=== PATIENT | male | born 1935 | race Caucasian/White ===

== ENCOUNTER 2017-02-25 21:55 | Inpatient (IN) | payer OTHER ==
[2017-02-25 21:55] VITALS: BMI 22.3
[2017-02-25] MEDS ORDERED: cefTRIAXone IV 1 gm in Dextros 1 GM in Dextrose 5% In Water 50 ML IVPB STA (22:16)
--- NOTE | 2017-02-25 22:31 | C.PDOC ---
History Of Present Illness 81 y/o male presents to ED status post prostate biopsy performed today by Dr. Jha. Patient notes that he felt well afterward around noon today. He states that he started the antibiotic course prescribed by urologist yesterday. Patient reports he developed chills and slight cough starting this evening, describing that he generally did not feel well. Denies nausea, vomiting, hematuria, or other associated symptoms. Time Seen by Provider: 02/25/17 22:04 Chief Complaint (Nursing): Shortness Of Breath History Per: Patient History/Exam Limitations: no limitations Onset/Duration Of Symptoms: Hrs Current Symptoms Are (Timing): Still Present Associated Symptoms: Chills. denies: Fever Recent travel outside of the [place]: No Past Medical History Reviewed: Historical Data, Nursing Documentation, Vital Signs Vital Signs: Last Vital Signs Temp 100.0 F H 02/25/17 23:28 Pulse 86 02/25/17 23:28 Resp 20 02/25/17 23:28 BP 141/66 02/25/17 23:28 Pulse Ox 99 02/25/17 23:28 - Medical History PMH: Benign Prostatic Hyperplasia, CAD, Diabetes (Blood sugar 119), Diverticulitis, HTN, Hypercholesterolemia, Kidney Stones, Chronic Kidney Disease , TIA Surgical History: Cholecystectomy, Coronary Stent (2007) Other Surgeries: CABG - [facility] Procedures CORONAR ARTERIOGR-2 CATH (05/06/14) ESOPHAGOGASTRODUODENOSCOPY [EGD] W/CLOSED BIOPSY (05/06/14) IRRIGATION OF EAR (02/13/14) LEFT HEART CARDIAC CATH (05/06/14) LT HEART ANGIOCARDIOGRAM (05/06/14) Family History: States: Unknown Family Hx - Social History Hx Tobacco Use: No Hx Alcohol Use: No Hx Substance Use: No Review Of Systems Constitutional: Positive for: Chills, Malaise. Negative for: Fever Cardiovascular: Negative for: Chest Pain Respiratory: Negative for: Cough, Shortness of Breath Gastrointestinal: Negative for: Nausea, Vomiting, Abdominal Pain Physical Exam - Physical Exam Appears: Non-toxic, No Acute Distress Skin: Normal Color, Warm, Dry Head: Atraumatic, Normacephalic Chest: Symmetrical Cardiovascular: Rhythm Regular Respiratory: Normal Breath Sounds, No Rales, No Rhonchi, No Wheezing Gastrointestinal/Abdominal: Soft, No Tenderness, No Guarding, No Rebound Back: Normal Inspection Extremity: Normal ROM Neurological/Psych: Oriented x3, Normal Speech, Normal Cognition ED Course And Treatment - Laboratory Results Result Diagrams: 02/25/17 22:44 02/25/17 22:44 ECG: Interpreted By Me ECG Rhythm: Sinus Rhythm, R BBB Rate From EC O2 Sat by Pulse Oximetry: 91 - Radiology CXR: Interpreted by Me CXR Interpretation: Yes: Other (s/p surg, chronic changes both bases) Progress Note: EKG, CxR, bloodwork, UA, and cultures ordered. Treated with rocephin IV. Medical Decision Making Medical Decision Making: Pt remained stable in the ED Cultures sent, rocephin ordered Labs bili 2.5 but 2y/o was 1.5, LFT ok,, and not GB tenderness Lactate not elevated CXR with chronic changes doubt pnx Case discussed with dr Jha, pt was given rocephin and gentamycin at the procedure and dc with cipro Plan admit PCP and continue rocephim Dr Gonzales, [facility] dr Sandra Hong is covering him Case discussed and pt admitted. Disposition - Disposition Disposition: HOSPITALIZED Disposition Time: 00:01 Condition: FAIR - Clinical Impression Clinical Impression: Fever, H/O prostate biopsy - Scribe Statement The provider has reviewed the documentation as recorded by the Odell Mike Provider Scribe Attestation: All medical record entries made by the Scribe were at my direction and personally dictated by me. I have reviewed the chart and agree that the record accurately reflects my personal performance of the history, physical exam, medical decision making, and the department course for this patient. I have also personally directed, reviewed, and agree with the discharge instructions and disposition. Decision To Admit - Pt Status Changed To: Hospital Disposition Of: Inpatient - Admit Certification Admit to Inpatient:: After my assessment, the patient will require hospitalization for at least two midnights. This is because of the severity of symptoms shown, intensity of services needed, and/or the medical risk in this patient being treated as an outpatient. - InPatient: Physician Admission Certification: I certify that this patient requires 2 or more midnights of care for the following reason:: see note - . Bed Request Type: Regular Admitting Physician: Jayeshkuma S Hong Patient Diagnosis: Fever, H/O prostate biopsy
[2017-02-25 22:46] LABS: BASO % 0.2 % (0.0-2.0); EOS % 0.4 % (0.0-4.0); HEMATOCRIT 40.7 % (35.0-51.0); LYMPH # 0.6 K/uL (1.0-4.3); LYMPH % 4.7 % (20.0-40.0); MEAN CELL VOLUME 95.6 fL (80.0-94.0); MEAN CORPUSCULAR HEMOGLOBIN 32.1 pg (27.0-31.0); MEAN CORPUSCULAR HGB CONC 33.5 g/dL (33.0-37.0); MONO # 0.8 K/uL (0.0-0.8); PLATELET COUNT 194 K/uL (130-400); RED CELL DISTRIBUTION WIDTH 14.2 % (11.5-14.5)
[2017-02-25 22:50] LABS: WHITE BLOOD COUNT 11.9 K/uL (4.8-10.8)
[2017-02-25 22:54] LABS: CHLORIDE 103 mmol/L (98-107)
[2017-02-25 22:55] LABS: POTASSIUM 3.9 mmol/L (3.6-5.2); SODIUM 137 mmol/L (132-148)
[2017-02-25 22:57] LABS: ALB/GLOB RATIO 1.4 (1.0-2.1); AST/SGOT 29 U/L (17-59); BILIRUBIN,TOTAL 2.2 mg/dL (0.2-1.3); BLOOD UREA NITROGEN 12 mg/dL (9-20); CARBON DIOXIDE 22 mmol/L (22-30); GFR AFRICAN-AMERICAN > 60; TOTAL PROTEIN 6.7 g/dL (6.3-8.3)
[2017-02-25 22:58] LABS: ALKALINE PHOSPHATASE 67 U/L (38-126); ALT/SGPT 24 U/L (21-72); CALCIUM 8.5 mg/dl (8.6-10.4); GLUCOSE,RANDOM 117 mg/dL (75-110)
[2017-02-25 23:06] LABS: NEUTROPHIL 85 % (50-75); TOTAL CELLS COUNTED 100
[2017-02-25 23:21] LABS: RBC URINE 90 /hpf (0-3); URINE BACTERIA OCC (<OCC); URINE BILIRUBIN NEGATIVE (NEGATIVE); URINE BLOOD 2+ (NEGATIVE); URINE COLOR Yellow (YELLOW); URINE GLUCOSE (UA) 1+ mg/dL (Normal); URINE KETONE NEGATIVE (NEGATIVE); URINE LEUKOCYTE ESTERASE NEG Leu/uL (Negative); URINE PROTEIN NEGATIVE (NEGATIVE); URINE UROBILINOGEN NORMAL mg/dL (0.2-1.0); WBC URINE 2 /hpf (0-5)
[2017-02-25 23:26] LABS: VENOUS BLOOD GAS BASE EXCESS -0.2 mmol/L (0.0-2.0); VENOUS BLOOD GAS PCO2 37 mmHg (40-60); VENOUS BLOOD PH 7.42 (7.32-7.43)
[2017-02-25] MEDS ORDERED: cefTRIAXone IV 1 gm in Dextros 50 ML IVPB ONE (23:34)
[2017-02-26] MEDS ORDERED: Moxifloxacin IV 400mg/250ml NS 250 ML IVPB SCH (00:15)
--- NOTE | 2017-02-26 08:36 | RAD ---
PROCEDURE: CHEST RADIOGRAPH, 1 VIEW HISTORY: Abdominal pain COMPARISON: 05/09/2014 FINDINGS: LUNGS: Moderate venous congestion. Patchy left basilar airspace opacity with associated small left pleural effusion. Right hilar prominence. Right midlung atelectasis. Upper lobe granulomatous changes. PLEURA: As above. CARDIOVASCULAR: Status post median sternotomy and CABG. OSSEOUS STRUCTURES: No significant abnormalities. VISUALIZED UPPER ABDOMEN: Normal. OTHER FINDINGS: None. IMPRESSION: Moderate venous congestion. Patchy left basilar airspace opacity with associated small left pleural effusion. Right hilar prominence. Right midlung atelectasis. Upper lobe granulomatous changes.
[2017-02-26] MEDS: (Novolog) Insulin Aspart, Recombinant 100 u/ml 10 ml vial SC SCH ×4 (09:33→21:18)
[2017-02-26] MEDS: Pantoprazole 40 mg EC Tab PO SCH (10:35)
[2017-02-26] MEDS: DUTASTERIDE 0.5 MG PO SCH (10:37)
--- NOTE | 2017-02-26 12:20 | CON ---
DATE: 02/26/2017 BRIEF HISTORY: The patient is an 81-year-old male from the [facility] with supposedly a diagnosis of prostate cancer diagnosed in the [facility] several years ago, but the patient was unable to bring any type of pathology reports from the [facility] to justify this diagnosis. The patient has been followed for several years and his PSA gradually started rising, and the patient had an eventual total PSA with 4Kscore which was 2.75 and 25% respectively, indicating a high risk for aggressive prostate cancer on a future prostate biopsy. A prostate MRI was done at [facility] on 01/10/2017 which showed a PIRADS 3 lesion in the peripheral zone measuring 1.6 x 0.9 cm in the left posterior lateral aspect of the upper mid gland. The patient eventually went for an MRI/US fusion guided TRUS PNBx with UroNav done at [facility] in [place] on 02/25/2017 with no adverse events during the procedure and a minimal amount of blood loss during the procedure. The patient went home and eventually spiked a temperature over 102 requiring him to come to [facility] Emergency Room for evaluation and treatment. The patient did receive IV Rocephin 1 gram and IV gentamicin 160 mg during the procedure. The patient was started back on IV Rocephin in the Emergency Room at [facility]. The patient is now being seen today and is currently feeling much better. He denies any dysuria, gross hematuria, renal colic, or abdominal pain this morning. His temperature this morning is 99.5. The patient was not on Plavix. The patient is ALLERGIC TO PLAVIX; that is his only allergy to medication. PHYSICAL EXAMINATION: GENERAL: The patient is a well-developed, well-nourished male. He is alert, oriented. HEENT: Grossly within normal limits. ABDOMEN: Soft, not distended or tender. No CVA tenderness. No suprapubic tenderness. VITAL SIGNS: Today, 02/26/2017, again shows a temperature of 99.5, pulse was 86 , blood pressure is 124/64, respirations are 20 and his O2 sat on room air is 95 %. LABORATORY EVALUATION: On 02/25/2017 showed a CBC with a WBC count of 11.9, hemoglobin of 13.6, hematocrit of 40.7 and a platelet count of 194,000. His chem profile shows a sodium of 137, potassium 3.9, chloride 103, CO2 22, BUN and creatinine of 12 and 0.9 respectively, with a GFR greater than 60. Random glucose was 117. Calcium was 8.5. Total bilirubin 2.2, AST was 29, ALT was 24. Urinalysis shows the color was yellow, clarity was clear, pH was 7.0, specific gravity 1.012; protein negative, glucose 1+, ketones negative, blood 2+ ; nitrite and bilirubin both negative, urobilinogen normal, leukocyte esterase negative, 2 WBCs, 90 RBCs and occasional bacteria per high-power field. DIAGNOSTIC IMPRESSION: Transient septicemia, status post MRI/US transrectal ultrasonography with prostate needle biopsy done on 02/25/2017 at [facility] in [place]. No definite urosepsis at this time according to his urinalysis. We will check the urine cultures and blood cultures. PLAN: Continue the patient on IV antibiotics and eventually discharge back home on oral antibiotics, which can include either Cipro or Ceftin 500 mg b.i.d. for at least 10 days. The patient will be seen in office followup in 2 weeks to discuss the results of the pathology. Efra Jha MD cc: [id number] TT: 02/26/2017 12:19:51 Confirmation # [id number] Dictation # [id number] [email or web address]
--- NOTE | 2017-02-26 18:30 | CP.PCM.CON ---
History of Present Illness - History of Present Illness History of Present Illness: 81 y/o male presents to ED status post prostate biopsy performed today by Dr. Jha. Patient notes that he felt well afterward around noon today. He states that he started the antibiotic course prescribed by urologist yesterday. Patient reports he developed chills and slight cough starting this evening, describing that he generally did not feel well. Denies nausea, vomiting, hematuria, or other associated symptoms. - Medical History PMH: Benign Prostatic Hyperplasia, CAD, Diabetes (Blood sugar 119), Diverticulitis, HTN, Hypercholesterolemia, Kidney Stones, Chronic Kidney Disease , TIA Surgical History: Cholecystectomy, Coronary Stent (2007) Other Surgeries: CABG Past Patient History - Past Medical History & Family History Past Medical History?: Yes - Past Social History Smoking Status: Never Smoked - CARDIAC Hx Cardiac Disorders: Yes Hx Hypercholesterolemia: Yes Hx Hypertension: Yes - PULMONARY Hx Respiratory Disorders: Yes Hx Respiratory Tract Infection: Yes () - NEUROLOGICAL Hx Neurological Disorder: Yes Hx Transient Ischemic Attacks (TIA): Yes - HEENT Hx HEENT Problems: Yes Other/Comment: impacted cerumen, otalgia - RENAL Hx Chronic Kidney Disease: Yes Hx Dialysis: No Hx Kidney Stones: Yes Hx Neurogenic Bladder: No Hx Pyelonephritis: No Hx Renal (Kidney) Cancer: No Hx Renal Failure: No - ENDOCRINE/METABOLIC Hx Endocrine Disorders: No - HEMATOLOGICAL/ONCOLOGICAL Hx Blood Disorders: No - INTEGUMENTARY Hx Dermatological Problems: No - MUSCULOSKELETAL/RHEUMATOLOGICAL Hx Falls: No - GASTROINTESTINAL Hx Gastrointestinal Disorders: Yes Hx Diverticulitis: Yes - GENITOURINARY/GYNECOLOGICAL Hx Genitourinary Disorders: Yes Hx Prostate Problems: Yes - PSYCHIATRIC Hx Substance Use: No - SURGICAL HISTORY Hx Surgeries: Yes Hx Cholecystectomy: Yes Hx Coronary Stent: Yes (2007) - ANESTHESIA Hx Anesthesia: Yes Hx Anesthesia Reactions: No Hx Malignant Hyperthermia: No Has any member of the family had a problem w/ anesthesia?: No Meds Allergies/Adverse Reactions: Allergies Allergy/AdvReac Type Severity Reaction Status Date / Time clopidogrel bisulfate Allergy Mild ITCHING Verified 02/26/17 07:54 [From Plavix] moxifloxacin HCl Allergy Mild ITCHING Verified 02/26/17 07:54 [From Avelox] - Medications Medications: Current Medications Acetaminophen (Tylenol 325mg Tab) 650 mg PO Q6 PRN PRN Reason: Pain, moderate (4-7) Aspirin (Ecotrin) 81 mg PO DAILY COUNT INCLUDES [facility] Last Admin: 02/26/17 10:35 Dose: 81 mg Heparin Sodium (Porcine) (Heparin) 5,000 units SC Q12 COUNT INCLUDES THE [facility] Home Med (Patient's Own Medication) 1 tab PO DAILY COUNT INCLUDES THE [facility] Last Admin: 02/26/17 10:37 Dose: 1 tab Ceftriaxone Sodium 1 gm/ (Sodium Chloride) 100 mls @ 100 mls/hr IVPB DAILY@ 1330 COUNT INCLUDES THE [facility] Last Admin: 02/26/17 14:01 Dose: 100 mls/hr Insulin Aspart (Novolog) 0 unit SC QID COUNT INCLUDES THE [facility] PRN Reason: Protocol Last Admin: 02/26/17 17:20 Dose: Not Given Metoprolol Tartrate (Lopressor) 50 mg PO DAILY COUNT INCLUDES THE [facility] Last Admin: 02/26/17 10:35 Dose: 50 mg Pantoprazole Sodium (Protonix Ec Tab) 40 mg PO DAILY COUNT INCLUDES THE [facility] Last Admin: 02/26/17 10:35 Dose: 40 mg Rosuvastatin Calcium (Crestor) 10 mg PO [facility] Results - Vital Signs Recent Vital Signs: Last Vital Signs Temp 98.4 F 02/26/17 16:00 Pulse 63 02/26/17 16:47 Resp 20 02/26/17 16:00 BP 120/64 02/26/17 16:00 Pulse Ox 98 02/26/17 16:00 - Labs Result Diagrams: 02/25/17 22:44 02/25/17 22:44 Labs: Laboratory Results - last 24 hr 02/26/17 02/26/17 02/26/17 08:46 12:10 16:09 POC Glucose (mg/dL) 120 H 97 137 H
--- NOTE | 2017-02-26 18:50 | CP.PCM.HP ---
History of Present Illness - History of Present Illness History of Present Illness: 81-year-old male presented to ED S/P prostate biopsy performed today by Dr. Jha. Patient notes that he felt well afterward around noon today. He states that he started the antibiotic course prescribed by it urologist yesterday. Patient reports he developed chills and a slight cough starting this evening, describing that he generally did not feel well. Denies nausea, vomiting, hematuria or any other associated symptoms. Present on Admission - Present on Admission Any Indicators Present on Admission: No Past Patient History - Past Medical History & Family History Past Medical History?: Yes - Past Social History Smoking Status: Never Smoked - CARDIAC Hx Cardiac Disorders: Yes Hx Hypercholesterolemia: Yes Hx Hypertension: Yes - PULMONARY Hx Respiratory Disorders: Yes Hx Respiratory Tract Infection: Yes (UPPER) - NEUROLOGICAL Hx Neurological Disorder: Yes Hx Transient Ischemic Attacks (TIA): Yes - HEENT Hx HEENT Problems: Yes Other/Comment: impacted cerumen, otalgia - RENAL Hx Chronic Kidney Disease: Yes Hx Dialysis: No Hx Kidney Stones: Yes Hx Neurogenic Bladder: No Hx Pyelonephritis: No Hx Renal (Kidney) Cancer: No Hx Renal Failure: No - ENDOCRINE/METABOLIC Hx Endocrine Disorders: No - HEMATOLOGICAL/ONCOLOGICAL Hx Blood Disorders: No - INTEGUMENTARY Hx Dermatological Problems: No - MUSCULOSKELETAL/RHEUMATOLOGICAL Hx Falls: No - GASTROINTESTINAL Hx Gastrointestinal Disorders: Yes Hx Diverticulitis: Yes - GENITOURINARY/GYNECOLOGICAL Hx Genitourinary Disorders: Yes Hx Prostate Problems: Yes - PSYCHIATRIC Hx Substance Use: No - SURGICAL HISTORY Hx Surgeries: Yes Hx Cholecystectomy: Yes Hx Coronary Stent: Yes (2007) - ANESTHESIA Hx Anesthesia: Yes Hx Anesthesia Reactions: No Hx Malignant Hyperthermia: No Has any member of the family had a problem w/ anesthesia?: No Meds Allergies/Adverse Reactions: Allergies Allergy/AdvReac Type Severity Reaction Status Date / Time clopidogrel bisulfate Allergy Mild ITCHING Verified 06/12/17 10:06 [From Plavix] moxifloxacin HCl Allergy Mild ITCHING Verified 06/12/17 10:06 [From Avelox] Physical Exam - Constitutional Appears: Well - Head Exam Head Exam: ATRAUMATIC, NORMAL INSPECTION, NORMOCEPHALIC - Eye Exam Eye Exam: EOMI, Normal appearance, PERRL Pupil Exam: NORMAL ACCOMODATION, PERRL - ENT Exam ENT Exam: Mucous Membranes Dry - Neck Exam Neck exam: Positive for: Normal Inspection - Respiratory Exam Respiratory Exam: Decreased Breath Sounds - Cardiovascular Exam Cardiovascular Exam: REGULAR RHYTHM, +S1, +S2 - GI/Abdominal Exam GI & Abdominal Exam: Diminished Bowel Sounds, Soft - Rectal Exam Rectal Exam: Deferred Results - Vital Signs Recent Vital Signs: Last Vital Signs Temp 98.4 F 02/26/17 16:00 Pulse 63 02/26/17 16:47 Resp 20 02/26/17 16:00 BP 120/64 02/26/17 16:00 Pulse Ox 98 02/26/17 16:00 - Labs Result Diagrams: 02/28/17 16:56 02/28/17 16:56 Labs: Laboratory Results - last 24 hr 02/26/17 02/26/17 02/26/17 08:46 12:10 16:09 POC Glucose (mg/dL) 120 H 97 137 H Assessment & Plan (1) Abdominal pain, acute, left lower quadrant Status: Acute (2) Acute upper respiratory infection Status: Acute (3) Bronchitis Status: Acute (4) COPD exacerbation Status: Acute (5) Drainage of external ear Status: Acute (6) Dysphagia Status: Acute (7) Dyspnea Status: Acute (8) Fever Status: Acute (9) H/O prostate biopsy Status: Acute (10) Headache Status: Acute (11) Impacted cerumen Status: Acute (12) Otalgia Status: Acute (13) Pneumonia Status: Acute - Assessment and Plan (Free Text) Plan: Consult ID Consult nephrology Aspirin Porcine Ceftriaxone NovoLog Lopressor Protonix Crestor
--- NOTE | 2017-02-27 01:32 | CON ---
DATE: 02/26/2017 SUMMARY: This is an 81-year-old male, patient of Dr. Austin Hong, referred for infectious dise ase evaluation with urosepsis. The patient was in his usual state of health until the day of admissi on when he started spiking fevers after having a prostate biopsy for BPH. The patient developed chil ls, fatigue, slight cough and generalized malaise. He contacted his urologist, who advised Emergency Room evaluation. ER evaluation consisted of septic workup, which revealed likely urosepsis and the patient was started on IV antibiotic therapy and infectious disease consultation was requested. It s hould be noted the patient has multiple comorbidities. PAST MEDICAL HISTORY: Coronary artery disease status post CABG, diabetes, diverticulitis, hypertensi on, hyperlipidemia, chronic kidney disease, nephrolithiasis. PAST SURGICAL HISTORY: Positive for cholecystectomy, positive for coronary stent 2007. Also positiv e for CABG. MEDICATIONS: Rocephin 1 gram IV daily, Crestor 10 mg p.o. daily, aspirin 81 mg p.o. daily, heparin 5 000 subQ b.i.d., metoprolol 50 mg p.o. b.i.d., insulin according to sliding scale, pantoprazole, and Tylenol. ALLERGIES: INCLUDE PLAVIX AND AVELOX. FAMILY HISTORY: Positive for hypertension. SOCIAL HISTORY: Does not drink, smoke, or use intravenous drugs. REVIEW OF SYSTEMS: Positive for fever, chills. Denies chest pain, no headache, no neck stiffness, n o photophobia, no loss of consciousness, no seizures. No abdominal pain, nausea, vomiting, diarrhea. No change in bowel habits. No frequency or urgency of urination. No loss of consciousness. No re cent travel. No pets. No exposure to toxins or chemicals. LABORATORY DATA: Reveal a white count of 11,000, left shift, hemoglobin 12, platelet count 267,000. BUN and creatinine levels noted. Urinalysis showed white blood cells, red blood cells. Blood cultu res done are pending. Urine culture is pending. IMPRESSION: Possible urosepsis, status post prostate biopsy, rule out bacteremia. No gross evidence of pneumonia. Chest x-ray to be reviewed. Agree with current IV antibiotic therapy. Will follow w ith you and add further recommendations. Thank you very much for allowing me to participate in the care of this patient. Antonio Huddleston MD cc: [id number] TT: 02/27/2017 01:32:19 Confirmation # [id number] Dictation # [id number] mn
[2017-02-27 06:55] LABS: CHLORIDE 103 mmol/L (98-107); POTASSIUM 3.6 mmol/L (3.6-5.2); SODIUM 136 mmol/L (132-148)
[2017-02-27 06:57] LABS: GFR AFRICAN-AMERICAN > 60
[2017-02-27 06:58] LABS: BLOOD UREA NITROGEN 14 mg/dL (9-20); CARBON DIOXIDE 23 mmol/L (22-30); GLUCOSE,RANDOM 118 mg/dL (75-110)
[2017-02-27 07:15] LABS: BASO % 0.1 % (0.0-2.0); EOS % 0.1 % (0.0-4.0); HEMATOCRIT 40.7 % (35.0-51.0); LYMPH % 5.9 % (20.0-40.0); MEAN CELL VOLUME 95.6 fL (80.0-94.0); MEAN CORPUSCULAR HEMOGLOBIN 32.1 pg (27.0-31.0); MEAN CORPUSCULAR HGB CONC 33.5 g/dL (33.0-37.0); MEAN PLATELET VOLUME 8.4 fL (7.2-11.7); MONO # 1.8 K/uL (0.0-0.8); PLATELET COUNT 171 K/uL (130-400); RED CELL DISTRIBUTION WIDTH 14.2 % (11.5-14.5)
[2017-02-27 09:11] LABS: NEUTROPHIL 82 % (50-75); TOTAL CELLS COUNTED 100
[2017-02-27] MEDS: DUTASTERIDE 0.5 MG PO SCH (09:20)
[2017-02-27] MEDS: Pantoprazole 40 mg EC Tab PO SCH (09:20)
[2017-02-27] MEDS: (Novolog) Insulin Aspart, Recombinant 100 u/ml 10 ml vial SC SCH ×4 (09:23→21:20)
--- NOTE | 2017-02-27 17:07 | CP.PCM.PN ---
Subjective - Date & Time of Evaluation Date of Evaluation: 02/27/17 Time of Evaluation: 11:00 - Subjective Subjective: clinically same Objective - Vital Signs/Intake and Output Vital Signs (last 24 hours): Temp Pulse Resp BP Pulse Ox 98.2 F 74 20 111/51 L 97 02/27/17 16:31 02/27/17 16:46 02/27/17 16:31 02/27/17 16:31 02/27/17 16:31 Intake and Output: 02/27/17 02/27/17 06:59 18:59 Intake Total 500 Output Total 300 Balance -300 500 - Medications Medications: Current Medications Acetaminophen (Tylenol 325mg Tab) 650 mg PO Q6 PRN PRN Reason: Pain, moderate (4-7) Aspirin (Ecotrin) 81 mg PO DAILY [facility] Last Admin: 02/27/17 09:19 Dose: 81 mg Heparin Sodium (Porcine) (Heparin) 5,000 units SC Q12 [facility] Last Admin: 02/27/17 09:20 Dose: 5,000 units Home Med (Patient's Own Medication) 1 tab PO DAILY [facility] Last Admin: 02/27/17 09:20 Dose: 1 tab Ceftriaxone Sodium 1 gm/ (Sodium Chloride) 100 mls @ 100 mls/hr IVPB DAILY@ 1330 [facility] Last Admin: 02/27/17 13:27 Dose: 100 mls/hr Insulin Aspart (Novolog) 0 unit SC QID [facility] PRN Reason: Protocol Last Admin: 02/27/17 13:00 Dose: Not Given Metoprolol Tartrate (Lopressor) 50 mg PO DAILY [facility] Last Admin: 02/27/17 09:20 Dose: 50 mg Pantoprazole Sodium (Protonix Ec Tab) 40 mg PO DAILY [facility] Last Admin: 02/27/17 09:20 Dose: 40 mg Rosuvastatin Calcium (Crestor) 10 mg PO HS [facility] Last Admin: 02/26/17 21:16 Dose: 10 mg - Labs Labs: 02/27/17 06:32 02/27/17 06:32 - Constitutional Appears: Well - Head Exam Head Exam: ATRAUMATIC, NORMAL INSPECTION, NORMOCEPHALIC - Eye Exam Eye Exam: EOMI, Normal appearance, PERRL Pupil Exam: NORMAL ACCOMODATION, PERRL - ENT Exam ENT Exam: Mucous Membranes Moist, Normal Exam - Neck Exam Neck Exam: Full ROM, Normal Inspection. absent: Lymphadenopathy - Respiratory Exam Respiratory Exam: Decreased Breath Sounds - Cardiovascular Exam Cardiovascular Exam: REGULAR RHYTHM, +S1, +S2 - GI/Abdominal Exam GI & Abdominal Exam: Soft, Diminished Bowel Sounds - Rectal Exam Rectal Exam: Deferred Assessment and Plan (1) Abdominal pain, acute, left lower quadrant Status: Acute (2) Acute upper respiratory infection Status: Acute (3) Bronchitis Status: Acute (4) COPD exacerbation Status: Acute (5) Drainage of external ear Status: Acute (6) Dysphagia Status: Acute (7) Dyspnea Status: Acute (8) Fever Status: Acute (9) H/O prostate biopsy Status: Acute (10) Headache Status: Acute (11) Impacted cerumen Status: Acute (12) Otalgia Status: Acute (13) Pneumonia Status: Acute - Assessment and Plan (Free Text) Plan: Dr. sanches Continue aspirin Ceftriaxone Accu-Chek Insulin aspart Lopressor
--- NOTE | 2017-02-27 19:12 | CP.PCM.PN ---
Subjective - Date & Time of Evaluation Date of Evaluation: 02/27/17 Time of Evaluation: 08:00 - Subjective Subjective: fever s/p prostate bx would get eval cont iv rx Objective - Vital Signs/Intake and Output Vital Signs (last 24 hours): Temp Pulse Resp BP Pulse Ox 98.2 F 74 20 111/51 L 97 02/27/17 16:31 02/27/17 16:46 02/27/17 16:31 02/27/17 16:31 02/27/17 16:31 Intake and Output: 02/27/17 02/28/17 18:59 06:59 Intake Total 500 Balance 500 - Medications Medications: Current Medications Acetaminophen (Tylenol 325mg Tab) 650 mg PO Q6 PRN PRN Reason: Pain, moderate (4-7) Aspirin (Ecotrin) 81 mg PO DAILY [facility] Last Admin: 02/27/17 09:19 Dose: 81 mg Heparin Sodium (Porcine) (Heparin) 5,000 units SC Q12 [facility] Last Admin: 02/27/17 09:20 Dose: 5,000 units Home Med (Patient's Own Medication) 1 tab PO DAILY [facility] Last Admin: 02/27/17 09:20 Dose: 1 tab Ceftriaxone Sodium 1 gm/ (Sodium Chloride) 100 mls @ 100 mls/hr IVPB DAILY@ 1330 [facility] Last Admin: 02/27/17 13:27 Dose: 100 mls/hr Insulin Aspart (Novolog) 0 unit SC QID [facility] PRN Reason: Protocol Last Admin: 02/27/17 13:00 Dose: Not Given Metoprolol Tartrate (Lopressor) 50 mg PO DAILY [facility] Last Admin: 02/27/17 09:20 Dose: 50 mg Pantoprazole Sodium (Protonix Ec Tab) 40 mg PO DAILY [facility] Last Admin: 02/27/17 09:20 Dose: 40 mg Rosuvastatin Calcium (Crestor) 10 mg PO HS [facility] Last Admin: 02/26/17 21:16 Dose: 10 mg - Labs Labs: 02/27/17 06:32 02/27/17 06:32 - Constitutional Appears: Non-toxic, Cachectic, Chronically Ill - Head Exam Head Exam: NORMOCEPHALIC - Eye Exam Eye Exam: PERRL. absent: Scleral icterus - ENT Exam ENT Exam: Mucous Membranes Dry - Neck Exam Neck Exam: absent: Lymphadenopathy - Respiratory Exam Respiratory Exam: Decreased Breath Sounds, Rhonchi - Cardiovascular Exam Cardiovascular Exam: REGULAR RHYTHM, +S1, +S2 - GI/Abdominal Exam GI & Abdominal Exam: Distended, Soft. absent: Tenderness - Rectal Exam Rectal Exam: Deferred - Exam Exam: NORMAL INSPECTION Assessment and Plan - Assessment and Plan (Free Text) Plan: uti/ r/o sepsis s/p biopsy consider eval monitor urine output may need imaging of kidney
--- NOTE | 2017-02-27 19:54 | PN ---
DATE: 02/27/2017 TIME OF FOLLOWUP: 7:20 p.m. The patient's pathology report is back from his MRI/TRUS PNBx which came back positive for [place] 6 (3+3) prostate cancer which was also associated with high-grade PIN and atypical cells, indicating a [id number] risk disease. The patient currently is feeling relatively comfortable. His white count, however, has increased to 16,000. The patient is currently being followed by Dr. Tara love, infectious disease. His platelet count is 171,000. His chem profile shows a sodium of 136, po tassium 3.6, chloride 103, CO2 of 23, BUN and creatinine of 14 and 1.0 respectively, with a GFR of gr eater than 60. His random glucose was 118, and his calcium was 8.0. His blood cultures are no growt h after 24 hours, and his urine culture is also no growth. His chest x-ray done on 02/25/2017 showed patchy left basilar airspace opacity with associated small left pleural effusion, and a right mid-lung atelectasis, and upper lobe granulomatous changes. Plan for this patient and treatment of his septicemia is to continue IV antibiotics as per Dr. Huddleston . Efra Jha MD cc: [id number] TT: 02/27/2017 19:53:32 Confirmation # [id number] Dictation # [id number] andrea
--- NOTE | 2017-02-28 08:09 | US ---
Abdominal ultrasound History: Abdominal pain. Comparison: None available. Technique: Real-time sonography was performed through the abdomen. Findings: Liver: 13.2 centimeters in length. Increased echogenicity suggestive for fatty infiltration. Prior cholecystectomy. Common bile duct measures 6.4 millimeters, within normal limits. Visualized portions of the pancreas are preserved. Pancreatic tail not well visualized. Spleen measures 8.1 centimeters in length, within normal limits. Visualized portions of the aorta and IVC are preserved. Right kidney: 11.3 x 5.9 x 4.8 centimeters. No calculi or hydronephrosis. Hypoechoic cysts measuring 3.3 x 3.7 x 3.7 centimeters and 1.1 x 1.2 x 1.1 centimeters. Left Kidney: 10.2 x 5.7 x 4.9 centimeters. No calculi or hydronephrosis. Hypoechoic prominent cyst measuring 8.6 x 9.1 x 8.6 centimeters. In addition, there is a suggestion of a heterogeneous echogenic solid mass measuring 3.6 x 2.8 x 3.2 centimeters. Impression: Suggestion of a 3.6 centimeter heterogeneous echogenic mass in the left kidney. Further evaluation with contrast-enhanced multiphasic CT or MR is recommended to better evaluate this lesion and exclude possible neoplasm. Fatty infiltration of the liver. Prior cholecystectomy. Pancreas not well visualized. Bilateral renal cysts. These findings were preliminarily reported at 8:46 p.m. on 02/27/[address] Miles Sutton from [facility].
[2017-02-28] MEDS: (Novolog) Insulin Aspart, Recombinant 100 u/ml 10 ml vial SC SCH ×4 (10:10→21:28)
[2017-02-28] MEDS: Pantoprazole 40 mg EC Tab PO SCH (10:14)
[2017-02-28] MEDS: DUTASTERIDE 0.5 MG PO SCH (10:14)
--- NOTE | 2017-02-28 14:25 | CP.PCM.PN ---
Subjective - Date & Time of Evaluation Date of Evaluation: 02/28/17 Time of Evaluation: 11:00 - Subjective Subjective: clinically same Objective - Vital Signs/Intake and Output Vital Signs (last 24 hours): Temp Pulse Resp BP Pulse Ox 98 F 73 20 135/60 96 02/28/17 08:55 02/28/17 08:55 02/28/17 08:55 02/28/17 08:55 02/28/17 08:55 Intake and Output: 02/28/17 02/28/17 06:59 18:59 Intake Total 350 Output Total 600 Balance -250 - Medications Medications: Current Medications Acetaminophen (Tylenol 325mg Tab) 650 mg PO Q6 PRN PRN Reason: Pain, moderate (4-7) Aspirin (Ecotrin) 81 mg PO DAILY [facility] 234 BEDS AT THE [facility] Last Admin: 02/28/17 10:14 Dose: 81 mg Heparin Sodium (Porcine) (Heparin) 5,000 units SC Q12 COUNTS INCLUDE 234 BEDS AT THE [facility] Last Admin: 02/28/17 10:14 Dose: 5,000 units Home Med (Patient's Own Medication) 1 tab PO DAILY [facility]S INCLUDE 234 BEDS AT THE [facility] Last Admin: 02/28/17 10:14 Dose: 1 tab Ceftriaxone Sodium 1 gm/ (Sodium Chloride) 100 mls @ 100 mls/hr IVPB DAILY@ 1330 [facility]S [facility]CLUDE 234 BEDS AT THE [facility] Last Admin: 02/28/17 13:00 Dose: 100 mls/hr Insulin Aspart (Novolog) 0 unit SC QID COUNTS INCLUDE 234 BEDS AT THE [facility] PRN Reason: Protocol Last Admin: 02/28/17 12:59 Dose: Not Given Metoprolol Tartrate (Lopressor) 50 mg PO DAILY COUNTS INCLUDE 234 BEDS AT THE [facility] Last Admin: 02/28/17 10:15 Dose: 50 mg Pantoprazole Sodium (Protonix Ec Tab) 40 mg PO DAILY [facility]S INCLUDE 234 BEDS AT THE [facility] Last Admin: 02/28/17 10:14 Dose: 40 mg Rosuvastatin Calcium (Crestor) 10 mg PO HS COUNTS INCLUDE 234 BEDS AT THE [facility] Last Admin: 02/27/17 21:19 Dose: 10 mg - Labs Labs: 02/27/17 06:32 02/27/17 06:32 - Constitutional Appears: Well - Head Exam Head Exam: ATRAUMATIC, NORMAL INSPECTION, NORMOCEPHALIC - Eye Exam Eye Exam: EOMI, Normal appearance, PERRL Pupil Exam: NORMAL ACCOMODATION, PERRL - ENT Exam ENT Exam: Mucous Membranes Moist, Normal Exam - Neck Exam Neck Exam: Full ROM, Normal Inspection. absent: Lymphadenopathy - Respiratory Exam Respiratory Exam: Decreased Breath Sounds - Cardiovascular Exam Cardiovascular Exam: REGULAR RHYTHM, +S1, +S2 - GI/Abdominal Exam GI & Abdominal Exam: Soft, Diminished Bowel Sounds - Rectal Exam Rectal Exam: Deferred Assessment and Plan (1) Abdominal pain, acute, left lower quadrant Status: Acute (2) Acute upper respiratory infection Status: Acute (3) Bronchitis Status: Acute (4) COPD exacerbation Status: Acute (5) Drainage of external ear Status: Acute (6) Dysphagia Status: Acute (7) Dyspnea Status: Acute (8) Fever Status: Acute (9) H/O prostate biopsy Status: Acute (10) Headache Status: Acute (11) Impacted cerumen Status: Acute (12) Otalgia Status: Acute (13) Pneumonia Status: Acute - Assessment and Plan (Free Text) Plan: Awaiting culture results Continue same Blood sugar monitoring Statin Aspirin DVT prophylaxis Consults on board
[2017-02-28 17:03] LABS: BASO % 0.2 % (0.0-2.0); EOS % 0.1 % (0.0-4.0); HEMATOCRIT 41.9 % (35.0-51.0); LYMPH # 0.7 K/uL (1.0-4.3); LYMPH % 4.5 % (20.0-40.0); MEAN CELL VOLUME 96.1 fL (80.0-94.0); MEAN CORPUSCULAR HEMOGLOBIN 31.9 pg (27.0-31.0); MEAN CORPUSCULAR HGB CONC 33.2 g/dL (33.0-37.0); MEAN PLATELET VOLUME 8.5 fL (7.2-11.7); MONO # 1.8 K/uL (0.0-0.8); MONO % 11.8 % (0.0-10.0); PLATELET COUNT 182 K/uL (130-400); RED CELL DISTRIBUTION WIDTH 14.3 % (11.5-14.5)
[2017-02-28 17:10] LABS: CHLORIDE 100 mmol/L (98-107); POTASSIUM 3.6 mmol/L (3.6-5.2); SODIUM 138 mmol/L (132-148)
[2017-02-28 17:12] LABS: ALB/GLOB RATIO 1.2 (1.0-2.1); ALKALINE PHOSPHATASE 78 U/L (38-126); AST/SGOT 37 U/L (17-59); BILIRUBIN,TOTAL 1.5 mg/dL (0.2-1.3); CARBON DIOXIDE 23 mmol/L (22-30); GFR AFRICAN-AMERICAN > 60; TOTAL PROTEIN 7.2 g/dL (6.3-8.3)
[2017-02-28 17:13] LABS: ALT/SGPT 33 U/L (21-72); BLOOD UREA NITROGEN 15 mg/dL (9-20); GLUCOSE,RANDOM 126 mg/dL (75-110)
[2017-02-28 17:27] LABS: NEUTROPHIL 86 % (50-75); TOTAL CELLS COUNTED 100
--- NOTE | 2017-02-28 18:42 | CP.PCM.PN ---
Subjective - Date & Time of Evaluation Date of Evaluation: 02/28/17 Time of Evaluation: 08:00 - Subjective Subjective: CULTURES NEG THUS FAR WBC COMING DOEN CONT RX Objective - Vital Signs/Intake and Output Vital Signs (last 24 hours): Temp Pulse Resp BP Pulse Ox 100.6 F H 71 20 103/55 L 97 02/28/17 16:13 02/28/17 16:13 02/28/17 16:13 02/28/17 16:13 02/28/17 16:13 Intake and Output: 02/28/17 02/28/17 06:59 18:59 Intake Total 350 530 Output Total 600 Balance -250 530 - Medications Medications: Current Medications Acetaminophen (Tylenol 325mg Tab) 650 mg PO Q6 PRN PRN Reason: Pain, moderate (4-7) Aspirin (Ecotrin) 81 mg PO DAILY [facility] Last Admin: 02/28/17 10:14 Dose: 81 mg Heparin Sodium (Porcine) (Heparin) 5,000 units SC Q12 [facility] Last Admin: 02/28/17 10:14 Dose: 5,000 units Home Med (Patient's Own Medication) 1 tab PO DAILY [facility] Last Admin: 02/28/17 10:14 Dose: 1 tab Ceftriaxone Sodium 1 gm/ (Sodium Chloride) 100 mls @ 100 mls/hr IVPB DAILY@ 1330 [facility] Last Admin: 02/28/17 13:00 Dose: 100 mls/hr Insulin Aspart (Novolog) 0 unit SC QID [facility] PRN Reason: Protocol Last Admin: 02/28/17 12:59 Dose: Not Given Metoprolol Tartrate (Lopressor) 50 mg PO DAILY [facility] Last Admin: 02/28/17 10:15 Dose: 50 mg Pantoprazole Sodium (Protonix Ec Tab) 40 mg PO DAILY [facility] Last Admin: 02/28/17 10:14 Dose: 40 mg Rosuvastatin Calcium (Crestor) 10 mg PO HS [facility] Last Admin: 02/27/17 21:19 Dose: 10 mg - Labs Labs: 02/28/17 16:56 02/28/17 16:56
[2017-03-01] MEDS: (Novolog) Insulin Aspart, Recombinant 100 u/ml 10 ml vial SC SCH ×4 (09:36→21:51)
[2017-03-01] MEDS: DUTASTERIDE 0.5 MG PO SCH (10:36)
[2017-03-01] MEDS: Pantoprazole 40 mg EC Tab PO SCH (10:36)
--- NOTE | 2017-03-01 13:39 | CP.PCM.PN ---
Subjective - Date & Time of Evaluation Date of Evaluation: 03/01/17 Time of Evaluation: 11:00 - Subjective Subjective: clinically same Objective - Vital Signs/Intake and Output Vital Signs (last 24 hours): Temp Pulse Resp BP Pulse Ox 97.6 F 68 19 112/61 96 03/01/17 08:00 03/01/17 08:00 03/01/17 08:00 03/01/17 08:00 03/01/17 08:00 Intake and Output: 03/01/17 03/01/17 06:59 18:59 Intake Total 240 450 Balance 240 450 - Medications Medications: Current Medications Acetaminophen (Tylenol 325mg Tab) 650 mg PO Q6 PRN PRN Reason: Pain, moderate (4-7) Aspirin (Ecotrin) 81 mg PO DAILY [facility] Last Admin: 02/28/17 10:14 Dose: 81 mg Heparin Sodium (Porcine) (Heparin) 5,000 units SC Q12 [facility] Last Admin: 03/01/17 10:36 Dose: 5,000 units Home Med (Patient's Own Medication) 1 tab PO DAILY [facility] Last Admin: 03/01/17 10:36 Dose: 1 tab Ceftriaxone Sodium 1 gm/ (Sodium Chloride) 100 mls @ 100 mls/hr IVPB DAILY@ 1330 [facility] Last Admin: 02/28/17 13:00 Dose: 100 mls/hr Insulin Aspart (Novolog) 0 unit SC QID [facility] PRN Reason: Protocol Last Admin: 03/01/17 09:36 Dose: Not Given Metoprolol Tartrate (Lopressor) 50 mg PO DAILY [facility] Last Admin: 03/01/17 10:31 Dose: Not Given Pantoprazole Sodium (Protonix Ec Tab) 40 mg PO DAILY [facility] Last Admin: 03/01/17 10:36 Dose: 40 mg Rosuvastatin Calcium (Crestor) 10 mg PO HS [facility] Last Admin: 02/28/17 21:24 Dose: 10 mg - Labs Labs: 02/28/17 16:56 02/28/17 16:56 - Constitutional Appears: Well - Head Exam Head Exam: ATRAUMATIC, NORMAL INSPECTION, NORMOCEPHALIC - Eye Exam Eye Exam: EOMI, Normal appearance, PERRL Pupil Exam: NORMAL ACCOMODATION, PERRL - ENT Exam ENT Exam: Mucous Membranes Moist, Normal Exam - Neck Exam Neck Exam: Full ROM, Normal Inspection. absent: Lymphadenopathy - Respiratory Exam Respiratory Exam: Decreased Breath Sounds - Cardiovascular Exam Cardiovascular Exam: REGULAR RHYTHM, +S1, +S2 - GI/Abdominal Exam GI & Abdominal Exam: Soft, Diminished Bowel Sounds - Rectal Exam Rectal Exam: Deferred Assessment and Plan (1) Abdominal pain, acute, left lower quadrant Status: Acute (2) Acute upper respiratory infection Status: Acute (3) Bronchitis Status: Acute (4) COPD exacerbation Status: Acute (5) Drainage of external ear Status: Acute (6) Dysphagia Status: Acute (7) Dyspnea Status: Acute (8) Fever Status: Acute (9) H/O prostate biopsy Status: Acute (10) Headache Status: Acute (11) Impacted cerumen Status: Acute (12) Otalgia Status: Acute (13) Pneumonia Status: Acute - Assessment and Plan (Free Text) Plan: Dr. sanches Continue antibiotics Accu-Chek Lopressor Labs next a.m.
[2017-03-01] MEDS ORDERED: Benzocaine/Menthol (Cepacol) Lozenge MT PRN (20:35)
[2017-03-02] MEDS: (Novolog) Insulin Aspart, Recombinant 100 u/ml 10 ml vial SC SCH ×4 (10:00→21:28)
[2017-03-02] MEDS: DUTASTERIDE 0.5 MG PO SCH ×2 (10:00→12:53)
[2017-03-02] MEDS: Pantoprazole 40 mg EC Tab PO SCH ×2 (10:00→12:56)
--- NOTE | 2017-03-02 11:36 | CP.PCM.PN ---
Subjective - Date & Time of Evaluation Date of Evaluation: 03/02/17 Time of Evaluation: 11:00 - Subjective Subjective: clinically same Objective - Vital Signs/Intake and Output Vital Signs (last 24 hours): Temp Pulse Resp BP Pulse Ox 97.5 F L 76 20 132/65 96 03/02/17 07:59 03/02/17 07:59 03/02/17 07:59 03/02/17 07:59 03/02/17 07:59 Intake and Output: 03/02/17 03/02/17 06:59 18:59 Intake Total 240 Balance 240 - Medications Medications: Current Medications Acetaminophen (Tylenol 325mg Tab) 650 mg PO Q6 PRN PRN Reason: Pain, moderate (4-7) Aspirin (Ecotrin) 81 mg PO DAILY [facility] Last Admin: 03/02/17 10:00 Dose: Not Given Benzocaine/Menthol (Cepacol Sore Throat) 1 olesya MT Q6 PRN PRN Reason: Sore Throat Last Admin: 03/01/17 20:53 Dose: 1 olesya Home Med (Patient's Own Medication) 1 tab PO DAILY [facility] Last Admin: 03/02/17 10:00 Dose: Not Given Ceftriaxone Sodium 1 gm/ (Sodium Chloride) 100 mls @ 100 mls/hr IVPB DAILY@ 1330 [facility] Last Admin: 03/01/17 13:52 Dose: 100 mls/hr Insulin Aspart (Novolog) 0 unit SC QID [facility] PRN Reason: Protocol Last Admin: 03/02/17 10:00 Dose: Not Given Metoprolol Tartrate (Lopressor) 50 mg PO DAILY [facility] Last Admin: 03/02/17 10:00 Dose: Not Given Pantoprazole Sodium (Protonix Ec Tab) 40 mg PO DAILY [facility] Last Admin: 03/02/17 10:00 Dose: Not Given Rosuvastatin Calcium (Crestor) 10 mg PO HS [facility] Last Admin: 03/01/17 21:47 Dose: 10 mg - Labs Labs: 02/28/17 16:56 02/28/17 16:56 - Constitutional Appears: Well - Head Exam Head Exam: ATRAUMATIC, NORMAL INSPECTION, NORMOCEPHALIC - Eye Exam Eye Exam: EOMI, Normal appearance, PERRL Pupil Exam: NORMAL ACCOMODATION, PERRL - ENT Exam ENT Exam: Mucous Membranes Moist, Normal Exam - Neck Exam Neck Exam: Full ROM, Normal Inspection. absent: Lymphadenopathy - Respiratory Exam Respiratory Exam: Decreased Breath Sounds - Cardiovascular Exam Cardiovascular Exam: REGULAR RHYTHM, +S1, +S2 - GI/Abdominal Exam GI & Abdominal Exam: Soft, Diminished Bowel Sounds - Rectal Exam Rectal Exam: Deferred Assessment and Plan (1) Abdominal pain, acute, left lower quadrant Status: Acute (2) Acute upper respiratory infection Status: Acute (3) Bronchitis Status: Acute (4) COPD exacerbation Status: Acute (5) Drainage of external ear Status: Acute (6) Dysphagia Status: Acute (7) Dyspnea Status: Acute (8) Fever Status: Acute (9) H/O prostate biopsy Status: Acute (10) Headache Status: Acute (11) Impacted cerumen Status: Acute (12) Otalgia Status: Acute (13) Pneumonia Status: Acute - Assessment and Plan (Free Text) Plan: Continue same Continue antibiotics Physical therapy Consults on board Labs noted
--- NOTE | 2017-03-02 15:16 | CP.PCM.PN ---
Subjective - Date & Time of Evaluation Date of Evaluation: 03/02/17 Time of Evaluation: 09:00 - Subjective Subjective: afeb on iv antibiotics left kidney mass noted for possible bx Objective - Vital Signs/Intake and Output Vital Signs (last 24 hours): Temp Pulse Resp BP Pulse Ox 97.5 F L 76 20 132/65 96 03/02/17 07:59 03/02/17 07:59 03/02/17 07:59 03/02/17 07:59 03/02/17 07:59 Intake and Output: 03/02/17 03/02/17 06:59 18:59 Intake Total 240 Balance 240 - Medications Medications: Current Medications Acetaminophen (Tylenol 325mg Tab) 650 mg PO Q6 PRN PRN Reason: Pain, moderate (4-7) Aspirin (Ecotrin) 81 mg PO DAILY [facility] Last Admin: 03/02/17 12:54 Dose: 81 mg Benzocaine/Menthol (Cepacol Sore Throat) 1 olesya MT Q6 PRN PRN Reason: Sore Throat Last Admin: 03/01/17 20:53 Dose: 1 olesya Home Med (Patient's Own Medication) 1 tab PO DAILY [facility] Last Admin: 03/02/17 12:53 Dose: 1 tab Ceftriaxone Sodium 1 gm/ (Sodium Chloride) 100 mls @ 100 mls/hr IVPB DAILY@ 1330 [facility] Last Admin: 03/02/17 13:04 Dose: 100 mls/hr Insulin Aspart (Novolog) 0 unit SC QID [facility] PRN Reason: Protocol Last Admin: 03/02/17 14:00 Dose: Not Given Metoprolol Tartrate (Lopressor) 50 mg PO DAILY [facility] Last Admin: 03/02/17 12:54 Dose: 50 mg Pantoprazole Sodium (Protonix Ec Tab) 40 mg PO DAILY [facility] Last Admin: 03/02/17 12:56 Dose: 40 mg Rosuvastatin Calcium (Crestor) 10 mg PO HS [facility] Last Admin: 03/01/17 21:47 Dose: 10 mg - Labs Labs: 02/28/17 16:56 02/28/17 16:56 - Constitutional Appears: Non-toxic, Cachectic, Chronically Ill - Head Exam Head Exam: NORMOCEPHALIC - Eye Exam Eye Exam: PERRL. absent: Scleral icterus - ENT Exam ENT Exam: Mucous Membranes Dry, Normal External Ear Exam - Neck Exam Neck Exam: absent: Lymphadenopathy - Respiratory Exam Respiratory Exam: Decreased Breath Sounds, Rhonchi - Cardiovascular Exam Cardiovascular Exam: REGULAR RHYTHM, +S1, +S2 - GI/Abdominal Exam GI & Abdominal Exam: Distended, Soft. absent: Tenderness - Rectal Exam Rectal Exam: Deferred - Exam Exam: NORMAL INSPECTION - Extremities Exam Extremities Exam: absent: Calf Tenderness, Pedal Edema - Back Exam Back Exam: absent: CVA tenderness (L), CVA tenderness (R) - Neurological Exam Neurological Exam: Alert, Awake, Oriented x3 - Psychiatric Exam Psychiatric exam: Normal Mood - Skin Skin Exam: Dry, Intact Assessment and Plan (1) Fever Status: Acute (2) H/O prostate biopsy Status: Acute (3) Abdominal pain, acute, left lower quadrant Status: Acute - Assessment and Plan (Free Text) Assessment: left kidney mass uti await cultures for biopsy
--- NOTE | 2017-03-02 23:33 | CARD ---
APPROVED REPORT EKG Measurement Heart [id number] <Conclusion> Normal sinus rhythm Right bundle branch block Abnormal ECG
[2017-03-03] MEDS: (Novolog) Insulin Aspart, Recombinant 100 u/ml 10 ml vial SC SCH ×3 (11:49→17:44)
[2017-03-03] MEDS: Pantoprazole 40 mg EC Tab PO SCH (12:04)
[2017-03-03] MEDS: DUTASTERIDE 0.5 MG PO SCH (12:22)
--- NOTE | 2017-03-03 12:29 | PN ---
DATE: 03/03/2017 FOLLOWUP NOTE DIAGNOSIS: Transient septicemia, status post MRI/ultrasound, TRUS PNBx done at the [facility] the day prior to admission. The patient is currently completely asymptomatic today, and he is afebrile, and they plan to discharg e the patient after being seen by ID - Dr. Huddleston. VITAL SIGNS: His temperature today is 97.6. His pulse rate is 69. His blood pressure is 116/58, an d his respirations are 18, and his O2 sat on room air is 95%. His urine and blood cultures showed no growth during the entire hospitalization, and his CBC was back down towards the normal range of around 12,000. His glucose today is 78. PHYSICAL EXAMINATION: On the patient today his abdomen is soft, not distended, no CVA tenderness. N o suprapubic tenderness. He is currently voiding mustapha urine well without any complaints. He has no dysuria, gross hematuria, renal colic, or abdominal pain. His biopsy again was positive for a [place] 6 (3+3) prostate cancer - somewhere between low risk and medium risk disease. The patient will be seen in office followup in 1 week to discuss further treatm ents. This case was completely discussed with Dr. Hong, and it is believed that this was just an episode o f transient septicemia post-TRUS PNBx. Efra Jha MD cc: [id number] TT: 03/03/2017 12:28:50 Confirmation # [id number] Dictation # [id number] andrea
--- NOTE | 2017-03-03 13:45 | CP.PCM.PN ---
Subjective - Date & Time of Evaluation Date of Evaluation: 03/03/17 Time of Evaluation: 09:45 - Subjective Subjective: PGY2 Medicine Note - Dr. Paulina Hong's service: Patient seen and examined at bedside this AM. Patient fully dressed and wanting to go home. Patient says he still sees some blood in his urine but that it is much improved from admission. Patient has no other complaints. Objective - Vital Signs/Intake and Output Vital Signs (last 24 hours): Temp Pulse Resp BP Pulse Ox 97.6 F 69 18 116/58 L 95 03/03/17 08:47 03/03/17 08:47 03/03/17 08:47 03/03/17 08:47 03/03/17 08:47 - Medications Medications: Current Medications Acetaminophen (Tylenol 325mg Tab) 650 mg PO Q6 PRN PRN Reason: Pain, moderate (4-7) Aspirin (Ecotrin) 81 mg PO DAILY [facility] Last Admin: 03/03/17 12:04 Dose: 81 mg Benzocaine/Menthol (Cepacol Sore Throat) 1 olesya MT Q6 PRN PRN Reason: Sore Throat Last Admin: 03/01/17 20:53 Dose: 1 olesya Home Med (Patient's Own Medication) 1 tab PO DAILY [facility] Last Admin: 03/03/17 12:22 Dose: 1 tab Insulin Aspart (Novolog) 0 unit SC QID [facility] PRN Reason: Protocol Last Admin: 03/03/17 11:49 Dose: Not Given Metoprolol Tartrate (Lopressor) 50 mg PO DAILY [facility] Last Admin: 03/03/17 12:04 Dose: 50 mg Pantoprazole Sodium (Protonix Ec Tab) 40 mg PO DAILY [facility] Last Admin: 03/03/17 12:04 Dose: 40 mg Rosuvastatin Calcium (Crestor) 10 mg PO HS [facility] Last Admin: 03/02/17 21:31 Dose: 10 mg - Labs Labs: 02/28/17 16:56 02/28/17 16:56 - Constitutional Appears: Non-toxic, No Acute Distress - Head Exam Head Exam: NORMAL INSPECTION - Eye Exam Eye Exam: EOMI - ENT Exam ENT Exam: Mucous Membranes Moist - Respiratory Exam Respiratory Exam: Clear to Ausculation Bilateral, NORMAL BREATHING PATTERN. absent: Rales, Rhonchi, Wheezes - Cardiovascular Exam Cardiovascular Exam: REGULAR RHYTHM, +S1, +S2. absent: Gallop, Rubs, Murmur - GI/Abdominal Exam GI & Abdominal Exam: Soft, Normal Bowel Sounds. absent: Tenderness - Extremities Exam Extremities Exam: absent: Pedal Edema - Neurological Exam Neurological Exam: Alert, Oriented x3 - Psychiatric Exam Psychiatric exam: Normal Affect, Normal Mood - Skin Skin Exam: Normal Color, Warm Assessment and Plan - Assessment and Plan (Free Text) Assessment: Prostate Cancer Urology consult - Dr. Jha- gena appreciated Patient diagnosed in the [facility] but did not have any records. Prostate biopsy recently came back positive for cancer per Dr. Jha Patient will need to make an appointment with Dr. Jha in one week Fever s/p prostate biopsy Unclear etiology ID consult - Dr. Huddletson - gena appreciated Afebrile since 02/28/17 Renal Mass Found on ultrasound For Abdominal CT with and without contrast today F/U Abdominal CT results outpatient with Dr. Jha H/O HTN Continue home meds: Lopressor 50mg PO BID H/O hyperlipidemia Crestor 10mg PO HS ASA 81mg PO daily Prophylaxis Protonix 40mg PO daily [facility]
[2017-03-03] MEDS ORDERED: Iodixanol 320 MG/ML 100 ML BOTTLE IV ONE (15:13)
[2017-03-03 16:52] VITALS: BP 123/63; PULSE 65; RESP 20; TEMP 97.5; O2SAT 98
--- NOTE | 2017-03-03 17:11 | CT ---
PROCEDURE: CT Abdomen with and without intravenous contrast HISTORY: evaluate L renal mass seen on ultrasound COMPARISON: Comparison is made to the previous study dated 06/25/2016 TECHNIQUE: Axial images of the abdomen from lung bases to iliac crest with and without intravenous contrast enhancement. Coronal and sagittal reformats generated. Oral contrast also administered. Intravenous contrast Dose: 100 mL Visipaque Radiation dose: Total exam DLP = 1182.59 mGy-cm. This CT exam was performed using one or more of the following dose reduction techniques: Automated exposure control, adjustment of the mA and/or kV according to patient size, and/or use of iterative reconstruction technique. FINDINGS: LOWER THORAX: Reticular opacities at the lung bases likely atelectasis. No evidence of pleural effusion. LIVER: No evidence of acute pathology or suspicious mass in the liver. The portal vein is patent. GALLBLADDER AND BILE DUCTS: Status post cholecystectomy. PANCREAS: Unremarkable. No gross lesion or ductal dilatation. SPLEEN: Unremarkable. ADRENALS: Unremarkable. No mass. KIDNEYS AND URETERS: Again seen is large cystic mass lesion at the mid to upper left kidney. No evidence of enhancing soft tissue mass in the left kidney. Also again seen is cystic lesion at the lower pole of the right kidney measures 4 centimeter. Mild bilateral perinephric stranding seen. VASCULATURE: Unremarkable. No aortic aneurysm. BOWEL: Unremarkable. No obstruction. No gross mural thickening. Colonic diverticulosis are seen without evidence of diverticulitis. APPENDIX: The appendix is grossly unremarkable. The appendix is not visualized PERITONEUM: Unremarkable. No free fluid. No free air. LYMPH NODES: Unremarkable. No enlarged lymph nodes. BLADDER: The bladder is not included in this study. REPRODUCTIVE: The pelvis is not included in this study. BONES: No acute fracture. OTHER FINDINGS: None. IMPRESSION: No evidence of solid enhancing mass lesion in the left kidney. Re- demonstration of bilateral renal cyst larger on the left. Colonic diverticulosis without evidence of diverticulitis. No evidence of acute pathology in the abdomen.
--- NOTE | 2017-03-03 17:29 | CP.PCM.PN ---
Subjective - Date & Time of Evaluation Date of Evaluation: 03/03/17 Time of Evaluation: 11:20 - Subjective Subjective: clinically same Objective - Vital Signs/Intake and Output Vital Signs (last 24 hours): Temp Pulse Resp BP Pulse Ox 97.5 F L 65 20 123/63 98 03/03/17 16:00 03/03/17 16:00 03/03/17 16:00 03/03/17 16:00 03/03/17 16:00 - Medications Medications: Current Medications Acetaminophen (Tylenol 325mg Tab) 650 mg PO Q6 PRN PRN Reason: Pain, moderate (4-7) Aspirin (Ecotrin) 81 mg PO DAILY [facility] Last Admin: 03/03/17 12:04 Dose: 81 mg Benzocaine/Menthol (Cepacol Sore Throat) 1 o[place]ya MT Q6 PRN PRN Reason: Sore Throat Last Admin: 03/01/17 20:53 Dose: 1 olesya Home Med (Patient's Own Medication) 1 tab PO DAILY [facility] Last Admin: 03/03/17 12:22 Dose: 1 tab Insulin Aspart (Novolog) 0 unit SC QID [facility] PRN Reason: Protocol Last Admin: 03/03/17 14:45 Dose: Not Given Metoprolol Tartrate (Lopressor) 50 mg PO BID [facility] Pantoprazole Sodium (Protonix Ec Tab) 40 mg PO DAILY [facility] Last Admin: 03/03/17 12:04 Dose: 40 mg Rosuvastatin Calcium (Crestor) 10 mg PO HS [facility] Last Admin: 03/02/17 21:31 Dose: 10 mg - Labs Labs: 02/28/17 16:56 02/28/17 16:56 - Constitutional Appears: Well - Head Exam Head Exam: ATRAUMATIC, NORMAL INSPECTION, NORMOCEPHALIC - Eye Exam Eye Exam: EOMI, Normal appearance, PERRL Pupil Exam: NORMAL ACCOMODATION, PERRL - ENT Exam ENT Exam: Mucous Membranes Moist, Normal Exam - Neck Exam Neck Exam: Full ROM, Normal Inspection. absent: Lymphadenopathy - Respiratory Exam Respiratory Exam: Decreased Breath Sounds - Cardiovascular Exam Cardiovascular Exam: REGULAR RHYTHM, +S1, +S2 - GI/Abdominal Exam GI & Abdominal Exam: Soft, Diminished Bowel Sounds - Rectal Exam Rectal Exam: Deferred Assessment and Plan (1) Abdominal pain, acute, left lower quadrant Status: Acute (2) Acute upper respiratory infection Status: Acute (3) Bronchitis Status: Acute (4) COPD exacerbation Status: Acute (5) Drainage of external ear Status: Acute (6) Dysphagia Status: Acute (7) Dyspnea Status: Acute (8) Fever Status: Acute (9) H/O prostate biopsy Status: Acute (10) Headache Status: Acute (11) Impacted cerumen Status: Acute (12) Otalgia Status: Acute (13) Pneumonia Status: Acute - Assessment and Plan (Free Text) Plan: Patient stable Continue aspirin Accu-Chek Discharge home Follow-up at office on Friday Follow-up with Dr. Jha with CT scan of abdomen result Return to emergency room if symptom recurs
--- NOTE | 2017-03-10 12:30 | PQF UROSEP ---
This form is a permanent part of the medical record Clarification of your documentation is requested to better reflect the severity of illness and intensity of treatment of your patient. PLEASE, CLARIFY IS SEPSIS WAS RULED IN OR RULED OUT PLEASE, CLARIFY POST OP FEVER Indicators present [X] Documentation of UROSEPSIS [X] Fever or hypothermia [] WBC count > 12,000/mm3 or <4000/mm3 or 10% immature neutrophils [] Hypotension [] Tachycardia [] Altered mental status/confusion [] + Urine/Blood Cultures [X] Other: [ S/P PROSTATE BX ON 02/25/17 [facility] CAME TO ED WITH FEVER 101 R/O UROSEPSIS , POST OP FEVER] Location in the medical record that reflects the above clinical findings: [] Treatment Provided: [ANTIBIOTICS] PHYSICIAN'S RESPONSE Based on your medical judgment of the clinical indicators outlined above, are you treating this patient for a known or suspected: [] Sepsis from a Urinary Source [] Localized Urinary Tract Infection - pyuria or bacteria in the urine [] Other, please indicate [] [] If unable to determine, please check the box, sign and date. Present On Admission (POA) Indicator: [] Present at the time of admission [] Not present at the time of admission [] Clinically Undetermined In responding to this query, please exercise your independent professional judgment. The fact that a question is asked does not imply that any particular answer is desired or expected. Thank you for your clarification on this documentation. If you have any questions please call:[[phone] ] * Thank you, [ Soco Morejon, CCS, [employer]] ski patroller DEANN
== END 2017-03-03 19:05 | disposition home or self-care (01) | DRG 864 ==
LOC: C.ER 21:55 → C.5T 23:53
PROVIDERS: ADMIT Internal Medicine Nephrology; ATTEND Internal Medicine Nephrology
DX: R50.82 Postprocedural fever (principal); E11.22 Type 2 diabetes mellitus with diabetic chronic kidney disease; N39.0 Urinary tract infection, site not specified; I12.9 Hypertensive chronic kidney disease with stage 1 through stage 4 chronic kidney disease, or unspecified chronic kidney disease; N40.0 Benign prostatic hyperplasia without lower urinary tract symptoms; R06.02 Shortness of breath; N18.9 Chronic kidney disease, unspecified; I25.10 Atherosclerotic heart disease of native coronary artery without angina pectoris; Z95.1 Presence of aortocoronary bypass graft; Z87.442 Personal history of urinary calculi; Z95.5 Presence of coronary angioplasty implant and graft; Z86.73 Personal history of transient ischemic attack (TIA), and cerebral infarction without residual deficits; Z90.49 Acquired absence of other specified parts of digestive tract

== ENCOUNTER 2017-03-09 03:07 | Inpatient (IN) | payer OTHER ==
--- NOTE | 2017-03-09 03:10 | C.PDOC ---
History Of Present Illness Patient presents to the ER with a complaint of SOB and a non productive cough that has worsened over the last few days. Denies chest pain, nausea, fever, or chills. Time Seen by Provider: 03/09/17 03:10 History Per: Patient History/Exam Limitations: no limitations Onset/Duration Of Symptoms: Days Current Symptoms Are (Timing): Still Present Severity: Moderate Pain Scale Rating Of: 4 Reports Recently: Seen In ED, Treated By A Physician, Hospitalized Recent travel outside of the [place]: No Additional History Per: Patient Past Medical History Reviewed: Historical Data, Nursing Documentation, Vital Signs Vital Signs: Last Vital Signs Temp 97.7 F 03/09/17 03:18 Pulse 65 03/09/17 03:55 Resp 18 03/09/17 03:55 BP 155/80 H 03/09/17 03:18 Pulse Ox 100 03/09/17 03:55 - Medical History PMH: Benign Prostatic Hyperplasia, CAD, Diabetes (Blood sugar 119), Diverticulitis, HTN, Hypercholesterolemia, Kidney Stones, Chronic Kidney Disease , TIA Surgical History: Cholecystectomy, Coronary Stent (2007) - [facility] Procedures CORONAR ARTERIOGR-2 CATH (05/06/14) ESOPHAGOGASTRODUODENOSCOPY [EGD] W/CLOSED BIOPSY (05/06/14) IRRIGATION OF EAR (02/13/14) LEFT HEART CARDIAC CATH (05/06/14) LT HEART ANGIOCARDIOGRAM (05/06/14) Family History: States: Unknown Family Hx - Social History Hx Tobacco Use: No Hx Alcohol Use: No Hx Substance Use: No - Immunization History Hx Tetanus Toxoid Vaccination: No Hx Influenza Vaccination: No Hx Pneumococcal Vaccination: No Review Of Systems Constitutional: Negative for: Fever, Chills Cardiovascular: Negative for: Chest Pain Respiratory: Positive for: Cough (Non productive), Shortness of Breath Gastrointestinal: Negative for: Nausea Physical Exam - Physical Exam Appears: Non-toxic Skin: Warm, Dry, Pale Head: Atraumatic Oral Mucosa: Moist Throat: No Erythema Neck: Supple Chest: Symmetrical, No Tenderness, Other (CABG scar) Cardiovascular: Rhythm Regular, No Murmur Respiratory: No Rales, Rhonchi (Bilateral at bases), No Wheezing Gastrointestinal/Abdominal: Soft, No Tenderness Back: Normal Inspection Extremity: Normal ROM Extremity: Bilateral: Atraumatic, Normal Color And Temperature, Normal ROM Neurological/Psych: Oriented x3, Normal Speech, Normal Cranial Nerves Gait: Steady ED Course And Treatment - Laboratory Results Result Diagrams: 03/09/17 03:34 03/09/17 03:34 ECG: Interpreted By Me, Viewed By Me ECG Rhythm: Sinus Rhythm (65), R BBB O2 Sat by Pulse Oximetry: 98 Pulse Ox Interpretation: Normal - Radiology CXR: Interpreted by Me, Viewed By Me CXR Interpretation: Yes: Other (mild vasc congestion, cabg, improved from ). No: Infiltrates, Fracture, Pnemothorax Progress Note: EKG, blood work, urinalysis, and CXR ordered. Nebulizer treatment administered. Disposition Discussed With Dr.: Juan Luis Hong Comment: accepted the pt on his service and took over the care at 5 AM Doctor Will See Patient In The: Hospital Counseled Patient/Family Regarding: Studies Performed, Diagnosis - Disposition Disposition: HOSPITALIZED Disposition Time: 03:10 Condition: FAIR - POA Present On Arrival: None - Clinical Impression Clinical Impression: Pneumonia, Dyspnea - Scribe Statement The provider has reviewed the documentation as recorded by the Scribchuck Jasso All medical record entries made by the Scribe were at my direction and personally dictated by me. I have reviewed the chart and agree that the record accurately reflects my personal performance of the history, physical exam, medical decision making, and the department course for this patient. I have also personally directed, reviewed, and agree with the discharge instructions and disposition. Decision To Admit - Pt Status Changed To: Hospital Disposition Of: Inpatient - Admit Certification Admit to Inpatient:: After my assessment, the patient will require hospitalization for at least two midnights. This is because of the severity of symptoms shown, intensity of services needed, and/or the medical risk in this patient being treated as an outpatient. - InPatient: Physician Admission Certification: I certify that this patient requires 2 or more midnights of care for the following reason:: After my assessment, the patient will require hospitalization for at least two midnights. This is because of the severity of symptoms shown, intensity of services needed, and/or the medical risk in this patient being treated as an outpatient. - . Bed Request Type: Regular Admitting Physician: Juan Luis Hong Patient Diagnosis: Pneumonia, Dyspnea
[2017-03-09 03:11] VITALS: BMI 37.8
[2017-03-09] MEDS: Albuterol-Ipratrop 3 mg / 0.5 (3 ml) UD IH SCH ×3 (03:30→04:17)
[2017-03-09 03:37] LABS: BASO # 0.1 K/uL (0.0-0.2); BASO % 0.9 % (0.0-2.0); EOS # 0.1 K/uL (0.0-0.7); EOS % 2.1 % (0.0-4.0); LYMPH # 1.7 K/uL (1.0-4.3); LYMPH % 31.3 % (20.0-40.0); MEAN CELL VOLUME 95.7 fL (80.0-94.0); MEAN CORPUSCULAR HEMOGLOBIN 31.8 pg (27.0-31.0); MEAN CORPUSCULAR HGB CONC 33.3 g/dL (33.0-37.0); MEAN PLATELET VOLUME 7.8 fL (7.2-11.7); MONO # 0.6 K/uL (0.0-0.8); MONO % 11.8 % (0.0-10.0); NRBC % 0.1 % (0.0-2.0); RED CELL DISTRIBUTION WIDTH 14.7 % (11.5-14.5); WHITE BLOOD COUNT 5.5 K/uL (4.8-10.8)
[2017-03-09] MEDS ORDERED: Albuterol-Ipratrop 3 mg / 0.5 (3 ml) UD ONE (03:42)
[2017-03-09 03:45] LABS: INR 0.9
[2017-03-09 03:46] LABS: CHLORIDE 105 mmol/L (98-107)
[2017-03-09 03:47] LABS: POTASSIUM 4.4 mmol/L (3.6-5.2); SODIUM 143 mmol/L (132-148)
[2017-03-09 03:49] LABS: ALB/GLOB RATIO 1.2 (1.0-2.1); ALKALINE PHOSPHATASE 129 U/L (38-126); ALT/SGPT 65 U/L (21-72); AST/SGOT 57 U/L (17-59); BLOOD UREA NITROGEN 17 mg/dL (9-20); CARBON DIOXIDE 24 mmol/L (22-30); GFR AFRICAN-AMERICAN > 60; TOTAL PROTEIN 7.1 g/dL (6.3-8.3)
[2017-03-09 03:50] LABS: CALCIUM 8.5 mg/dl (8.6-10.4); GLUCOSE,RANDOM 101 mg/dL (75-110)
[2017-03-09 04:08] LABS: VENOUS BLOOD GAS BASE EXCESS 0.5 mmol/L (0.0-2.0); VENOUS BLOOD GAS PCO2 50 mmHg (40-60); VENOUS BLOOD PH 7.34 (7.32-7.43)
[2017-03-09 04:51] LABS: RBC URINE 7 /hpf (0-3); URINE BILIRUBIN NEGATIVE (NEGATIVE); URINE COLOR Yellow (YELLOW); URINE GLUCOSE (UA) NORMAL (Normal); URINE KETONE NEGATIVE (NEGATIVE); URINE LEUKOCYTE ESTERASE NEG Leu/uL (Negative); URINE PROTEIN 2+ mg/dL (NEGATIVE); URINE UROBILINOGEN NORMAL mg/dL (0.2-1.0); WBC URINE 1 /hpf (0-5)
[2017-03-09] MEDS ORDERED: Piperacillin/Tazobact 3.375 gm 100 ML IVPB STA (04:56)
[2017-03-09] MEDS ORDERED: Piperacillin/Tazobact 3.375 gm 100 ML IVPB ONE (05:03)
[2017-03-09 05:06] LABS: URINE BLOOD 1+ (NEGATIVE)
--- NOTE | 2017-03-09 09:15 | RAD ---
HISTORY: SOB COMPARISON: Chest x-ray performed 02/25/17 TECHNIQUE: Chest, one view. FINDINGS: LUNGS: Mild bibasilar atelectasis. Right hilar prominence. Please note that chest x-ray has limited sensitivity for the detection of pulmonary masses. PLEURA: No significant pleural effusion identified. No definite pneumothorax . CARDIOVASCULAR: Median sternotomy wires with evidence of CABG. Borderline cardiomegaly. Atherosclerotic calcifications of the aorta. OSSEOUS STRUCTURES: No acute osseous abnormality identified. VISUALIZED UPPER ABDOMEN: Unremarkable. OTHER FINDINGS: None. IMPRESSION: Mild bibasilar atelectasis. Right hilar prominence.
[2017-03-09] MEDS ORDERED: Azithromycin 500mg/250ML NS 500 MG/250 ML BAG IVPB SCH (10:00)
[2017-03-09] MEDS ORDERED: Pantoprazole 40 mg EC Tab PO ONE (10:19)
[2017-03-09] MEDS ORDERED: Azithromycin 500mg/250ML NS 500 MG/250 ML BAG IVPB ONE (11:01)
[2017-03-09] MEDS: Piperacillin/Tazobact 3.375 GM in Sodium Chloride 100 ML IVPB SCH ×2 (14:40→17:17)
[2017-03-09] MEDS: Albuterol-Ipratrop 3 mg / 0.5 (3 ml) UD INH SCH (14:58)
--- NOTE | 2017-03-09 16:52 | CP.PCM.CON ---
History of Present Illness - History of Present Illness History of Present Illness: Patient presents to the ER with a complaint of SOB and a non productive cough that has worsened over the last few days. Denies chest pain, nausea, fever, or chills. - Medical History PMH: Benign Prostatic Hyperplasia, CAD, Diabetes (Blood sugar 119), Diverticulitis, HTN, Hypercholesterolemia, Kidney Stones, Chronic Kidney Disease , TIA Surgical History: Cholecystectomy, Coronary Stent (2007) Review of Systems - Constitutional Constitutional: As Per HPI - EENT Eyes: absent: As Per HPI, Blind Spots, Blurred Vision, Change in Vision, Decreased Night Vision, Diplopia, Discharge, Dry Eye, Exophthalmos, Floaters, Irritation, Itchy Eyes, Loss of Peripheral Vision, Pain, Photophobia, Requires Corrective Lenses, Sees Flashes, Spots in Vision, Tunnel Vision, Other Visual Disturbances, Loss of Vision, Other Ears: absent: As Per HPI, Decreased Hearing, Ear Discharge, Ear Pain, Tinnitus, Abnormal Hearing, Disequilibrium, Dizziness, Other Nose/Mouth/Throat: absent: As Per HPI, Epistaxis, Nasal Congestion, Nasal Discharge, Nasal Obstruction, Nasal Trauma, Nose Pain, Post Nasal Drip, Sinus Pain, Sinus Pressure, Bleeding Gums, Change in Voice, Dental Pain, Dry Mouth, Dysphagia, Halitosis, Hoarsness, Lip Swelling, Mouth Lesions, Mouth Pain, Odynophagia, Sore Throat, Throat Swelling, Tongue Swelling, Facial Pain, Neck Pain, Neck Mass, Other - Cardiovascular Cardiovascular: absent: As Per HPI, Acrocyanosis, Chest Pain, Chest Pain at Rest , Chest Pain with Activity, Claudication, Diaphoresis, Dyspnea, Dyspnea on Exertion, Edema, Irregular Heart Rhythm, Pain Radiating to Arm/Neck/Jaw, Leg Edema, Leg Ulcers, Lightheadedness, Orthopnea, Palpitations, Paroxysmal Nocturnal Dyspnea, Pedal Edema, Radiating Pain, Rapid Heart Rate, Slow Heart Rate, Syncope, Other - Respiratory Respiratory: As Per HPI - Gastrointestinal Gastrointestinal: absent: As Per HPI, Abdominal Pain, Belching, Bloating, Change in Bowel Habits, Change in Stool Character, Coffee Ground Emesis, Constipation, Cramping, Diarrhea, Dyspepsia, Dysphagia, Early Satiety, Excessive Flatus, Fecal Incontinence, Heartburn, Hematemesis, Hematochezia, Loose Stools, Melena, Nausea, Odynophagia, Temesmus, Vomiting, Other - Genitourinary Genitourinary: absent: As Per HPI, Change in Urinary Stream, Difficulty Urinating, Dysuria, Flank Pain, Hematuria, Pyuria, Nocturia, Urinary Incontinence, Urinary Frequency, Urinary Hesitance, Urinary Urgency, Voiding Freq/Small Amts, Freq UTI, Hx Renal/Bladder Calculi, Hx /Renal Surgery, Bladder Distension, Other - Musculoskeletal Musculoskeletal: absent: As Per HPI, Abnormal Gait, Arthralgias, Atrophy, Back Pain, Deformity, Joint Swelling, Limited Range of Motion, Loss of Height, Muscle Cramps, Muscle Weakness, Myalgias, Neck Pain, Numbness, Radiating Pain into Limb, Stiffness, Tingling, Other - Integumentary Integumentary: absent: As Per HPI, Acne, Alopecia, Bleeding Lesions, Change in Hair, Change in Nails, Change in Pigmentation, Changing Lesions, Dry Skin, Erythema, Furuncle, Hirsutism, Lesions, New Lesions, Non-Healing Lesions, Photosensitivity, Pruritus, Rash, Skin Pain, Skin Ulcer, Sores, Striae, Swelling , Unusual Bruising, Wounds, Jaundice, Other - Neurological Neurological: absent: As Per HPI, Abnormal Gait, Abnormal Hearing, Abnormal Movements, Abnormal Speech, Behavioral Changes, Burning Sensations, Confusion, Convulsions, Disequilibrium, Dizziness, Numbness, Focal Weakness, Frequent Falls , Headaches, Lack of Coordination, Loss of Vision, Memory Loss, Paresthesias, Radicular Pain, Restless Legs, Sensory Deficit, Syncope, Tingling, Tremor, Vertigo, Weakness, Other Visual Disturbances, Other - Psychiatric Psychiatric: absent: As Per HPI, Abnormal Sleep Pattern, Anhedonia, Anxiety, Auditory Hallucinations, Behavioral Changes, Change in Appetite, Change in Libido, Confusion, Depression, Difficulty Concentrating, Hallucinations, Homicidal Ideation, Hopelessness, Irritability, Memory Loss, Mood Swings, Panic Attacks, Paranoia, Suicidal Ideation, Visual Hallucinations, Tactile Hallucinations, Other - Endocrine Endocrine: absent: As Per HPI, Change in Body Appearance, Change in Libido, Cold Intolorance, Deepening of Voice, Excessive Sweating, Fatigue, Flushing, Heat Intolorance, Increase in Ring/Shoe/Hat Size, Palpitations, Polydipsia, Polyphagia, Polyuria, Other - Hematologic/Lymphatic Hematologic: absent: As Per HPI, Easy Bleeding, Easy Bruising, Lymphadenopathy, Other Past Patient History - Past Medical History & Family History Past Medical History?: Yes - Past Social History Smoking Status: Never Smoked - CARDIAC Hx Cardiac Disorders: Yes Hx Hypercholesterolemia: Yes Hx Hypertension: Yes - PULMONARY Hx Respiratory Disorders: Yes Hx Respiratory Tract Infection: Yes (UPPER) - NEUROLOGICAL Hx Neurological Disorder: Yes Hx Transient Ischemic Attacks (TIA): Yes - HEENT Hx HEENT Problems: Yes Other/Comment: impacted cerumen, otalgia - RENAL Hx Chronic Kidney Disease: Yes Hx Kidney Stones: Yes - ENDOCRINE/METABOLIC Hx Endocrine Disorders: Yes Hx Diabetes Mellitus Type 2: Yes - HEMATOLOGICAL/ONCOLOGICAL Hx Blood Disorders: No - INTEGUMENTARY Hx Dermatological Problems: No - MUSCULOSKELETAL/RHEUMATOLOGICAL Hx Musculoskeletal Disorders: No Hx Falls: No - GASTROINTESTINAL Hx Diverticulitis: Yes - GENITOURINARY/GYNECOLOGICAL Hx Genitourinary Disorders: Yes Hx Prostate Problems: Yes - PSYCHIATRIC Hx Psychophysiologic Disorder: No Hx Substance Use: No - SURGICAL HISTORY Hx Surgeries: Yes Hx Cholecystectomy: Yes Hx Coronary Stent: Yes (2007) - ANESTHESIA Hx Anesthesia: Yes Hx Anesthesia Reactions: No Hx Malignant Hyperthermia: No Has any member of the family had a problem w/ anesthesia?: No Meds Allergies/Adverse Reactions: Allergies Allergy/AdvReac Type Severity Reaction Status Date / Time clopidogrel bisulfate Allergy Mild ITCHING Verified 02/26/17 07:54 [From Plavix] moxifloxacin HCl Allergy Mild ITCHING Verified 02/26/17 07:54 [From Avelox] - Medications Medications: Current Medications Acetaminophen (Tylenol 325mg Tab) 650 mg PO Q6 PRN PRN Reason: Pain, moderate (4-7) Albuterol/Ipratropium (Duoneb 3 Mg/0.5 Mg (3 Ml) Ud) 3 ml INH RQ6 [facility] Last Admin: 03/09/17 14:58 Dose: 3 ml Aspirin (Ecotrin) 81 mg PO DAILY [facility] Last Admin: 03/09/17 10:57 Dose: 81 mg Finasteride (Proscar) 5 mg PO DAILY [facility] Last Admin: 03/09/17 11:05 Dose: 5 mg Piperacillin Sod/Tazobactam (Sod 3.375 gm/ Sodium Chloride) 100 mls @ 200 mls/ hr IVPB Q8H [facility] Last Admin: 03/09/17 14:40 Dose: Not Given Azithromycin (Zithromax 500mg In Ns Addvantage) 500 mg in 250 mls @ 167 mls/hr IVPB Q24H [facility] Last Admin: 03/09/17 11:21 Dose: 167 mls/hr Metoprolol Tartrate (Lopressor) 50 mg PO DAILY [facility] Last Admin: 03/09/17 10:57 Dose: 50 mg Pantoprazole Sodium (Protonix Ec Tab) 40 mg PO DAILY [facility] Rosuvastatin Calcium (Crestor) 10 mg PO HS [facility] Physical Exam - Constitutional Appears: Non-toxic, Chronically Ill - Head Exam Head Exam: NORMOCEPHALIC - Eye Exam Eye Exam: PERRL. absent: Scleral icterus - ENT Exam ENT Exam: Mucous Membranes Dry, Normal External Ear Exam - Neck Exam Neck exam: Negative for: Lymphadenopathy - Respiratory Exam Respiratory Exam: Decreased Breath Sounds, Rhonchi - Cardiovascular Exam Cardiovascular Exam: REGULAR RHYTHM, +S1, +S2 - GI/Abdominal Exam GI & Abdominal Exam: Diminished Bowel Sounds, Soft. absent: Organomegaly, Pulsatile Mass, Rebound, Rigid, Tenderness - Rectal Exam Rectal Exam: Deferred - Exam Exam: NORMAL INSPECTION - Extremities Exam Extremities exam: Positive for: pedal pulses present. Negative for: calf tenderness, pedal edema, tenderness - Back Exam Back exam: absent: CVA tenderness (L), CVA tenderness (R), paraspinal tenderness - Neurological Exam Neurological exam: Alert, CN II-XII Intact, Oriented x3, Reflexes Normal - Psychiatric Exam Psychiatric exam: Normal Mood Results - Vital Signs Recent Vital Signs: Last Vital Signs Temp 97.9 F 03/09/17 14:50 Pulse 65 03/09/17 14:59 Resp 18 03/09/17 14:50 BP 130/57 L 03/09/17 14:50 Pulse Ox 100 03/09/17 14:50 - Labs Result Diagrams: 03/09/17 03:34 03/09/17 03:34 Labs: Laboratory Results - last 24 hr 03/09/17 05:06 Urine Color Yellow Urine Clarity Clear Urine pH 5.0 Ur Specific [place] 1.019 Urine Protein 2+ H Urine Glucose (UA) Normal Urine Ketones Negative Urine Blood 1+ H Urine Nitrate Negative Urine Bilirubin Negative Urine Urobilinogen Normal Ur Leukocyte Esterase Neg Urine WBC (Auto) 1 Urine RBC (Auto) 7 H Ur Squamous Epith Cells < 1 Assessment & Plan (1) Dyspnea Status: Acute (2) Pneumonia Status: Acute (3) Abdominal pain, acute, left lower quadrant Status: Acute (4) Acute upper respiratory infection Status: Acute (5) Fever Status: Acute (6) H/O prostate biopsy Status: Acute - Assessment and Plan (Free Text) Assessment: check cultures blood urine sputum IV antibiotics
--- NOTE | 2017-03-09 19:19 | CP.PCM.PN ---
Subjective - Date & Time of Evaluation Date of Evaluation: 03/09/17 Time of Evaluation: 10:20 - Subjective Subjective: 81 years old male patient with past medical history of coronary artery disease s /p coronary stenting in 2007, diabetes hypertension hyperlipidemia chronic kidney disease TIA surgical history of cholecystectomy, now patient presented with complaint of shortness of breath and nonproductive cough that increased since last few days. No any fever nausea vomiting diarrhea, no chest pain palpitation leg swelling. Objective - Vital Signs/Intake and Output Vital Signs (last 24 hours): Temp Pulse Resp BP Pulse Ox 97.7 F 74 20 147/74 97 03/09/17 16:00 03/09/17 16:00 03/09/17 16:00 03/09/17 16:00 03/09/17 16:00 Intake and Output: 03/09/17 03/10/17 18:59 06:59 Intake Total 500 Output Total 850 Balance -350 - Medications Medications: Current Medications Acetaminophen (Tylenol 325mg Tab) 650 mg PO Q6 PRN PRN Reason: Pain, moderate (4-7) Albuterol/Ipratropium (Duoneb 3 Mg/0.5 Mg (3 Ml) Ud) 3 ml INH RQ6 [facility] Last Admin: 03/09/17 14:58 Dose: 3 ml Aspirin (Ecotrin) 81 mg PO DAILY [facility] Last Admin: 03/09/17 10:57 Dose: 81 mg Finasteride (Proscar) 5 mg PO DAILY [facility] Last Admin: 03/09/17 11:05 Dose: 5 mg Piperacillin Sod/Tazobactam (Sod 3.375 gm/ Sodium Chloride) 100 mls @ 200 mls/ hr IVPB Q8H [facility] Last Admin: 03/09/17 17:17 Dose: 200 mls/hr Azithromycin (Zithromax 500mg In Ns Addvantage) 500 mg in 250 mls @ 167 mls/hr IVPB Q24H [facility] Last Admin: 03/09/17 11:21 Dose: 167 mls/hr Metoprolol Tartrate (Lopressor) 50 mg PO DAILY [facility] Last Admin: 03/09/17 10:57 Dose: 50 mg Pantoprazole Sodium (Protonix Ec Tab) 40 mg PO DAILY [facility] Rosuvastatin Calcium (Crestor) 10 mg PO HS [facility] - Labs Labs: PT 10.2 SECONDS (9.7-12.2) 03/09/17 03:34 INR 0.9 03/09/17 03:34 APTT 29 SECONDS (21-34) 03/09/17 03:34 Assessment and Plan (1) Abdominal pain, acute, left lower quadrant Status: Acute (2) Acute upper respiratory infection Status: Acute (3) Bronchitis Status: Acute (4) COPD exacerbation Status: Acute (5) Drainage of external ear Status: Acute (6) Dysphagia Status: Acute (7) Dyspnea Status: Acute (8) Fever Status: Acute (9) H/O prostate biopsy Status: Acute (10) Headache Status: Acute (11) Impacted cerumen Status: Acute (12) Otalgia Status: Acute (13) Pneumonia Status: Acute - Assessment and Plan (Free Text) Plan: Blood workup and chest x-ray reviewed Pulmonary consult Maggie Payne Watch for breathlessness
--- NOTE | 2017-03-09 19:37 | CON ---
DATE: 03/09/2017 TIME OF CONSULTATION: Roughly 4:25 p.m. BRIEF HISTORY: The patient is an 81-year-old male from the [facility], who is status post a MRI/US TRUS-PNBx done with [facility] at the [facility] in [place] about 2 weeks ago and was admitted within 24 hours with a fever of unknown origin to [facility]. This was completely worked up and originally thought to be urosepsis, but all blood cultures, urine cultures were completely negative during that admission and the patient was eventually discharged home. The patient now is being readmitted with a history of hemoptysis, which he developed early this morning and associated with some difficulty breathing. The patient's pathology report was positive for Dashawn 6 ( 3+3) prostate cancer associated with some atypical cells and high grade PIN. This was consistent with a low to medium risk prostate cancer. The patient was advised of this pathology and will eventually undergo necessary treatment for this pathology. The patient is currently voiding mustapha urine well without any complaints. He never had any complaints with guarding his urine post the prostate biopsy. He currently denies any dysuria, gross hematuria, renal colic , or abdominal pain. PHYSICAL EXAMINATION: GENERAL: Alert, oriented. HEENT: Grossly within normal limits. NECK: Supple. Thyroid not palpable. ABDOMEN: Soft, not distended or tender. No CVA tenderness. No suprapubic tenderness. RECTAL: Normal rectal tone without fluctuance or masses. Prostate is average size, nontender without nodules or indurations with a palpable median sulcus. VITAL SIGNS: Today, his temperature is 97.6, pulse is 88, blood pressure is 148 /66 and respiratory rate is 25, O2 sat on room air was 100 and now is 95% on room air. LABORATORY EVALUATION: On 03/09/2017 shows a CBC with a WBC count of 5.5, hemoglobin of 13.3, hematocrit of 40.0 with a platelet count of 369,000. His coag profile shows a PT of 10.2, INR 0.9 and a PTT of 29. His sodium is 143, potassium 4.4, chloride of 105, CO2 of 24, BUN and creatinine 17 and 1.1 respectively with a GFR of greater than 60. Calcium is 8.5 and random glucose is 101. Total bilirubin 1.0, AST 57, ALT , alkaline phosphatase 129. Urinalysis: The color was yellow, clarity was clear, specific gravity 1.019, protein 2+, glucose normal, ketones negative, blood 1+. Nitrite, bilirubin and urobilinogen negative and normal respectively. Leukocyte esterase negative. One WBC, 7 RBCs per high power field. DIAGNOSTIC IMPRESSION: For this patient at this time is basically: 1. Prostate cancer, low to medium risk prostate cancer, Dashawn 6 (3+3). 2. Microscopic hematuria. 3. Post MRI/US TRUS-PNBx. PLAN: Regarding urology at this time is just observation. At this time, the patient will be seen in office followup within 2 weeks after his discharge from the hospital. Efra Jha MD cc: [id number] TT: 03/09/2017 19:37:34 Confirmation # [id number] Dictation # [id number] joyce [email or web address]
[2017-03-10] MEDS: Piperacillin/Tazobact 3.375 GM in Sodium Chloride 100 ML IVPB SCH ×3 (02:35→17:57)
[2017-03-10] MEDS: Albuterol-Ipratrop 3 mg / 0.5 (3 ml) UD INH SCH ×4 (03:20→20:15)
--- NOTE | 2017-03-10 10:35 | CP.PCM.CON ---
History of Present Illness - History of Present Illness History of Present Illness: CC: worsening cough HPI: 81 y/o Z[place]/male admitted with a few days progressive worsening of cough productive of whitish sputum initially then turning to blood-speck yellowish sputum. Pt denied fever or chills Review of Systems - Constitutional Constitutional: Anorexia, Lethargy, Malaise - EENT Eyes: absent: Blurred Vision, Change in Vision Ears: absent: Decreased Hearing, Ear Discharge, Tinnitus - Cardiovascular Cardiovascular: Dyspnea. absent: Chest Pain, Pedal Edema - Respiratory Respiratory: Cough, Dyspnea, Dyspnea on Exertion, Wheezing, Excessive Mucous Production, Pain with Coughing - Gastrointestinal Gastrointestinal: absent: Abdominal Pain, Diarrhea, Dysphagia - Musculoskeletal Musculoskeletal: Muscle Weakness - Neurological Neurological: absent: Disequilibrium, Dizziness, Frequent Falls, Headaches Past Patient History - Past Medical History & Family History Past Medical History?: Yes - Past Social History Smoking Status: Never Smoked - CARDIAC Hx Cardiac Disorders: Yes Hx Hypercholesterolemia: Yes Hx Hypertension: Yes - PULMONARY Hx Respiratory Disorders: Yes Hx Respiratory Tract Infection: Yes (UPPER) - NEUROLOGICAL Hx Neurological Disorder: Yes Hx Transient Ischemic Attacks (TIA): Yes - HEENT Hx HEENT Problems: Yes Other/Comment: impacted cerumen, otalgia - RENAL Hx Chronic Kidney Disease: Yes Hx Kidney Stones: Yes - ENDOCRINE/METABOLIC Hx Endocrine Disorders: Yes Hx Diabetes Mellitus Type 2: Yes - HEMATOLOGICAL/ONCOLOGICAL Hx Blood Disorders: No - INTEGUMENTARY Hx Dermatological Problems: No - MUSCULOSKELETAL/RHEUMATOLOGICAL Hx Musculoskeletal Disorders: No Hx Falls: No - GASTROINTESTINAL Hx Diverticulitis: Yes - GENITOURINARY/GYNECOLOGICAL Hx Genitourinary Disorders: Yes Hx Prostate Problems: Yes - PSYCHIATRIC Hx Psychophysiologic Disorder: No Hx Substance Use: No - SURGICAL HISTORY Hx Surgeries: Yes Hx Cholecystectomy: Yes Hx Coronary Stent: Yes (2007) - ANESTHESIA Hx Anesthesia: Yes Hx Anesthesia Reactions: No Hx Malignant Hyperthermia: No Has any member of the family had a problem w/ anesthesia?: No Meds Allergies/Adverse Reactions: Allergies Allergy/AdvReac Type Severity Reaction Status Date / Time clopidogrel bisulfate Allergy Mild ITCHING Verified 02/26/17 07:54 [From Plavix] moxifloxacin HCl Allergy Mild ITCHING Verified 02/26/17 07:54 [From Avelox] - Medications Medications: Current Medications Acetaminophen (Tylenol 325mg Tab) 650 mg PO Q6 PRN PRN Reason: Pain, moderate (4-7) Albuterol/Ipratropium (Duoneb 3 Mg/0.5 Mg (3 Ml) Ud) 3 ml INH RQ6 [facility] Last Admin: 03/10/17 09:52 Dose: 3 ml Aspirin (Ecotrin) 81 mg PO DAILY [facility] Last Admin: 03/09/17 10:57 Dose: 81 mg Finasteride (Proscar) 5 mg PO DAILY [facility] Last Admin: 03/09/17 11:05 Dose: 5 mg Piperacillin Sod/Tazobactam (Sod 3.375 gm/ Sodium Chloride) 100 mls @ 200 mls/ hr IVPB Q8H [facility] Last Admin: 03/10/17 02:35 Dose: 200 mls/hr Azithromycin 500 mg/ Sodium (Chloride) 250 mls @ 167 mls/hr IVPB DAILY [facility] Metoprolol Tartrate (Lopressor) 50 mg PO DAILY [facility] Last Admin: 03/09/17 10:57 Dose: 50 mg Pantoprazole Sodium (Protonix Ec Tab) 40 mg PO DAILY [facility] Rosuvastatin Calcium (Crestor) 10 mg PO HS [facility] Last Admin: 03/09/17 21:22 Dose: 10 mg Physical Exam - Constitutional Appears: Non-toxic, No Acute Distress - Head Exam Head Exam: NORMAL INSPECTION - Eye Exam Eye Exam: Periorbital swelling. absent: Scleral icterus - ENT Exam ENT Exam: Mucous Membranes Dry - Respiratory Exam Respiratory Exam: Decreased Breath Sounds - Cardiovascular Exam Cardiovascular Exam: REGULAR RHYTHM - GI/Abdominal Exam GI & Abdominal Exam: Normal Bowel Sounds, Soft. absent: Tenderness - Extremities Exam Extremities exam: Positive for: normal inspection. Negative for: pedal edema - Neurological Exam Neurological exam: CN II-XII Intact, Oriented x3 Results - Vital Signs Recent Vital Signs: Last Vital Signs Temp 98.0 F 03/10/17 07:00 Pulse 69 03/10/17 07:00 Resp 20 03/10/17 07:00 BP 134/64 03/10/17 07:00 Pulse Ox 97 03/10/17 07:00 - Labs Result Diagrams: 03/09/17 03:34 03/09/17 03:34 Labs: Laboratory Results - last 24 hr 03/10/17 06:32 POC Glucose (mg/dL) 96 Assessment & Plan - Assessment and Plan (Free Text) Assessment: CAD, stable Acute bronchitis r/o Atypical pneumonia Plan: Plan: Septic work-up Abtx as per Dr Huddleston Asa 81mgpo od Metoptolol 50mg mg po od Crestor 10mg po mod hs - Date & Time Date: 03/10/17 Time: 10:46
[2017-03-10] MEDS: Pantoprazole 40 mg EC Tab PO SCH (10:49)
[2017-03-10] MEDS: Azithromycin 500 MG in Sodium Chloride 0.9% 250 ML IVPB SCH (10:50)
[2017-03-10 13:05] LABS: BASO % 0.5 % (0.0-2.0); EOS # 0.2 K/uL (0.0-0.7); EOS % 2.5 % (0.0-4.0); LYMPH # 1.2 K/uL (1.0-4.3); MEAN CELL VOLUME 96.3 fL (80.0-94.0); MEAN CORPUSCULAR HEMOGLOBIN 32.3 pg (27.0-31.0); MEAN CORPUSCULAR HGB CONC 33.5 g/dL (33.0-37.0); MEAN PLATELET VOLUME 7.8 fL (7.2-11.7); MONO # 0.7 K/uL (0.0-0.8); MONO % 10.7 % (0.0-10.0); RED CELL DISTRIBUTION WIDTH 14.6 % (11.5-14.5); WHITE BLOOD COUNT 6.3 K/uL (4.8-10.8)
[2017-03-10 13:24] LABS: CHLORIDE 102 mmol/L (98-107); SODIUM 140 mmol/L (132-148)
[2017-03-10 13:26] LABS: ALB/GLOB RATIO 1.2 (1.0-2.1); ALKALINE PHOSPHATASE 85 U/L (38-126); AST/SGOT 47 U/L (17-59); CARBON DIOXIDE 23 mmol/L (22-30); GFR AFRICAN-AMERICAN > 60; TOTAL PROTEIN 6.6 g/dL (6.3-8.3)
[2017-03-10 13:27] LABS: ALT/SGPT 51 U/L (21-72); BLOOD UREA NITROGEN 12 mg/dL (9-20); CALCIUM 8.2 mg/dl (8.6-10.4); GLUCOSE,RANDOM 84 mg/dL (75-110)
--- NOTE | 2017-03-10 15:05 | CP.PCM.PN ---
Subjective - Date & Time of Evaluation Date of Evaluation: 03/10/17 Time of Evaluation: 10:10 - Subjective Subjective: PGY2 Medicine Note - Dr. Paulina Hong's service: Patient seen and examined at bedside this AM. Patient unaware of results of prostate biopsy despite discussing them with him at last visit. Patient reports shortness of breath and productive cough of white phlegm. Patient denies fever, chills, chest pain. Objective - Vital Signs/Intake and Output Vital Signs (last 24 hours): Temp Pulse Resp BP Pulse Ox 98.0 F 67 20 134/64 98 03/10/17 07:00 03/10/17 13:08 03/10/17 07:00 03/10/17 07:00 03/10/17 13:08 Intake and Output: 03/10/17 03/10/17 06:59 18:59 Intake Total 100 730 Balance 100 730 - Medications Medications: Current Medications Acetaminophen (Tylenol 325mg Tab) 650 mg PO Q6 PRN PRN Reason: Pain, moderate (4-7) Albuterol/Ipratropium (Duoneb 3 Mg/0.5 Mg (3 Ml) Ud) 3 ml INH RQ6 [facility] Last Admin: 03/10/17 14:10 Dose: 3 ml Aspirin (Ecotrin) 81 mg PO DAILY [facility] Last Admin: 03/10/17 13:28 Dose: Not Given Finasteride (Proscar) 5 mg PO DAILY [facility] Last Admin: 03/10/17 10:49 Dose: 5 mg Piperacillin Sod/Tazobactam (Sod 3.375 gm/ Sodium Chloride) 100 mls @ 200 mls/ hr IVPB Q8H [facility] Last Admin: 03/10/17 10:50 Dose: 200 mls/hr Azithromycin 500 mg/ Sodium (Chloride) 250 mls @ 167 mls/hr IVPB DAILY [facility] Last Admin: 03/10/17 10:50 Dose: 167 mls/hr Metoprolol Tartrate (Lopressor) 50 mg PO DAILY [facility] Last Admin: 03/10/17 10:49 Dose: 50 mg Pantoprazole Sodium (Protonix Ec Tab) 40 mg PO DAILY [facility] Last Admin: 03/10/17 10:49 Dose: 40 mg Rosuvastatin Calcium (Crestor) 10 mg PO HS [facility] Last Admin: 03/09/17 21:22 Dose: 10 mg - Labs Labs: 03/10/17 12:53 03/10/17 12:53 PT 10.2 SECONDS (9.7-12.2) 03/09/17 03:34 INR 0.9 03/09/17 03:34 APTT 29 SECONDS (21-34) 03/09/17 03:34 - Constitutional Appears: Non-toxic, No Acute Distress - Eye Exam Eye Exam: EOMI - ENT Exam ENT Exam: Mucous Membranes Moist - Respiratory Exam Respiratory Exam: Rhonchi, NORMAL BREATHING PATTERN. absent: Accessory Muscle Use, Respiratory Distress - Cardiovascular Exam Cardiovascular Exam: REGULAR RHYTHM, +S1, +S2 - GI/Abdominal Exam GI & Abdominal Exam: Soft, Normal Bowel Sounds. absent: Tenderness - Extremities Exam Extremities Exam: absent: Pedal Edema - Neurological Exam Neurological Exam: Alert, Awake, Oriented x3 - Psychiatric Exam Psychiatric exam: Normal Affect, Normal Mood - Skin Skin Exam: Normal Color, Warm Assessment and Plan - Assessment and Plan (Free Text) Assessment: Prostate Cancer Urology consult - Dr. Jha- help appreciated Patient diagnosed in the [facility] but did not have any records. Prostate biopsy recently came back positive for cancer per Dr. Jha Patient will need to make an appointment with Dr. Jha in one week Pneumonia CXR - mild bibasilar atelectasis with right hilar prominence (please see full report) Zithromax 500mg IVPB daily Zosyn 3.375gm IVPB Q8 ID consult - Dr. Huddleston - help appreciated Afebrile this admission Blood Cx negative x 24 hours WBC normal Renal Mass Found on ultrasound Abdominal CT with and without contrast - no evidence of solid enhancing mass lesion in the left kidney. Re-demonstration of bilateral renal cyst larger on the left. Colonic diverticulosis without evidence of diverticulitis. No evidence of acute pathology in the abdomen. (please see full report) H/O HTN Continue home meds: Lopressor 50mg PO BID H/O hyperlipidemia Crestor 10mg PO HS ASA 81mg PO daily Prophylaxis Protonix 40mg PO daily [facility]
--- NOTE | 2017-03-10 18:34 | CP.PCM.PN ---
Subjective - Date & Time of Evaluation Date of Evaluation: 03/10/17 Time of Evaluation: 09:40 - Subjective Subjective: clinically same Objective - Vital Signs/Intake and Output Vital Signs (last 24 hours): Temp Pulse Resp BP Pulse Ox 98.2 F 69 19 117/67 96 03/10/17 18:11 03/10/17 18:11 03/10/17 18:11 03/10/17 18:11 03/10/17 18:11 Intake and Output: 03/10/17 03/10/17 06:59 18:59 Intake Total 100 830 Balance 100 830 - Medications Medications: Current Medications Acetaminophen (Tylenol 325mg Tab) 650 mg PO Q6 PRN PRN Reason: Pain, moderate (4-7) Albuterol/Ipratropium (Duoneb 3 Mg/0.5 Mg (3 Ml) Ud) 3 ml INH RQ6 [facility] Last Admin: 03/10/17 14:10 Dose: 3 ml Aspirin (Ecotrin) 81 mg PO DAILY [facility] Last Admin: 03/10/17 13:28 Dose: Not Given Finasteride (Proscar) 5 mg PO DAILY [facility] Last Admin: 03/10/17 10:49 Dose: 5 mg Piperacillin Sod/Tazobactam (Sod 3.375 gm/ Sodium Chloride) 100 mls @ 200 mls/ hr IVPB Q8H [facility] Last Admin: 03/10/17 17:57 Dose: 200 mls/hr Azithromycin 500 mg/ Sodium (Chloride) 250 mls @ 167 mls/hr IVPB DAILY [facility] Last Admin: 03/10/17 10:50 Dose: 167 mls/hr Metoprolol Tartrate (Lopressor) 50 mg PO DAILY [facility] Last Admin: 03/10/17 10:49 Dose: 50 mg Pantoprazole Sodium (Protonix Ec Tab) 40 mg PO DAILY [facility] Last Admin: 03/10/17 10:49 Dose: 40 mg Rosuvastatin Calcium (Crestor) 10 mg PO HS [facility] Last Admin: 03/09/17 21:22 Dose: 10 mg - Labs Labs: 03/10/17 12:53 03/10/17 12:53 PT 10.2 SECONDS (9.7-12.2) 03/09/17 03:34 INR 0.9 03/09/17 03:34 APTT 29 SECONDS (21-34) 03/09/17 03:34 - Constitutional Appears: Well - Head Exam Head Exam: ATRAUMATIC, NORMAL INSPECTION, NORMOCEPHALIC - Eye Exam Eye Exam: EOMI, Normal appearance, PERRL Pupil Exam: NORMAL ACCOMODATION, PERRL - ENT Exam ENT Exam: Mucous Membranes Moist, Normal Exam - Neck Exam Neck Exam: Full ROM, Normal Inspection. absent: Lymphadenopathy - Respiratory Exam Respiratory Exam: Decreased Breath Sounds - Cardiovascular Exam Cardiovascular Exam: REGULAR RHYTHM, +S1, +S2 - GI/Abdominal Exam GI & Abdominal Exam: Soft, Diminished Bowel Sounds - Rectal Exam Rectal Exam: Deferred Assessment and Plan (1) Abdominal pain, acute, left lower quadrant Status: Acute (2) Acute upper respiratory infection Status: Acute (3) Bronchitis Status: Acute (4) COPD exacerbation Status: Acute (5) Drainage of external ear Status: Acute (6) Dysphagia Status: Acute (7) Dyspnea Status: Acute (8) Fever Status: Acute (9) H/O prostate biopsy Status: Acute (10) Headache Status: Acute (11) Impacted cerumen Status: Acute (12) Otalgia Status: Acute (13) Pneumonia Status: Acute - Assessment and Plan (Free Text) Plan: Continue Zosyn Zithromax Watch for breathlessness Lopressor DuoNeb Labs next a.m. Cardio consult ID consult Pulmonary consult
[2017-03-11] MEDS: Piperacillin/Tazobact 3.375 GM in Sodium Chloride 100 ML IVPB SCH ×3 (01:54→17:36)
[2017-03-11] MEDS: Albuterol-Ipratrop 3 mg / 0.5 (3 ml) UD INH SCH ×4 (02:16→20:06)
[2017-03-11 07:42] LABS: BASO % 0.5 % (0.0-2.0); EOS # 0.2 K/uL (0.0-0.7); HEMATOCRIT 36.7 % (35.0-51.0); LYMPH # 1.6 K/uL (1.0-4.3); LYMPH % 23.3 % (20.0-40.0); MEAN CELL VOLUME 95.3 fL (80.0-94.0); MEAN CORPUSCULAR HEMOGLOBIN 32.3 pg (27.0-31.0); MEAN CORPUSCULAR HGB CONC 33.9 g/dL (33.0-37.0); MEAN PLATELET VOLUME 7.5 fL (7.2-11.7); MONO # 0.8 K/uL (0.0-0.8); MONO % 11.7 % (0.0-10.0); RED CELL DISTRIBUTION WIDTH 14.5 % (11.5-14.5); WHITE BLOOD COUNT 6.7 K/uL (4.8-10.8)
[2017-03-11 07:43] LABS: CHLORIDE 103 mmol/L (98-107); SODIUM 139 mmol/L (132-148)
[2017-03-11 07:44] LABS: POTASSIUM 4.1 mmol/L (3.6-5.2)
[2017-03-11 07:45] LABS: GFR AFRICAN-AMERICAN > 60
[2017-03-11 07:46] LABS: ALB/GLOB RATIO 1.2 (1.0-2.1); ALKALINE PHOSPHATASE 73 U/L (38-126); ALT/SGPT 48 U/L (21-72); AST/SGOT 37 U/L (17-59); BILIRUBIN,TOTAL 1.1 mg/dL (0.2-1.3); BLOOD UREA NITROGEN 12 mg/dL (9-20); CARBON DIOXIDE 25 mmol/L (22-30); GLUCOSE,RANDOM 90 mg/dL (75-110); TOTAL PROTEIN 6.7 g/dL (6.3-8.3)
[2017-03-11 07:47] LABS: CALCIUM 8.3 mg/dl (8.6-10.4)
[2017-03-11] MEDS: Pantoprazole 40 mg EC Tab PO SCH (10:04)
[2017-03-11] MEDS: Azithromycin 500 MG in Sodium Chloride 0.9% 250 ML IVPB SCH (10:04)
--- NOTE | 2017-03-11 10:43 | PN ---
DATE: 03/11/2017 TIME OF FOLLOWUP: Roughly around 10:28 a.m. The patient is currently resting comfortably. He seems to be breathing okay with nasal O2 and he is voiding mustapha urine well and his only complaint is that he is voiding mustapha urine frequently because of his intravenous fluid intake. He denies any type of dysuria, gross hematuria, renal colic, or abd ominal pain. PHYSICAL EXAMINATION: VITAL SIGNS: Today 03/11/2017, temperature is 98.0, pulse is 63, blood pressure 122/68. Respirations 20 and his O2 sat on room air is 98%. LABORATORY DATA: His last on 03/11/2017 shows a CBC with a WBC count of 6.7, hemoglobin of 12.4, hemat ocrit 36.7 and a platelet count of 387,000. His chem profile shows a sodium of 139, potassium 4.1, c hloride 103, CO2 25, BUN and creatinine of 12 and 1.1, respectively with GFR of greater than 60. Ran dom glucose is 90. Calcium 8.3. Otherwise, a normal comprehensive metabolic profile. The patient is currently being treated for a pneumonia. The patient advised to make an appointment a week after he is discharged from the hospital for evaluation and discussion of treatment for his new diagnosis of prostate cancer. Efra Jha MD cc: [id number] TT: 03/11/2017 10:42:28 Confirmation # [id number] Dictation # [id number]
--- NOTE | 2017-03-11 11:08 | CP.PCM.PN ---
Subjective - Date & Time of Evaluation Date of Evaluation: 03/11/17 Time of Evaluation: 09:00 - Subjective Subjective: PGY2 Medicine Note - Dr. Paulina Hong's service: Patient seen and examined at bedside this AM. Patient reports right upper chest pain/ Patient reports productive cough of white phlegm. Patient denies fever, chills, SOB. Objective - Vital Signs/Intake and Output Vital Signs (last 24 hours): Temp Pulse Resp BP Pulse Ox 98.0 F 63 20 122/68 98 03/11/17 07:28 03/11/17 07:28 03/11/17 07:28 03/11/17 07:28 03/11/17 07:28 Intake and Output: 03/11/17 03/11/17 06:59 18:59 Intake Total 100 Balance 100 - Medications Medications: Current Medications Acetaminophen (Tylenol 325mg Tab) 650 mg PO Q6 PRN PRN Reason: Pain, moderate (4-7) Albuterol/Ipratropium (Duoneb 3 Mg/0.5 Mg (3 Ml) Ud) 3 ml INH RQ6 [facility] Last Admin: 03/11/17 09:00 Dose: Not Given Aspirin (Ecotrin) 81 mg PO DAILY [facility] Last Admin: 03/10/17 13:28 Dose: Not Given Finasteride (Proscar) 5 mg PO DAILY [facility] Last Admin: 03/11/17 10:05 Dose: 5 mg Piperacillin Sod/Tazobactam (Sod 3.375 gm/ Sodium Chloride) 100 mls @ 200 mls/ hr IVPB Q8H [facility] Last Admin: 03/11/17 10:04 Dose: 200 mls/hr Azithromycin 500 mg/ Sodium (Chloride) 250 mls @ 167 mls/hr IVPB DAILY [facility] Last Admin: 03/11/17 10:04 Dose: 167 mls/hr Metoprolol Tartrate (Lopressor) 50 mg PO DAILY [facility] Last Admin: 03/11/17 10:05 Dose: 50 mg Pantoprazole Sodium (Protonix Ec Tab) 40 mg PO DAILY [facility] Last Admin: 03/11/17 10:04 Dose: 40 mg Rosuvastatin Calcium (Crestor) 10 mg PO HS [facility] Last Admin: 03/10/17 21:37 Dose: 10 mg - Labs Labs: 03/11/17 07:28 03/11/17 07:28 PT 10.2 SECONDS (9.7-12.2) 03/09/17 03:34 INR 0.9 03/09/17 03:34 APTT 29 SECONDS (21-34) 03/09/17 03:34 - Constitutional Appears: Non-toxic, No Acute Distress - Head Exam Head Exam: NORMAL INSPECTION - Eye Exam Eye Exam: EOMI - ENT Exam ENT Exam: Mucous Membranes Moist - Respiratory Exam Respiratory Exam: Rhonchi, NORMAL BREATHING PATTERN. absent: Accessory Muscle Use, Respiratory Distress - Cardiovascular Exam Cardiovascular Exam: REGULAR RHYTHM, +S1, +S2. absent: Gallop, Rubs, Murmur - GI/Abdominal Exam GI & Abdominal Exam: Soft, Normal Bowel Sounds. absent: Tenderness - Extremities Exam Extremities Exam: Normal Capillary Refill. absent: Pedal Edema - Neurological Exam Neurological Exam: Alert, Awake - Psychiatric Exam Psychiatric exam: Normal Affect, Normal Mood - Skin Skin Exam: Normal Color, Warm Assessment and Plan - Assessment and Plan (Free Text) Assessment: Prostate Cancer Urology consult - Dr. Jha- help appreciated Patient diagnosed in the [facility] but did not have any records. Prostate biopsy recently came back positive for cancer per Dr. Jha Renal mass also found on last hospital visit Patient will need to make an appointment with Dr. Jha in one week Pneumonia CXR - mild bibasilar atelectasis with right hilar prominence (please see full report) Zithromax 500mg IVPB daily Zosyn 3.375gm IVPB Q8 ID consult - Dr. Huddleston - gena appreciated Afebrile this admission Blood Cx negative x 24 hours WBC normal Likely D/C home with PO ABX - will discuss with Dr. Paulina Hong Right upper chest pain Will consider Chest CT - discuss with Dr. Paulnia Hong Renal Mass Found on ultrasound Abdominal CT with and without contrast - no evidence of solid enhancing mass lesion in the left kidney. Re-demonstration of bilateral renal cyst larger on the left. Colonic diverticulosis without evidence of diverticulitis. No evidence of acute pathology in the abdomen. (please see full report) H/O HTN Continue home meds: Lopressor 50mg PO BID H/O hyperlipidemia Crestor 10mg PO HS ASA 81mg PO daily Prophylaxis Protonix 40mg PO daily [facility]
--- NOTE | 2017-03-11 14:07 | CARD ---
APPROVED REPORT EKG Measurement Heart [id number] CA [id number] <Conclusion> Normal sinus rhythm Right bundle branch block Abnormal ECG
[2017-03-11] MEDS ORDERED: Iodixanol 320 MG/ML 100 ML BOTTLE IV ONE (14:18)
--- NOTE | 2017-03-11 15:37 | CT ---
CT chest with IV contrast Indication: rule out PE, upper right sided chest pain, r/o met Technique: Contiguous axial images were obtained through the chest with intravenous contrast enhancement. Sagittal and coronal reconstructions were generated and reviewed. This CT exam was performed using 1 or more of the falling dose reduction techniques: Automated exposure control, adjustment of the MAA and/or kV according to patient size, and/or use of iterative reconstruction technique. IV Contrast: 100 cc Visipaque 320 Radiation dose (DLP): 274.97 MGy-cm. Comparison: Chest x-ray performed 03/09/17 Findings: Visualized portions of the inferior thyroid gland appear unremarkable. 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 The unenhanced mediastinal vascular structures appear otherwise unremarkable. Cardiomegaly. Dense coronary artery calcifications. No large central or segmental pulmonary embolus evident. Bibasilar atelectasis favored over pneumonia. No pneumothorax. Trace pleural effusions. Limited visualization of the noncontrast upper abdomen reveals cholecystectomy clips. 5.1 cm cystic structure in the left upper quadrant, possibly arising from the kidney which is not imaged. Bilateral gynecomastia. Median sternotomy wires. Osseous demineralization. Multilevel degenerative changes. Mild kyphosis. Impression: No large central or segmental pulmonary embolus evident. Bibasilar atelectasis favored over pneumonia. Trace pleural effusions. 5.1 cm cystic structure in the left upper quadrant, possibly arising from the kidney which is not imaged. Additional findings as above.
--- NOTE | 2017-03-11 16:44 | CP.PCM.PN ---
Subjective - Date & Time of Evaluation Date of Evaluation: 03/11/17 Time of Evaluation: 10:40 - Subjective Subjective: clinically same Objective - Vital Signs/Intake and Output Vital Signs (last 24 hours): Temp Pulse Resp BP Pulse Ox 98.5 F 60 20 128/71 98 03/11/17 15:38 03/11/17 15:38 03/11/17 15:38 03/11/17 15:38 03/11/17 15:38 Intake and Output: 03/11/17 03/11/17 06:59 18:59 Intake Total 100 830 Balance 100 830 - Medications Medications: Current Medications Acetaminophen (Tylenol 325mg Tab) 650 mg PO Q6 PRN PRN Reason: Pain, moderate (4-7) Albuterol/Ipratropium (Duoneb 3 Mg/0.5 Mg (3 Ml) Ud) 3 ml INH RQ6 [facility] Last Admin: 03/11/17 14:00 Dose: 3 ml Aspirin (Ecotrin) 81 mg PO DAILY [facility] Last Admin: 03/10/17 13:28 Dose: Not Given Finasteride (Proscar) 5 mg PO DAILY [facility] Last Admin: 03/11/17 10:05 Dose: 5 mg Piperacillin Sod/Tazobactam (Sod 3.375 gm/ Sodium Chloride) 100 mls @ 200 mls/ hr IVPB Q8H [facility] Last Admin: 03/11/17 10:04 Dose: 200 mls/hr Azithromycin 500 mg/ Sodium (Chloride) 250 mls @ 167 mls/hr IVPB DAILY [facility] Last Admin: 03/11/17 10:04 Dose: 167 mls/hr Metoprolol Tartrate (Lopressor) 50 mg PO DAILY [facility] Last Admin: 03/11/17 10:05 Dose: 50 mg Pantoprazole Sodium (Protonix Ec Tab) 40 mg PO DAILY [facility] Last Admin: 03/11/17 10:04 Dose: 40 mg Rosuvastatin Calcium (Crestor) 10 mg PO HS [facility] Last Admin: 03/10/17 21:37 Dose: 10 mg - Labs Labs: 03/11/17 07:28 03/11/17 07:28 PT 10.2 SECONDS (9.7-12.2) 03/09/17 03:34 INR 0.9 03/09/17 03:34 APTT 29 SECONDS (21-34) 03/09/17 03:34 - Constitutional Appears: Well - Head Exam Head Exam: ATRAUMATIC - Eye Exam Eye Exam: EOMI, Normal appearance, PERRL Pupil Exam: NORMAL ACCOMODATION, PERRL - ENT Exam ENT Exam: Mucous Membranes Moist, Normal Exam - Neck Exam Neck Exam: Full ROM, Normal Inspection. absent: Lymphadenopathy - Respiratory Exam Respiratory Exam: Decreased Breath Sounds - Cardiovascular Exam Cardiovascular Exam: REGULAR RHYTHM, +S1, +S2 - GI/Abdominal Exam GI & Abdominal Exam: Soft, Diminished Bowel Sounds - Rectal Exam Rectal Exam: Deferred Assessment and Plan (1) Abdominal pain, acute, left lower quadrant Status: Acute (2) Acute upper respiratory infection Status: Acute (3) Bronchitis Status: Acute (4) COPD exacerbation Status: Acute (5) Drainage of external ear Status: Acute (6) Dysphagia Status: Acute (7) Dyspnea Status: Acute (8) Fever Status: Acute (9) H/O prostate biopsy Status: Acute (10) Headache Status: Acute (11) Impacted cerumen Status: Acute (12) Otalgia Status: Acute (13) Pneumonia Status: Acute - Assessment and Plan (Free Text) Plan: Labs reviewed ID consult Neurology consult Continue antibiotics DVT prophylaxis Awaiting culture reports
[2017-03-12] MEDS: Albuterol-Ipratrop 3 mg / 0.5 (3 ml) UD INH SCH ×4 (01:28→19:43)
[2017-03-12] MEDS: Piperacillin/Tazobact 3.375 GM in Sodium Chloride 100 ML IVPB SCH ×3 (01:34→17:34)
[2017-03-12 07:39] LABS: BASO % 0.6 % (0.0-2.0); EOS # 0.2 K/uL (0.0-0.7); EOS % 2.7 % (0.0-4.0); HEMATOCRIT 41.5 % (35.0-51.0); LYMPH # 1.5 K/uL (1.0-4.3); LYMPH % 22.4 % (20.0-40.0); MEAN CELL VOLUME 95.9 fL (80.0-94.0); MEAN CORPUSCULAR HEMOGLOBIN 31.5 pg (27.0-31.0); MEAN CORPUSCULAR HGB CONC 32.9 g/dL (33.0-37.0); MEAN PLATELET VOLUME 7.6 fL (7.2-11.7); MONO # 0.8 K/uL (0.0-0.8); RED CELL DISTRIBUTION WIDTH 14.1 % (11.5-14.5); WHITE BLOOD COUNT 6.8 K/uL (4.8-10.8)
[2017-03-12 08:01] LABS: CHLORIDE 103 mmol/L (98-107); POTASSIUM 4.3 mmol/L (3.6-5.2); SODIUM 139 mmol/L (132-148)
[2017-03-12 08:03] LABS: BILIRUBIN,TOTAL 1.2 mg/dL (0.2-1.3); GFR AFRICAN-AMERICAN > 60
[2017-03-12 08:04] LABS: ALB/GLOB RATIO 1.2 (1.0-2.1); ALKALINE PHOSPHATASE 70 U/L (38-126); ALT/SGPT 43 U/L (21-72); AST/SGOT 30 U/L (17-59); BLOOD UREA NITROGEN 12 mg/dL (9-20); CARBON DIOXIDE 26 mmol/L (22-30); GLUCOSE,RANDOM 86 mg/dL (75-110)
[2017-03-12 08:05] LABS: CALCIUM 8.4 mg/dl (8.6-10.4)
[2017-03-12] MEDS: Azithromycin 500 MG in Sodium Chloride 0.9% 250 ML IVPB SCH (10:25)
[2017-03-12] MEDS: Pantoprazole 40 mg EC Tab PO SCH (10:25)
--- NOTE | 2017-03-12 10:28 | CP.PCM.PN ---
Subjective - Date & Time of Evaluation Date of Evaluation: 03/12/17 Time of Evaluation: 07:30 - Subjective Subjective: PGY2 Medicine Note - Dr. Paulina Hong's service: Patient seen and examined at bedside this AM. Patient reports feeling weak. Patient says breathing has improved but he is still coughing up white phlegm. Objective - Vital Signs/Intake and Output Vital Signs (last 24 hours): Temp Pulse Resp BP Pulse Ox 97.7 F 73 20 133/76 98 03/12/17 10:24 03/12/17 10:24 03/12/17 10:24 03/12/17 10:24 03/12/17 10:24 Intake and Output: 03/12/17 03/12/17 06:59 18:59 Intake Total 200 Balance 200 - Medications Medications: Current Medications Acetaminophen (Tylenol 325mg Tab) 650 mg PO Q6 PRN PRN Reason: Pain, moderate (4-7) Albuterol/Ipratropium (Duoneb 3 Mg/0.5 Mg (3 Ml) Ud) 3 ml INH RQ6 [facility] Last Admin: 03/12/17 07:34 Dose: 3 ml Aspirin (Ecotrin) 81 mg PO DAILY [facility] Last Admin: 03/10/17 13:28 Dose: Not Given Finasteride (Proscar) 5 mg PO DAILY [facility] Last Admin: 03/11/17 10:05 Dose: 5 mg Piperacillin Sod/Tazobactam (Sod 3.375 gm/ Sodium Chloride) 100 mls @ 200 mls/ hr IVPB Q8H [facility] Last Admin: 03/12/17 01:34 Dose: 200 mls/hr Azithromycin 500 mg/ Sodium (Chloride) 250 mls @ 167 mls/hr IVPB DAILY [facility] Last Admin: 03/11/17 10:04 Dose: 167 mls/hr Metoprolol Tartrate (Lopressor) 50 mg PO DAILY [facility] Last Admin: 03/11/17 10:05 Dose: 50 mg Pantoprazole Sodium (Protonix Ec Tab) 40 mg PO DAILY [facility] Last Admin: 03/11/17 10:04 Dose: 40 mg Rosuvastatin Calcium (Crestor) 10 mg PO HS [facility] Last Admin: 03/11/17 21:27 Dose: 10 mg - Labs Labs: 03/12/17 07:32 03/12/17 07:32 PT 10.2 SECONDS (9.7-12.2) 03/09/17 03:34 INR 0.9 03/09/17 03:34 APTT 29 SECONDS (21-34) 03/09/17 03:34 - Constitutional Appears: Non-toxic, No Acute Distress - Head Exam Head Exam: NORMAL INSPECTION - Eye Exam Eye Exam: EOMI - ENT Exam ENT Exam: Mucous Membranes Moist - Respiratory Exam Respiratory Exam: Rhonchi. absent: Accessory Muscle Use, Respiratory Distress - Cardiovascular Exam Cardiovascular Exam: REGULAR RHYTHM, +S1, +S2. absent: Gallop, Rubs, Murmur - GI/Abdominal Exam GI & Abdominal Exam: Soft, Normal Bowel Sounds. absent: Tenderness - Extremities Exam Extremities Exam: absent: Pedal Edema - Neurological Exam Neurological Exam: Alert, Oriented x3 - Psychiatric Exam Psychiatric exam: Normal Affect - Skin Skin Exam: Normal Color, Warm Assessment and Plan - Assessment and Plan (Free Text) Assessment: Prostate Cancer Urology consult - Dr. Jha- help appreciated Patient diagnosed in the [facility] but did not have any records. Prostate biopsy recently came back positive for cancer per Dr. Jha Renal mass also found on last hospital visit Patient will need to make an appointment with Dr. Jha in one week Pneumonia CXR - mild bibasilar atelectasis with right hilar prominence (please see full report) CTA 03/11/17 - 5.1cm cystic structure LUQ possibly extending from kidney. No evidence of PE. Bibasilar atelectasis and trace effusions. F/U sputum culture Blood Cx negative x 48 hours Zithromax 500mg IVPB daily Zosyn 3.375gm IVPB Q8 ID consult - Dr. Huddleston - help appreciated Likely D/C home with PO ABX depending on sputum culture Renal Mass Found on ultrasound Abdominal CT with and without contrast - no evidence of solid enhancing mass lesion in the left kidney. Re-demonstration of bilateral renal cyst larger on the left. Colonic diverticulosis without evidence of diverticulitis. No evidence of acute pathology in the abdomen. (please see full report) H/O HTN Continue home meds: Lopressor 50mg PO BID H/O hyperlipidemia Crestor 10mg PO HS ASA 81mg PO daily Prophylaxis Protonix 40mg PO daily [facility]CD[facility]
--- NOTE | 2017-03-12 15:32 | CP.PCM.CON ---
History of Present Illness - History of Present Illness History of Present Illness: Reason for consultation: Hemoptysis 81-year-old male with past medical history of Benign Prostatic Hyperplasia, CAD , Diabetes (Blood sugar 119), Diverticulitis, HTN, Hypercholesterolemia, Kidney Stones, presented with one-week history of cough productive of blood-tinged sputum associated with shortness of breath. Denies fever or chills, denies chest pain. Chest x-ray consistent with bibasilar infiltrates/atelectasis. Review of Systems - Review of Systems All systems: reviewed and no additional remarkable complaints except (Shortness of breath and cough) Past Patient History - Past Medical History & Family History Past Medical History?: Yes - Past Social History Smoking Status: Never Smoked - CARDIAC Hx Cardiac Disorders: (CAD) Hx Hypercholesterolemia: Yes Hx Hypertension: Yes - PULMONARY Hx Respiratory Disorders: Yes Hx Respiratory Tract Infection: Yes (UPPER) - NEUROLOGICAL Hx Neurological Disorder: Yes Hx Transient Ischemic Attacks (TIA): Yes - HEENT Hx HEENT Problems: Yes Other/Comment: impacted cerumen, otalgia - RENAL Hx Chronic Kidney Disease: Yes Hx Kidney Stones: Yes - ENDOCRINE/METABOLIC Hx Endocrine Disorders: Yes Hx Diabetes Mellitus Type 2: Yes - HEMATOLOGICAL/ONCOLOGICAL Hx Blood Disorders: No - INTEGUMENTARY Hx Dermatological Problems: No - MUSCULOSKELETAL/RHEUMATOLOGICAL Hx Musculoskeletal Disorders: No Hx Falls: No - GASTROINTESTINAL Hx Diverticulitis: Yes - GENITOURINARY/GYNECOLOGICAL Hx Genitourinary Disorders: Yes Hx Prostate Problems: Yes - PSYCHIATRIC Hx Psychophysiologic Disorder: No Hx Substance Use: No - SURGICAL HISTORY Hx Surgeries: Yes Hx Cholecystectomy: Yes Hx Coronary Stent: Yes (2007) - ANESTHESIA Hx Anesthesia: Yes Hx Anesthesia Reactions: No Hx Malignant Hyperthermia: No Has any member of the family had a problem w/ anesthesia?: No Meds Allergies/Adverse Reactions: Allergies Allergy/AdvReac Type Severity Reaction Status Date / Time clopidogrel bisulfate Allergy Mild ITCHING Verified 02/26/17 07:54 [From Plavix] moxifloxacin HCl Allergy Mild ITCHING Verified 02/26/17 07:54 [From Avelox] - Medications Medications: Current Medications Acetaminophen (Tylenol 325mg Tab) 650 mg PO Q6 PRN PRN Reason: Pain, moderate (4-7) Albuterol/Ipratropium (Duoneb 3 Mg/0.5 Mg (3 Ml) Ud) 3 ml INH RQ6 [facility] Last Admin: 03/12/17 13:10 Dose: 3 ml Aspirin (Ecotrin) [address] [facility] Last Admin: 03/10/17 13:28 Dose: Not Given Finasteride (Proscar) [address] [facility] Last Admin: 03/12/17 10:25 Dose: 5 mg Piperacillin Sod/Tazobactam (Sod 3.375 gm/ Sodium Chloride) 100 mls @ 200 mls/ hr IVPB Q8H [facility] Last Admin: 03/12/17 10:25 Dose: 200 mls/hr Azithromycin 500 mg/ Sodium (Chloride) 250 mls @ 167 mls/hr IVPB DAILY [facility] Last Admin: 03/12/17 10:25 Dose: 167 mls/hr Metoprolol Tartrate (Lopressor) [address] [facility] Last Admin: 03/12/17 10:25 Dose: 50 mg Pantoprazole Sodium (Protonix Ec Tab) [address] [facility] Last Admin: 03/12/17 10:25 Dose: 40 mg Rosuvastatin Calcium (Crestor) [address] [facility] Last Admin: 03/11/17 21:27 Dose: 10 mg Physical Exam - Head Exam Head Exam: ATRAUMATIC, NORMOCEPHALIC - Eye Exam Eye Exam: Normal appearance - ENT Exam ENT Exam: Mucous Membranes Moist - Neck Exam Neck exam: Positive for: Normal Inspection - Respiratory Exam Respiratory Exam: Rales - Cardiovascular Exam Cardiovascular Exam: REGULAR RHYTHM - GI/Abdominal Exam GI & Abdominal Exam: Normal Bowel Sounds, Soft - Extremities Exam Extremities exam: Positive for: normal inspection Results - Vital Signs Recent Vital Signs: Last Vital Signs Temp 97.7 F 03/12/17 10:24 Pulse 73 03/12/17 10:24 Resp 20 03/12/17 10:24 BP 133/76 03/12/17 10:24 Pulse Ox 98 03/12/17 10:24 - Labs Result Diagrams: 03/12/17 07:32 03/12/17 07:32 Labs: Laboratory Results - last 24 hr 03/12/17 03/12/17 07:32 07:32 WBC 6.8 RBC 4.33 L Hgb 13.6 Hct 41.5 MCV 95.9 H MCH 31.5 H MCHC 32.9 L RDW 14.1 Plt Count 379 MPV 7.6 Neut % (Auto) 63.3 Lymph % (Auto) 22.4 [place] % (Auto) 11.0 H Eos % (Auto) 2.7 Baso % (Auto) 0.6 Neut # 4.3 Lymph # 1.5 [place] # 0.8 Eos # 0.2 Baso # 0.0 Sodium 139 Potassium 4.3 Chloride 103 Carbon Dioxide 26 Anion Gap 15 BUN 12 Creatinine 1.1 Est GFR ( Amer) > 60 Est GFR (Non-Af Amer) > 60 Random Glucose 86 Calcium 8.4 L Total Bilirubin 1.2 AST 30 ALT 43 Alkaline Phosphatase 70 Total Protein 7.0 Albumin 3.9 Globulin 3.1 Albumin/Globulin Ratio 1.2 Assessment & Plan (1) Pneumonia Status: Acute Comment: CAT scan of the chest consistent with bibasilar infiltrate. Continue antibiotics per infectious disease and follow up culture and sensitivity. No further hemoptysis
--- NOTE | 2017-03-12 18:44 | CP.PCM.PN ---
Subjective - Date & Time of Evaluation Date of Evaluation: 03/12/17 Time of Evaluation: 11:20 - Subjective Subjective: clinically same Objective - Vital Signs/Intake and Output Vital Signs (last 24 hours): Temp Pulse Resp BP Pulse Ox 97.3 F L 62 20 126/73 100 03/12/17 16:00 03/12/17 16:00 03/12/17 16:00 03/12/17 16:00 03/12/17 16:00 Intake and Output: 03/12/17 03/12/17 06:59 18:59 Intake Total 200 830 Balance 200 830 - Medications Medications: Current Medications Acetaminophen (Tylenol 325mg Tab) 650 mg PO Q6 PRN PRN Reason: Pain, moderate (4-7) Albuterol/Ipratropium (Duoneb 3 Mg/0.5 Mg (3 Ml) Ud) 3 ml INH RQ6 [facility] Last Admin: 03/12/17 13:10 Dose: 3 ml Aspirin (Ecotrin) 81 mg PO DAILY [facility] Last Admin: 03/10/17 13:28 Dose: Not Given Finasteride (Proscar) 5 mg PO DAILY [facility] Last Admin: 03/12/17 10:25 Dose: 5 mg Piperacillin Sod/Tazobactam (Sod 3.375 gm/ Sodium Chloride) 100 mls @ 200 mls/ hr IVPB Q8H [facility] Last Admin: 03/12/17 17:34 Dose: 200 mls/hr Azithromycin 500 mg/ Sodium (Chloride) 250 mls @ 167 mls/hr IVPB DAILY [facility] Last Admin: 03/12/17 10:25 Dose: 167 mls/hr Metoprolol Tartrate (Lopressor) 50 mg PO DAILY [facility] Last Admin: 03/12/17 10:25 Dose: 50 mg Pantoprazole Sodium (Protonix Ec Tab) 40 mg PO DAILY [facility] Last Admin: 03/12/17 10:25 Dose: 40 mg Rosuvastatin Calcium (Crestor) 10 mg PO HS [facility] Last Admin: 03/11/17 21:27 Dose: 10 mg - Labs Labs: 03/12/17 07:32 03/12/17 07:32 PT 10.2 SECONDS (9.7-12.2) 03/09/17 03:34 INR 0.9 03/09/17 03:34 APTT 29 SECONDS (21-34) 03/09/17 03:34 - Constitutional Appears: Well - Head Exam Head Exam: ATRAUMATIC, NORMAL INSPECTION, NORMOCEPHALIC - Eye Exam Eye Exam: EOMI, Normal appearance, PERRL Pupil Exam: NORMAL ACCOMODATION, PERRL - ENT Exam ENT Exam: Mucous Membranes Moist, Normal Exam - Neck Exam Neck Exam: Full ROM, Normal Inspection. absent: Lymphadenopathy - Respiratory Exam Respiratory Exam: Decreased Breath Sounds - Cardiovascular Exam Cardiovascular Exam: REGULAR RHYTHM, +S1, +S2 - GI/Abdominal Exam GI & Abdominal Exam: Soft, Diminished Bowel Sounds - Rectal Exam Rectal Exam: Deferred Assessment and Plan (1) Abdominal pain, acute, left lower quadrant Status: Acute (2) Acute upper respiratory infection Status: Acute (3) Bronchitis Status: Acute (4) COPD exacerbation Status: Acute (5) Drainage of external ear Status: Acute (6) Dysphagia Status: Acute (7) Dyspnea Status: Acute (8) Fever Status: Acute (9) H/O prostate biopsy Status: Acute (10) Headache Status: Acute (11) Impacted cerumen Status: Acute (12) Otalgia Status: Acute (13) Pneumonia Status: Acute - Assessment and Plan (Free Text) Plan: Continue same as ordered Physical therapy Edithsylinda Cardio and ID on board
[2017-03-13] MEDS: Piperacillin/Tazobact 3.375 GM in Sodium Chloride 100 ML IVPB SCH ×3 (02:10→17:29)
[2017-03-13] MEDS: Albuterol-Ipratrop 3 mg / 0.5 (3 ml) UD INH SCH ×4 (02:38→20:27)
[2017-03-13] MEDS: Pantoprazole 40 mg EC Tab PO SCH (10:22)
[2017-03-13] MEDS: Azithromycin 500 MG in Sodium Chloride 0.9% 250 ML IVPB SCH (10:23)
--- NOTE | 2017-03-13 10:42 | CP.PCM.PN ---
Subjective - Date & Time of Evaluation Date of Evaluation: 03/13/17 Time of Evaluation: 09:40 - Subjective Subjective: PGY2 Medicine Note - Dr. Paulina Hong's service: Patient seen and examined at bedside this AM. Patient reports diffuse headache. Patient reports continued coughing. Patient denies fever, chills, chest pain, nausea, vomiting, abdominal pain, urinary complaints. Objective - Vital Signs/Intake and Output Vital Signs (last 24 hours): Temp Pulse Resp BP Pulse Ox 97.4 F L 69 20 138/67 138 H 03/13/17 07:00 03/13/17 07:00 03/13/17 07:00 03/13/17 07:00 03/13/17 07:00 Intake and Output: 03/13/17 03/13/17 06:59 18:59 Intake Total 530 Balance 530 - Medications Medications: Current Medications Acetaminophen (Tylenol 325mg Tab) 650 mg PO Q6 PRN PRN Reason: Pain, moderate (4-7) Albuterol/Ipratropium (Duoneb 3 Mg/0.5 Mg (3 Ml) Ud) 3 ml INH RQ6 [facility] Last Admin: 03/13/17 08:10 Dose: 3 ml Aspirin (Ecotrin) 81 mg PO DAILY [facility] Last Admin: 03/13/17 10:22 Dose: 81 mg Finasteride (Proscar) 5 mg PO DAILY [facility] Last Admin: 03/13/17 10:22 Dose: 5 mg Piperacillin Sod/Tazobactam (Sod 3.375 gm/ Sodium Chloride) 100 mls @ 200 mls/ hr IVPB Q8H [facility] Last Admin: 03/13/17 10:23 Dose: 200 mls/hr Azithromycin 500 mg/ Sodium (Chloride) 250 mls @ 167 mls/hr IVPB DAILY [facility] Last Admin: 03/13/17 10:23 Dose: 167 mls/hr Metoprolol Tartrate (Lopressor) 50 mg PO DAILY [facility] Last Admin: 03/13/17 10:22 Dose: 50 mg Pantoprazole Sodium (Protonix Ec Tab) 40 mg PO DAILY [facility] Last Admin: 03/13/17 10:22 Dose: 40 mg Rosuvastatin Calcium (Crestor) 10 mg PO HS [facility] Last Admin: 03/12/17 22:15 Dose: 10 mg - Labs Labs: 03/12/17 07:32 03/12/17 07:32 PT 10.2 SECONDS (9.7-12.2) 03/09/17 03:34 INR 0.9 03/09/17 03:34 APTT 29 SECONDS (21-34) 03/09/17 03:34 - Constitutional Appears: Non-toxic, No Acute Distress - Head Exam Head Exam: NORMAL INSPECTION - Eye Exam Eye Exam: EOMI - ENT Exam ENT Exam: Mucous Membranes Moist - Respiratory Exam Respiratory Exam: Rhonchi, NORMAL BREATHING PATTERN. absent: Accessory Muscle Use, Respiratory Distress - Cardiovascular Exam Cardiovascular Exam: REGULAR RHYTHM, +S1, +S2. absent: Gallop, Rubs - GI/Abdominal Exam GI & Abdominal Exam: Soft, Normal Bowel Sounds. absent: Tenderness - Extremities Exam Extremities Exam: absent: Pedal Edema - Neurological Exam Neurological Exam: Alert, Awake - Psychiatric Exam Psychiatric exam: Normal Affect, Normal Mood - Skin Skin Exam: Normal Color, Warm Assessment and Plan - Assessment and Plan (Free Text) Assessment: Prostate Cancer Urology consult - Dr. Jha- help appreciated Patient diagnosed in the [facility] but did not have any records. Prostate biopsy recently came back positive for cancer per Dr. Jha Renal mass also found on last hospital visit Patient will need to make an appointment with Dr. Jha in one week Pneumonia CXR - mild bibasilar atelectasis with right hilar prominence (please see full report) CTA 03/11/17 - 5.1cm cystic structure LUQ possibly extending from kidney. No evidence of PE. Bibasilar atelectasis and trace effusions. F/U sputum culture Blood Cx negative x 72 hours Zithromax 500mg IVPB daily Zosyn 3.375gm IVPB Q8 ID consult - Dr. Huddleston - help appreciated Likely D/C home with PO ABX depending on sputum culture Renal Mass Found on ultrasound Abdominal CT with and without contrast - no evidence of solid enhancing mass lesion in the left kidney. Re-demonstration of bilateral renal cyst larger on the left. Colonic diverticulosis without evidence of diverticulitis. No evidence of acute pathology in the abdomen. (please see full report) H/O HTN Continue home meds: Lopressor 50mg PO BID H/O hyperlipidemia Crestor 10mg PO HS ASA 81mg PO daily Prophylaxis Protonix 40mg PO daily [facility]
--- NOTE | 2017-03-13 11:29 | CP.PCM.PN ---
Subjective - Date & Time of Evaluation Date of Evaluation: 03/13/17 Time of Evaluation: 10:00 - Subjective Subjective: Patient seen and examined. Still complaining of cough but no hemoptysis Denies chest pain, denies fevers chills Objective - Vital Signs/Intake and Output Vital Signs (last 24 hours): Temp Pulse Resp BP Pulse Ox 97.4 F L 69 20 138/67 138 H 03/13/17 07:00 03/13/17 07:00 03/13/17 07:00 03/13/17 07:00 03/13/17 07:00 Intake and Output: 03/13/17 03/13/17 06:59 18:59 Intake Total 530 Balance 530 - Medications Medications: Current Medications Acetaminophen (Tylenol 325mg Tab) 650 mg PO Q6 PRN PRN Reason: Pain, moderate (4-7) Albuterol/Ipratropium (Duoneb 3 Mg/0.5 Mg (3 Ml) Ud) 3 ml INH RQ6 [facility] Last Admin: 03/13/17 08:10 Dose: 3 ml Aspirin (Ecotrin) 81 mg PO DAILY [facility] Last Admin: 03/13/17 10:22 Dose: 81 mg Finasteride (Proscar) 5 mg PO DAILY [facility] Last Admin: 03/13/17 10:22 Dose: 5 mg Piperacillin Sod/Tazobactam (Sod 3.375 gm/ Sodium Chloride) 100 mls @ 200 mls/ hr IVPB Q8H [facility] Last Admin: 03/13/17 10:23 Dose: 200 mls/hr Azithromycin 500 mg/ Sodium (Chloride) 250 mls @ 167 mls/hr IVPB DAILY [facility] Last Admin: 03/13/17 10:23 Dose: 167 mls/hr Metoprolol Tartrate (Lopressor) 50 mg PO DAILY [facility] Last Admin: 03/13/17 10:22 Dose: 50 mg Pantoprazole Sodium (Protonix Ec Tab) 40 mg PO DAILY [facility] Last Admin: 03/13/17 10:22 Dose: 40 mg Rosuvastatin Calcium (Crestor) 10 mg PO HS [facility] Last Admin: 03/12/17 22:15 Dose: 10 mg - Labs Labs: 03/12/17 07:32 03/12/17 07:32 PT 10.2 SECONDS (9.7-12.2) 04/30/17 03:34 INR 0.9 03/09/17 03:34 APTT 29 SECONDS (21-34) 03/09/17 03:34 - Head Exam Head Exam: ATRAUMATIC, NORMOCEPHALIC - Eye Exam Eye Exam: Normal appearance - ENT Exam ENT Exam: Mucous Membranes Moist - Respiratory Exam Respiratory Exam: Rales - Cardiovascular Exam Cardiovascular Exam: REGULAR RHYTHM - GI/Abdominal Exam GI & Abdominal Exam: Normal Bowel Sounds - Extremities Exam Extremities Exam: Normal Inspection - Neurological Exam Neurological Exam: Alert Assessment and Plan (1) Pneumonia Assessment & Plan: Continue antibiotics Follow-up chest x-ray Clinical improvement Status: Acute
--- NOTE | 2017-03-13 12:04 | PN ---
DATE: 03/13/2017 TIME OF FOLLOWUP: Roughly around 11:50 a.m. The patient is currently voiding mustapha urine well without complaints. He is currently being treated for pneumonia. PHYSICAL EXAMINATION: ABDOMEN: Soft, not distended or tender. No CVA tenderness and no suprapubic tenderness. VITAL SIGNS: His temperature is 97.4, pulse rate is 69, blood pressure is 138/67, respiration rate i s 20. His blood cultures so far showed no growth after 3 days, which was done 03/09/2017. LABORATORY DATA: On 03/12/2017 showed a CBC with a WBC count of 6.8, hemoglobin of 13.6, hematocrit of 41.5 with a platelet count of 379,000. His chem profile shows a sodium of 139, potassium 4.3, chlor janice 103, CO2 26, BUN and creatinine are 12 and 1.1 respectively with a GFR of greater than 60. His r andom glucose was 86. Calcium was 8.4. DIAGNOSTIC IMPRESSION: A new diagnosis of prostate cancer. PLAN: The patient was advised to follow up in the office in 1 week to discuss treatment recommendati ons. Efra Jha MD cc: [phone] TT: 03/13/2017 12:04:05 Confirmation # [id number] Dictation # [id number] bobby
[2017-03-13] MEDS ORDERED: Propofol 10 mg/ml Inj (20 ML) ONE (12:35)
[2017-03-13] MEDS ORDERED: Midazolam 2 MG/2 ML VIAL ONE (12:35)
--- NOTE | 2017-03-13 20:47 | CP.PCM.PN ---
Subjective - Date & Time of Evaluation Date of Evaluation: 03/13/17 Time of Evaluation: 10:20 - Subjective Subjective: clinically same Objective - Vital Signs/Intake and Output Vital Signs (last 24 hours): Temp Pulse Resp BP Pulse Ox 97.8 F 58 L 20 113/57 L 98 03/13/17 16:00 03/13/17 16:00 03/13/17 16:00 03/13/17 16:00 03/13/17 16:00 Intake and Output: 03/13/17 03/14/17 18:59 06:59 Intake Total 350 Balance 350 - Medications Medications: Current Medications Acetaminophen (Tylenol 325mg Tab) 650 mg PO Q6 PRN PRN Reason: Pain, moderate (4-7) Albuterol/Ipratropium (Duoneb 3 Mg/0.5 Mg (3 Ml) Ud) 3 ml INH RQ6 [facility] Last Admin: 03/13/17 20:27 Dose: 3 ml Aspirin (Ecotrin) 81 mg PO DAILY [facility] Last Admin: 03/13/17 10:22 Dose: 81 mg Finasteride (Proscar) 5 mg PO DAILY [facility] Last Admin: 03/13/17 10:22 Dose: 5 mg Piperacillin Sod/Tazobactam (Sod 3.375 gm/ Sodium Chloride) 100 mls @ 200 mls/ hr IVPB Q8H [facility] Last Admin: 03/13/17 17:29 Dose: 200 mls/hr Azithromycin 500 mg/ Sodium (Chloride) 250 mls @ 167 mls/hr IVPB DAILY [facility] Last Admin: 03/13/17 10:23 Dose: 167 mls/hr Metoprolol Tartrate (Lopressor) 50 mg PO DAILY [facility] Last Admin: 03/13/17 10:22 Dose: 50 mg Pantoprazole Sodium (Protonix Ec Tab) 40 mg PO DAILY [facility] Last Admin: 03/13/17 10:22 Dose: 40 mg Rosuvastatin Calcium (Crestor) 10 mg PO HS [facility] Last Admin: 03/12/17 22:15 Dose: 10 mg - Labs Labs: 03/12/17 07:32 03/12/17 07:32 PT 10.2 SECONDS (9.7-12.2) 03/09/17 03:34 INR 0.9 03/09/17 03:34 APTT 29 SECONDS (21-34) 03/09/17 03:34 - Constitutional Appears: Well - Head Exam Head Exam: ATRAUMATIC, NORMAL INSPECTION, NORMOCEPHALIC - Eye Exam Eye Exam: EOMI, Normal appearance, PERRL Pupil Exam: NORMAL ACCOMODATION, PERRL - ENT Exam ENT Exam: Mucous Membranes Moist, Normal Exam - Neck Exam Neck Exam: Full ROM, Normal Inspection. absent: Lymphadenopathy - Respiratory Exam Respiratory Exam: Decreased Breath Sounds - Cardiovascular Exam Cardiovascular Exam: REGULAR RHYTHM, +S1, +S2 - GI/Abdominal Exam GI & Abdominal Exam: Soft, Diminished Bowel Sounds - Rectal Exam Rectal Exam: Deferred Assessment and Plan (1) Abdominal pain, acute, left lower quadrant Status: Acute (2) Acute upper respiratory infection Status: Acute (3) Bronchitis Status: Acute (4) COPD exacerbation Status: Acute (5) Drainage of external ear Status: Acute (6) Dysphagia Status: Acute (7) Dyspnea Status: Acute (8) Fever Status: Acute (9) H/O prostate biopsy Status: Acute (10) Headache Status: Acute (11) Impacted cerumen Status: Acute (12) Otalgia Status: Acute (13) Pneumonia Status: Acute - Assessment and Plan (Free Text) Plan: Continue as ordered CAT scan of chest noted Continue antibiotics Pulmonic board Cardio consult Awaiting sputum culture reports Aspirin Watch for hemoptysis
[2017-03-14] MEDS: Albuterol-Ipratrop 3 mg / 0.5 (3 ml) UD INH SCH ×4 (01:44→20:04)
[2017-03-14] MEDS: Piperacillin/Tazobact 3.375 GM in Sodium Chloride 100 ML IVPB SCH ×3 (02:55→17:50)
--- NOTE | 2017-03-14 08:43 | CP.PCM.PN ---
Subjective - Date & Time of Evaluation Date of Evaluation: 03/11/17 Time of Evaluation: 08:41 - Subjective Subjective: less cough no chest pain Objective - Vital Signs/Intake and Output Vital Signs (last 24 hours): Temp Pulse Resp BP Pulse Ox 97.6 F 60 18 143/60 99 03/14/17 07:00 03/14/17 07:00 03/14/17 07:00 03/14/17 07:00 03/14/17 07:00 - Medications Medications: Current Medications Acetaminophen (Tylenol 325mg Tab) 650 mg PO Q6 PRN PRN Reason: Pain, moderate (4-7) Albuterol/Ipratropium (Duoneb 3 Mg/0.5 Mg (3 Ml) Ud) 3 ml INH RQ6 [facility] Last Admin: 03/14/17 01:44 Dose: Not Given Aspirin (Ecotrin) 81 mg PO DAILY [facility] Last Admin: 03/13/17 10:22 Dose: 81 mg Finasteride (Proscar) 5 mg PO DAILY [facility] Last Admin: 03/13/17 10:22 Dose: 5 mg Piperacillin Sod/Tazobactam (Sod 3.375 gm/ Sodium Chloride) 100 mls @ 200 mls/ hr IVPB Q8H [facility] Last Admin: 03/14/17 02:55 Dose: 200 mls/hr Azithromycin 500 mg/ Sodium (Chloride) 250 mls @ 167 mls/hr IVPB DAILY [facility] Last Admin: 03/13/17 10:23 Dose: 167 mls/hr Metoprolol Tartrate (Lopressor) 50 mg PO DAILY [facility] Last Admin: 03/13/17 10:22 Dose: 50 mg Pantoprazole Sodium (Protonix Ec Tab) 40 mg PO DAILY [facility] Last Admin: 03/13/17 10:22 Dose: 40 mg Rosuvastatin Calcium (Crestor) 10 mg PO HS [facility] Last Admin: 03/13/17 21:20 Dose: 10 mg - Labs Labs: 03/12/17 07:32 03/12/17 07:32 PT 10.2 SECONDS (9.7-12.2) 03/09/17 03:34 INR 0.9 03/09/17 03:34 APTT 29 SECONDS (21-34) 03/09/17 03:34 - Constitutional Appears: Non-toxic - Head Exam Head Exam: NORMAL INSPECTION - Eye Exam Eye Exam: absent: Scleral icterus - ENT Exam ENT Exam: Mucous Membranes Moist - Neck Exam Neck Exam: Full ROM - Respiratory Exam Respiratory Exam: Decreased Breath Sounds. absent: Respiratory Distress - Cardiovascular Exam Cardiovascular Exam: REGULAR RHYTHM - GI/Abdominal Exam GI & Abdominal Exam: Soft - Extremities Exam Extremities Exam: absent: Pedal Edema Assessment and Plan - Assessment and Plan (Free Text) Assessment: Acute Bronchitis Possible Atypical pneumonia Plan: Cont Abtx Discussed w/ ID
--- NOTE | 2017-03-14 08:53 | CP.PCM.PN ---
Subjective - Date & Time of Evaluation Date of Evaluation: 03/12/17 Time of Evaluation: 08:49 - Subjective Subjective: cont to improve no hemoptysis Objective - Vital Signs/Intake and Output Vital Signs (last 24 hours): Temp Pulse Resp BP Pulse Ox 97.6 F 60 18 143/60 99 03/14/17 07:00 03/14/17 07:00 03/14/17 07:00 03/14/17 07:00 03/14/17 07:00 - Medications Medications: Current Medications Acetaminophen (Tylenol 325mg Tab) 650 mg PO Q6 PRN PRN Reason: Pain, moderate (4-7) Albuterol/Ipratropium (Duoneb 3 Mg/0.5 Mg (3 Ml) Ud) 3 ml INH RQ6 [facility] Last Admin: 03/14/17 01:44 Dose: Not Given Aspirin (Ecotrin) 81 mg PO DAILY [facility] Last Admin: 03/13/17 10:22 Dose: 81 mg Finasteride (Proscar) 5 mg PO DAILY [facility] Last Admin: 03/13/17 10:22 Dose: 5 mg Piperacillin Sod/Tazobactam (Sod 3.375 gm/ Sodium Chloride) 100 mls @ 200 mls/ hr IVPB Q8H [facility] Last Admin: 03/14/17 02:55 Dose: 200 mls/hr Azithromycin 500 mg/ Sodium (Chloride) 250 mls @ 167 mls/hr IVPB DAILY [facility] Last Admin: 03/13/17 10:23 Dose: 167 mls/hr Metoprolol Tartrate (Lopressor) 50 mg PO DAILY [facility] Last Admin: 03/13/17 10:22 Dose: 50 mg Pantoprazole Sodium (Protonix Ec Tab) 40 mg PO DAILY [facility] Last Admin: 03/13/17 10:22 Dose: 40 mg Rosuvastatin Calcium (Crestor) 10 mg PO HS [facility] Last Admin: 03/13/17 21:20 Dose: 10 mg - Labs Labs: 03/12/17 07:32 03/12/17 07:32 PT 10.2 SECONDS (9.7-12.2) 03/09/17 03:34 INR 0.9 03/09/17 03:34 APTT 29 SECONDS (21-34) 03/09/17 03:34 - Constitutional Appears: Non-toxic - Head Exam Head Exam: NORMAL INSPECTION - Eye Exam Eye Exam: absent: Scleral icterus - ENT Exam ENT Exam: Mucous Membranes Moist - Neck Exam Neck Exam: Full ROM - Respiratory Exam Respiratory Exam: Decreased Breath Sounds, NORMAL BREATHING PATTERN - Cardiovascular Exam Cardiovascular Exam: REGULAR RHYTHM - GI/Abdominal Exam GI & Abdominal Exam: Soft - Extremities Exam Extremities Exam: absent: Pedal Edema Assessment and Plan - Assessment and Plan (Free Text) Assessment: Acute Bronchitis Hemoptysis T2DM Plan: Cont Abtx Case discussed w/ Dr Arzate
--- NOTE | 2017-03-14 08:59 | CP.PCM.PN ---
Subjective - Date & Time of Evaluation Date of Evaluation: 03/13/17 Time of Evaluation: 08:57 - Subjective Subjective: no hemoptysis no chest pain no sob Objective - Vital Signs/Intake and Output Vital Signs (last 24 hours): Temp Pulse Resp BP Pulse Ox 97.6 F 60 18 143/60 99 03/14/17 07:00 03/14/17 07:00 03/14/17 07:00 03/14/17 07:00 03/14/17 07:00 - Medications Medications: Current Medications Acetaminophen (Tylenol 325mg Tab) 650 mg PO Q6 PRN PRN Reason: Pain, moderate (4-7) Albuterol/Ipratropium (Duoneb 3 Mg/0.5 Mg (3 Ml) Ud) 3 ml INH RQ6 [facility] Last Admin: 03/14/17 01:44 Dose: Not Given Aspirin (Ecotrin) 81 mg PO DAILY [facility] Last Admin: 03/13/17 10:22 Dose: 81 mg Finasteride (Proscar) 5 mg PO DAILY [facility] Last Admin: 03/13/17 10:22 Dose: 5 mg Piperacillin Sod/Tazobactam (Sod 3.375 gm/ Sodium Chloride) 100 mls @ 200 mls/ hr IVPB Q8H [facility] Last Admin: 03/14/17 02:55 Dose: 200 mls/hr Azithromycin 500 mg/ Sodium (Chloride) 250 mls @ 167 mls/hr IVPB DAILY [facility] Last Admin: 03/13/17 10:23 Dose: 167 mls/hr Metoprolol Tartrate (Lopressor) 50 mg PO DAILY [facility] Last Admin: 03/13/17 10:22 Dose: 50 mg Pantoprazole Sodium (Protonix Ec Tab) 40 mg PO DAILY [facility] Last Admin: 03/13/17 10:22 Dose: 40 mg Rosuvastatin Calcium (Crestor) 10 mg PO HS [facility] Last Admin: 03/13/17 21:20 Dose: 10 mg - Labs Labs: 03/12/17 07:32 03/12/17 07:32 PT 10.2 SECONDS (9.7-12.2) 03/09/17 03:34 INR 0.9 03/09/17 03:34 APTT 29 SECONDS (21-34) 03/09/17 03:34 - Constitutional Appears: Non-toxic - Head Exam Head Exam: NORMAL INSPECTION - Eye Exam Eye Exam: absent: Scleral icterus - ENT Exam ENT Exam: Mucous Membranes Moist - Neck Exam Neck Exam: Full ROM. absent: Lymphadenopathy - Respiratory Exam Respiratory Exam: Decreased Breath Sounds - Cardiovascular Exam Cardiovascular Exam: REGULAR RHYTHM - GI/Abdominal Exam GI & Abdominal Exam: Soft - Extremities Exam Extremities Exam: Pedal Edema - Neurological Exam Neurological Exam: Alert, Awake Assessment and Plan - Assessment and Plan (Free Text) Assessment: Pneumonia T2DM CAD, stable Plan: Cont abtx Case discussed w/ Dr Huddleston and Dr Arzate
--- NOTE | 2017-03-14 09:15 | CP.PCM.PN ---
Subjective - Date & Time of Evaluation Date of Evaluation: 03/14/17 Time of Evaluation: 09:13 - Subjective Subjective: mild cough no hemoptysis Objective - Vital Signs/Intake and Output Vital Signs (last 24 hours): Temp Pulse Resp BP Pulse Ox 97.6 F 60 18 143/60 99 03/14/17 07:00 03/14/17 07:00 03/14/17 07:00 03/14/17 07:00 03/14/17 07:00 - Medications Medications: Current Medications Acetaminophen (Tylenol 325mg Tab) 650 mg PO Q6 PRN PRN Reason: Pain, moderate (4-7) Albuterol/Ipratropium (Duoneb 3 Mg/0.5 Mg (3 Ml) Ud) 3 ml INH RQ6 [facility] Last Admin: 03/14/17 09:08 Dose: 3 ml Aspirin (Ecotrin) 81 mg PO DAILY [facility] Last Admin: 03/13/17 10:22 Dose: 81 mg Finasteride (Proscar) 5 mg PO DAILY [facility] Last Admin: 03/13/17 10:22 Dose: 5 mg Piperacillin Sod/Tazobactam (Sod 3.375 gm/ Sodium Chloride) 100 mls @ 200 mls/ hr IVPB Q8H [facility] Last Admin: 03/14/17 02:55 Dose: 200 mls/hr Azithromycin 500 mg/ Sodium (Chloride) 250 mls @ 167 mls/hr IVPB DAILY [facility] Last Admin: 03/13/17 10:23 Dose: 167 mls/hr Metoprolol Tartrate (Lopressor) 50 mg PO DAILY [facility] Last Admin: 03/13/17 10:22 Dose: 50 mg Pantoprazole Sodium (Protonix Ec Tab) 40 mg PO DAILY [facility] Last Admin: 03/13/17 10:22 Dose: 40 mg Rosuvastatin Calcium (Crestor) 10 mg PO HS [facility] Last Admin: 03/13/17 21:20 Dose: 10 mg - Labs Labs: 03/12/17 07:32 03/12/17 07:32 PT 10.2 SECONDS (9.7-12.2) 03/09/17 03:34 INR 0.9 03/09/17 03:34 APTT 29 SECONDS (21-34) 03/09/17 03:34 - Constitutional Appears: Non-toxic - Head Exam Head Exam: NORMAL INSPECTION - Eye Exam Pupil Exam: NORMAL ACCOMODATION - ENT Exam ENT Exam: Mucous Membranes Moist - Neck Exam Neck Exam: Full ROM. absent: Lymphadenopathy - Respiratory Exam Respiratory Exam: Decreased Breath Sounds. absent: Wheezes - Cardiovascular Exam Cardiovascular Exam: REGULAR RHYTHM - Neurological Exam Neurological Exam: Alert, Awake Assessment and Plan - Assessment and Plan (Free Text) Assessment: Pneumonia CAD T2dm Plan: Cont Abtx Disc ussed w/ Dr Arzate
--- NOTE | 2017-03-14 09:17 | CP.PCM.PN ---
Subjective - Date & Time of Evaluation Date of Evaluation: 03/14/17 Time of Evaluation: 11:00 - Subjective Subjective: clinically same Objective - Vital Signs/Intake and Output Vital Signs (last 24 hours): Temp Pulse Resp BP Pulse Ox 97.6 F 60 18 143/60 99 03/14/17 07:00 03/14/17 07:00 03/14/17 07:00 03/14/17 07:00 03/14/17 07:00 - Medications Medications: Current Medications Acetaminophen (Tylenol 325mg Tab) 650 mg PO Q6 PRN PRN Reason: Pain, moderate (4-7) Albuterol/Ipratropium (Duoneb 3 Mg/0.5 Mg (3 Ml) Ud) 3 ml INH RQ6 [facility] Last Admin: 03/14/17 09:08 Dose: 3 ml Aspirin (Ecotrin) 81 mg PO DAILY [facility] Last Admin: 03/13/17 10:22 Dose: 81 mg Finasteride (Proscar) 5 mg PO DAILY [facility] Last Admin: 03/13/17 10:22 Dose: 5 mg Piperacillin Sod/Tazobactam (Sod 3.375 gm/ Sodium Chloride) 100 mls @ 200 mls/ hr IVPB Q8H [facility] Last Admin: 03/14/17 02:55 Dose: 200 mls/hr Azithromycin 500 mg/ Sodium (Chloride) 250 mls @ 167 mls/hr IVPB DAILY [facility] Last Admin: 03/13/17 10:23 Dose: 167 mls/hr Metoprolol Tartrate (Lopressor) 50 mg PO DAILY [facility] Last Admin: 03/13/17 10:22 Dose: 50 mg Pantoprazole Sodium (Protonix Ec Tab) 40 mg PO DAILY [facility] Last Admin: 03/13/17 10:22 Dose: 40 mg Rosuvastatin Calcium (Crestor) 10 mg PO HS [facility] Last Admin: 03/13/17 21:20 Dose: 10 mg - Labs Labs: 03/12/17 07:32 03/12/17 07:32 PT 10.2 SECONDS (9.7-12.2) 03/09/17 03:34 INR 0.9 03/09/17 03:34 APTT 29 SECONDS (21-34) 03/09/17 03:34 - Constitutional Appears: Well - Head Exam Head Exam: ATRAUMATIC, NORMAL INSPECTION, NORMOCEPHALIC - Eye Exam Eye Exam: EOMI, Normal appearance, PERRL Pupil Exam: NORMAL ACCOMODATION, PERRL - ENT Exam ENT Exam: Mucous Membranes Moist, Normal Exam - Neck Exam Neck Exam: Full ROM, Normal Inspection. absent: Lymphadenopathy - Respiratory Exam Respiratory Exam: Decreased Breath Sounds - Cardiovascular Exam Cardiovascular Exam: REGULAR RHYTHM, +S1, +S2 - GI/Abdominal Exam GI & Abdominal Exam: Soft, Diminished Bowel Sounds - Rectal Exam Rectal Exam: Deferred Assessment and Plan (1) Abdominal pain, acute, left lower quadrant Status: Acute (2) Acute upper respiratory infection Status: Acute (3) Bronchitis Status: Acute (4) COPD exacerbation Status: Acute (5) Drainage of external ear Status: Acute (6) Dysphagia Status: Acute (7) Dyspnea Status: Acute (8) Fever Status: Acute (9) H/O prostate biopsy Status: Acute (10) Headache Status: Acute (11) Impacted cerumen Status: Acute (12) Otalgia Status: Acute (13) Pneumonia Status: Acute - Assessment and Plan (Free Text) Plan: Continue same Watch for hemoptysis Awaiting culture reports Discussed with Dr. Huddleston
[2017-03-14] MEDS: Pantoprazole 40 mg EC Tab PO SCH (09:22)
[2017-03-14] MEDS: Azithromycin 500 MG in Sodium Chloride 0.9% 250 ML IVPB SCH (09:23)
--- NOTE | 2017-03-14 09:56 | CP.PCM.PN ---
Subjective - Date & Time of Evaluation Date of Evaluation: 03/14/17 Time of Evaluation: 08:20 - Subjective Subjective: patient seen and examined. Sitting comfortably in no acute distress, complaining of cough but no hemoptysis , denies fever chills or david chest pain Objective - Vital Signs/Intake and Output Vital Signs (last 24 hours): Temp Pulse Resp BP Pulse Ox 97.6 F 60 18 143/60 99 03/14/17 07:00 03/14/17 07:00 03/14/17 07:00 03/14/17 07:00 03/14/17 07:00 - Medications Medications: Current Medications Acetaminophen (Tylenol 325mg Tab) 650 mg PO Q6 PRN PRN Reason: Pain, moderate (4-7) Albuterol/Ipratropium (Duoneb 3 Mg/0.5 Mg (3 Ml) Ud) 3 ml INH RQ6 [facility] Last Admin: 03/14/17 09:08 Dose: 3 ml Aspirin (Ecotrin) 81 mg PO DAILY [facility] Last Admin: 03/14/17 09:22 Dose: 81 mg Finasteride (Proscar) 5 mg PO DAILY [facility] Last Admin: 03/14/17 09:22 Dose: 5 mg Piperacillin Sod/Tazobactam (Sod 3.375 gm/ Sodium Chloride) 100 mls @ 200 mls/ hr IVPB Q8H [facility] Last Admin: 03/14/17 09:23 Dose: 200 mls/hr Azithromycin 500 mg/ Sodium (Chloride) 250 mls @ 167 mls/hr IVPB DAILY [facility] Last Admin: 03/14/17 09:23 Dose: 167 mls/hr Metoprolol Tartrate (Lopressor) 50 mg PO DAILY [facility] Last Admin: 03/14/17 09:22 Dose: 50 mg Pantoprazole Sodium (Protonix Ec Tab) 40 mg PO DAILY [facility] Last Admin: 03/14/17 09:22 Dose: 40 mg Rosuvastatin Calcium (Crestor) 10 mg PO HS [facility] Last Admin: 03/13/17 21:20 Dose: 10 mg - Labs Labs: 03/12/17 07:32 03/12/17 07:32 PT 10.2 SECONDS (9.7-12.2) 03/09/17 03:34 INR 0.9 03/09/17 03:34 APTT 29 SECONDS (21-34) 03/09/17 03:34 - Head Exam Head Exam: ATRAUMATIC, NORMOCEPHALIC - Eye Exam Eye Exam: Normal appearance Pupil Exam: PERRL - ENT Exam ENT Exam: Mucous Membranes Moist - Neck Exam Neck Exam: Full ROM - Respiratory Exam Respiratory Exam: Clear to Ausculation Bilateral - Cardiovascular Exam Cardiovascular Exam: REGULAR RHYTHM - GI/Abdominal Exam GI & Abdominal Exam: Soft, Normal Bowel Sounds - Extremities Exam Extremities Exam: Normal Inspection - Neurological Exam Neurological Exam: Alert, Oriented x3 Assessment and Plan (1) Pneumonia Assessment & Plan: continue antibiotics per infectious disease and followup pro calcitonin level Status: Acute
--- NOTE | 2017-03-14 13:26 | CP.PCM.PN ---
Subjective - Date & Time of Evaluation Date of Evaluation: 03/14/17 Time of Evaluation: 10:00 - Subjective Subjective: Medicine Progress Note Patient seen and examined. Patient complains of productive cough with white mucous. The patient otherwise has no acute complaints. He states that when he ambulates he does not feel short of breath. Denies chest pain, nausea, vomiting , and headache. Objective - Vital Signs/Intake and Output Vital Signs (last 24 hours): Temp Pulse Resp BP Pulse Ox 97.6 F 60 18 143/60 99 03/14/17 07:00 03/14/17 07:00 03/14/17 07:00 03/14/17 07:00 03/14/17 07:00 - Medications Medications: Current Medications Acetaminophen (Tylenol 325mg Tab) 650 mg PO Q6 PRN PRN Reason: Pain, moderate (4-7) Albuterol/Ipratropium (Duoneb 3 Mg/0.5 Mg (3 Ml) Ud) 3 ml INH RQ6 [facility] Last Admin: 03/14/17 09:08 Dose: 3 ml Aspirin (Ecotrin) 81 mg PO DAILY [facility] Last Admin: 03/14/17 09:22 Dose: 81 mg Finasteride (Proscar) 5 mg PO DAILY [facility] Last Admin: 03/14/17 09:22 Dose: 5 mg Piperacillin Sod/Tazobactam (Sod 3.375 gm/ Sodium Chloride) 100 mls @ 200 mls/ hr IVPB Q8H [facility] Last Admin: 03/14/17 09:23 Dose: 200 mls/hr Azithromycin 500 mg/ Sodium (Chloride) 250 mls @ 167 mls/hr IVPB DAILY [facility] Last Admin: 03/14/17 09:23 Dose: 167 mls/hr Metoprolol Tartrate (Lopressor) 50 mg PO DAILY [facility] Last Admin: 03/14/17 09:22 Dose: 50 mg Pantoprazole Sodium (Protonix Ec Tab) 40 mg PO DAILY [facility] Last Admin: 03/14/17 09:22 Dose: 40 mg Rosuvastatin Calcium (Crestor) 10 mg PO HS [facility] Last Admin: 03/13/17 21:20 Dose: 10 mg - Labs Labs: 03/12/17 07:32 03/12/17 07:32 PT 10.2 SECONDS (9.7-12.2) 03/09/17 03:34 INR 0.9 03/09/17 03:34 APTT 29 SECONDS (21-34) 03/09/17 03:34 - Constitutional Appears: Non-toxic, No Acute Distress - Head Exam Head Exam: ATRAUMATIC, NORMOCEPHALIC - Eye Exam Eye Exam: EOMI, Normal appearance - ENT Exam ENT Exam: Mucous Membranes Moist - Neck Exam Neck Exam: Normal Inspection - Respiratory Exam Respiratory Exam: Rhonchi, Wheezes, NORMAL BREATHING PATTERN. absent: Accessory Muscle Use, Chest Wall Tenderness, Respiratory Distress - Cardiovascular Exam Cardiovascular Exam: REGULAR RHYTHM, +S1, +S2 - GI/Abdominal Exam GI & Abdominal Exam: Soft, Normal Bowel Sounds - Extremities Exam Extremities Exam: Normal Inspection. absent: Pedal Edema - Neurological Exam Neurological Exam: Alert, Awake, Oriented x3 - Psychiatric Exam Psychiatric exam: Normal Affect, Normal Mood - Skin Skin Exam: Dry, Intact, Normal Color, Warm Assessment and Plan - Assessment and Plan (Free Text) Assessment: Prostate Cancer Urology consult - Dr. Jha- help appreciated Patient diagnosed in the [facility] but did not have any records. Prostate biopsy recently came back positive for cancer per Dr. Jha Renal mass also found on last hospital visit Patient will need to make an appointment with Dr. Jha in one week Pneumonia CXR - mild bibasilar atelectasis with right hilar prominence (please see full report) CTA 03/11/17 - 5.1cm cystic structure LUQ possibly extending from kidney. No evidence of PE. Bibasilar atelectasis and trace effusions. F/U sputum culture- preliminary normal oral harinder Blood Cx negative x 4 days Zithromax 500mg IVPB daily Zosyn 3.375gm IVPB Q8 ID consult - Dr. Huddleston - help appreciated Pulm Dr Arzate consulted- help appreciated Mucinex for cough Likely D/C home with PO ABX depending on sputum culture f/u procalcitonin Renal Mass Found on ultrasound Abdominal CT with and without contrast - no evidence of solid enhancing mass lesion in the left kidney. Re-demonstration of bilateral renal cyst larger on the left. Colonic diverticulosis without evidence of diverticulitis. No evidence of acute pathology in the abdomen. (please see full report) Will need outpatient follow up for additional imaging H/O HTN Continue home meds: Lopressor 50mg PO BID H/O hyperlipidemia Crestor 10mg PO HS ASA 81mg PO daily Prophylaxis Protonix 40mg PO daily [facility]
[2017-03-14 16:47] VITALS: RESP 20
[2017-03-14] MEDS: guaiFENesin 600 mg ER Tab PO SCH (21:43)
[2017-03-15] MEDS: Piperacillin/Tazobact 3.375 GM in Sodium Chloride 100 ML IVPB SCH ×3 (01:14→17:46)
[2017-03-15] MEDS: Albuterol-Ipratrop 3 mg / 0.5 (3 ml) UD INH SCH ×4 (01:19→20:19)
[2017-03-15] MEDS: Azithromycin 500 MG in Sodium Chloride 0.9% 250 ML IVPB SCH (09:57)
[2017-03-15] MEDS: Pantoprazole 40 mg EC Tab PO SCH (09:58)
[2017-03-15] MEDS: guaiFENesin 600 mg ER Tab PO SCH ×2 (09:58→21:28)
[2017-03-15 11:27] LABS: BASO % 0.7 % (0.0-2.0); EOS # 0.1 K/uL (0.0-0.7); HEMATOCRIT 41.3 % (35.0-51.0); LYMPH % 18.3 % (20.0-40.0); MEAN CELL VOLUME 96.5 fL (80.0-94.0); MEAN CORPUSCULAR HEMOGLOBIN 31.9 pg (27.0-31.0); MEAN CORPUSCULAR HGB CONC 33.1 g/dL (33.0-37.0); MEAN PLATELET VOLUME 7.8 fL (7.2-11.7); MONO # 0.8 K/uL (0.0-0.8); MONO % 13.6 % (0.0-10.0); WHITE BLOOD COUNT 5.6 K/uL (4.8-10.8)
[2017-03-15 11:36] LABS: CHLORIDE 102 mmol/L (98-107)
[2017-03-15 11:37] LABS: POTASSIUM 3.9 mmol/L (3.6-5.2); SODIUM 140 mmol/L (132-148)
[2017-03-15 11:39] LABS: ALB/GLOB RATIO 1.3 (1.0-2.1); ALKALINE PHOSPHATASE 75 U/L (38-126); ALT/SGPT 34 U/L (21-72); AST/SGOT 34 U/L (17-59); BILIRUBIN,TOTAL 1.1 mg/dL (0.2-1.3); BLOOD UREA NITROGEN 13 mg/dL (9-20); CARBON DIOXIDE 22 mmol/L (22-30); GFR AFRICAN-AMERICAN > 60
[2017-03-15 11:40] LABS: CALCIUM 8.3 mg/dl (8.6-10.4); GLUCOSE,RANDOM 89 mg/dL (75-110)
--- NOTE | 2017-03-15 11:49 | CP.PCM.PN ---
Subjective - Date & Time of Evaluation Date of Evaluation: 03/15/17 Time of Evaluation: 11:00 - Subjective Subjective: clinically same Objective - Vital Signs/Intake and Output Vital Signs (last 24 hours): Temp Pulse Resp BP Pulse Ox 97.9 F 72 20 167/47 H 100 03/15/17 08:29 03/15/17 08:29 03/15/17 08:29 03/15/17 08:29 03/15/17 08:29 Intake and Output: 03/15/17 03/15/17 06:59 18:59 Intake Total 100 Balance 100 - Medications Medications: Current Medications Acetaminophen (Tylenol 325mg Tab) 650 mg PO Q6 PRN PRN Reason: Pain, moderate (4-7) Albuterol/Ipratropium (Duoneb 3 Mg/0.5 Mg (3 Ml) Ud) 3 ml INH RQ6 [facility] Last Admin: 03/15/17 01:19 Dose: Not Given Aspirin (Ecotrin) 81 mg PO DAILY [facility] Last Admin: 03/15/17 09:58 Dose: 81 mg Finasteride (Proscar) 5 mg PO DAILY [facility] Last Admin: 03/15/17 09:58 Dose: 5 mg Guaifenesin (Mucinex La) 600 mg PO Q12 [facility] Last Admin: 03/15/17 09:58 Dose: 600 mg Guaifenesin (Robitussin) 100 mg PO Q6 [facility] Piperacillin Sod/Tazobactam (Sod 3.375 gm/ Sodium Chloride) 100 mls @ 200 mls/ hr IVPB Q8H [facility] Last Admin: 03/15/17 09:58 Dose: 200 mls/hr Azithromycin 500 mg/ Sodium (Chloride) 250 mls @ 167 mls/hr IVPB DAILY [facility] Last Admin: 03/15/17 09:57 Dose: 167 mls/hr Metoprolol Tartrate (Lopressor) 50 mg PO DAILY [facility] Last Admin: 03/15/17 09:58 Dose: 50 mg Pantoprazole Sodium (Protonix Ec Tab) 40 mg PO DAILY [facility] Last Admin: 03/15/17 09:58 Dose: 40 mg Rosuvastatin Calcium (Crestor) 10 mg PO HS [facility] Last Admin: 03/14/17 21:43 Dose: 10 mg - Labs Labs: 03/15/17 11:08 03/15/17 11:08 PT 10.2 SECONDS (9.7-12.2) 03/09/17 03:34 INR 0.9 03/09/17 03:34 APTT 29 SECONDS (21-34) 03/09/17 03:34 - Constitutional Appears: Well - Head Exam Head Exam: ATRAUMATIC, NORMAL INSPECTION, NORMOCEPHALIC - Eye Exam Eye Exam: EOMI, Normal appearance, PERRL Pupil Exam: NORMAL ACCOMODATION, PERRL - ENT Exam ENT Exam: Mucous Membranes Moist, Normal Exam - Neck Exam Neck Exam: Full ROM, Normal Inspection. absent: Lymphadenopathy - Respiratory Exam Respiratory Exam: Decreased Breath Sounds - Cardiovascular Exam Cardiovascular Exam: REGULAR RHYTHM, +S1, +S2 - GI/Abdominal Exam GI & Abdominal Exam: Soft, Diminished Bowel Sounds - Rectal Exam Rectal Exam: Deferred Assessment and Plan (1) Abdominal pain, acute, left lower quadrant Status: Acute (2) Acute upper respiratory infection Status: Acute (3) Bronchitis Status: Acute (4) COPD exacerbation Status: Acute (5) Drainage of external ear Status: Acute (6) Dysphagia Status: Acute (7) Dyspnea Status: Acute (8) Fever Status: Acute (9) H/O prostate biopsy Status: Acute (10) Headache Status: Acute (11) Impacted cerumen Status: Acute (12) Otalgia Status: Acute (13) Pneumonia Status: Acute - Assessment and Plan (Free Text) Plan: Patient feeling better No shortness of breath no chest pain no hemoptysis ID on board Continue antibiotics Watch for hemoptysis
[2017-03-15] MEDS: guaiFENesin 100 mg/5 ml Syrup UD PO SCH ×2 (13:58→17:46)
[2017-03-16] MEDS: guaiFENesin 100 mg/5 ml Syrup UD PO SCH ×3 (00:24→11:56)
[2017-03-16] MEDS: Piperacillin/Tazobact 3.375 GM in Sodium Chloride 100 ML IVPB SCH ×2 (02:00→09:12)
[2017-03-16] MEDS: Albuterol-Ipratrop 3 mg / 0.5 (3 ml) UD INH SCH ×2 (07:45→13:46)
[2017-03-16 08:40] VITALS: O2SAT 98
[2017-03-16] MEDS: Pantoprazole 40 mg EC Tab PO SCH (09:10)
[2017-03-16] MEDS: guaiFENesin 600 mg ER Tab PO SCH (09:10)
[2017-03-16] MEDS: Azithromycin 500 MG in Sodium Chloride 0.9% 250 ML IVPB SCH (09:11)
--- NOTE | 2017-03-16 10:04 | CP.PCM.PN ---
Subjective - Date & Time of Evaluation Date of Evaluation: 03/16/17 Time of Evaluation: 07:30 - Subjective Subjective: patient seen and examined. Sitting comfortably complaining of slight cough but overall condition much Denies fever chills, denies chest pain Objective - Vital Signs/Intake and Output Vital Signs (last 24 hours): Temp Pulse Resp BP Pulse Ox 97.5 F L 72 20 139/72 98 03/16/17 07:40 03/16/17 07:40 03/16/17 07:40 03/16/17 07:40 03/16/17 07:40 - Medications Medications: Current Medications Acetaminophen (Tylenol 325mg Tab) 650 mg PO Q6 PRN PRN Reason: Pain, moderate (4-7) Albuterol/Ipratropium (Duoneb 3 Mg/0.5 Mg (3 Ml) Ud) 3 ml INH RQ6 [facility] Last Admin: 03/16/17 07:45 Dose: 3 ml Aspirin (Ecotrin) 81 mg PO DAILY [facility] Last Admin: 03/16/17 09:10 Dose: 81 mg Finasteride (Proscar) 5 mg PO DAILY [facility] Last Admin: 03/16/17 09:10 Dose: 5 mg Guaifenesin (Mucinex La) 600 mg PO Q12 [facility] Last Admin: 03/16/17 09:10 Dose: 600 mg Guaifenesin (Robitussin) 100 mg PO Q6 [facility] Last Admin: 03/16/17 05:08 Dose: Not Given Piperacillin Sod/Tazobactam (Sod 3.375 gm/ Sodium Chloride) 100 mls @ 200 mls/ hr IVPB Q8H [facility] Last Admin: 03/16/17 09:12 Dose: 200 mls/hr Azithromycin 500 mg/ Sodium (Chloride) 250 mls @ 167 mls/hr IVPB DAILY [facility] Last Admin: 03/16/17 09:11 Dose: 167 mls/hr Metoprolol Tartrate (Lopressor) 50 mg PO DAILY [facility] Last Admin: 03/16/17 09:10 Dose: 50 mg Pantoprazole Sodium (Protonix Ec Tab) 40 mg PO DAILY [facility] Last Admin: 03/16/17 09:10 Dose: 40 mg Rosuvastatin Calcium (Crestor) 10 mg PO HS [facility] Last Admin: 03/15/17 21:28 Dose: 10 mg - Labs Labs: 03/15/17 11:08 05/06/17 11:08 PT 10.2 SECONDS (9.7-12.2) 03/09/17 03:34 INR 0.9 03/09/17 03:34 APTT 29 SECONDS (21-34) 03/09/17 03:34 - Head Exam Head Exam: ATRAUMATIC, NORMOCEPHALIC - Eye Exam Eye Exam: Normal appearance - ENT Exam ENT Exam: Mucous Membranes Moist - Neck Exam Neck Exam: Normal Inspection - Respiratory Exam Respiratory Exam: Clear to Ausculation Bilateral - Cardiovascular Exam Cardiovascular Exam: REGULAR RHYTHM - GI/Abdominal Exam GI & Abdominal Exam: Soft, Normal Bowel Sounds - Extremities Exam Extremities Exam: Full ROM, Normal Inspection Assessment and Plan (1) Pneumonia Assessment & Plan: clinically much improved Stable from pulmonary standpoint switch to p.o. antibiotics Status: Acute
--- NOTE | 2017-03-16 12:47 | CP.PCM.PN ---
Subjective - Date & Time of Evaluation Date of Evaluation: 03/16/17 Time of Evaluation: 11:00 - Subjective Subjective: clinically same Objective - Vital Signs/Intake and Output Vital Signs (last 24 hours): Temp Pulse Resp BP Pulse Ox 97.5 F L 72 20 139/72 98 03/16/17 07:40 03/16/17 07:40 03/16/17 07:40 03/16/17 07:40 03/16/17 07:40 - Medications Medications: Current Medications Acetaminophen (Tylenol 325mg Tab) 650 mg PO Q6 PRN PRN Reason: Pain, moderate (4-7) Albuterol/Ipratropium (Duoneb 3 Mg/0.5 Mg (3 Ml) Ud) 3 ml INH RQ6 [facility] Last Admin: 03/16/17 07:45 Dose: 3 ml Aspirin (Ecotrin) 81 mg PO DAILY [facility] Last Admin: 03/16/17 09:10 Dose: 81 mg Finasteride (Proscar) 5 mg PO DAILY [facility] Last Admin: 03/16/17 09:10 Dose: 5 mg Guaifenesin (Mucinex La) 600 mg PO Q12 [facility] Last Admin: 03/16/17 09:10 Dose: 600 mg Guaifenesin (Robitussin) 100 mg PO Q6 [facility] Last Admin: 03/16/17 11:56 Dose: 100 mg Piperacillin Sod/Tazobactam (Sod 3.375 gm/ Sodium Chloride) 100 mls @ 200 mls/ hr IVPB Q8H [facility] Last Admin: 03/16/17 09:12 Dose: 200 mls/hr Azithromycin 500 mg/ Sodium (Chloride) 250 mls @ 167 mls/hr IVPB DAILY [facility] Last Admin: 03/16/17 09:11 Dose: 167 mls/hr Metoprolol Tartrate (Lopressor) 50 mg PO DAILY [facility] Last Admin: 03/16/17 09:10 Dose: 50 mg Pantoprazole Sodium (Protonix Ec Tab) 40 mg PO DAILY [facility] Last Admin: 03/16/17 09:10 Dose: 40 mg Rosuvastatin Calcium (Crestor) 10 mg PO HS [facility] Last Admin: 03/15/17 21:28 Dose: 10 mg - Labs Labs: 03/15/17 11:08 03/15/17 11:08 PT 10.2 SECONDS (9.7-12.2) 03/09/17 03:34 INR 0.9 03/09/17 03:34 APTT 29 SECONDS (21-34) 03/09/17 03:34 - Constitutional Appears: Well - Head Exam Head Exam: ATRAUMATIC, NORMAL INSPECTION, NORMOCEPHALIC - Eye Exam Eye Exam: EOMI, Normal appearance, PERRL Pupil Exam: NORMAL ACCOMODATION, PERRL - ENT Exam ENT Exam: Mucous Membranes Moist, Normal Exam - Neck Exam Neck Exam: Full ROM, Normal Inspection. absent: Lymphadenopathy - Respiratory Exam Respiratory Exam: Decreased Breath Sounds - Cardiovascular Exam Cardiovascular Exam: REGULAR RHYTHM, +S1, +S2 - GI/Abdominal Exam GI & Abdominal Exam: Soft, Diminished Bowel Sounds - Rectal Exam Rectal Exam: Deferred
--- NOTE | 2017-03-16 13:46 | CP.PCM.DIS ---
Provider - Provider Date of Admission: 03/09/17 04:56 Attending physician: Austin Hong MD Time Spent in preparation of Discharge (in minutes): 30 Hospital Course - Lab Results Lab Results: Micro Results 03/12/17 15:00 Sputum Induced Gram Stain - Final 03/12/17 15:00 Sputum Induced Sputum Culture - Final NORMAL ORAL [facility] Most Recent Lab Values WBC 5.6 K/uL (4.8-10.8) 03/15/17 11:08 RBC 4.27 Mil/uL (4.40-5.90) L 03/15/17 11:08 Hgb 13.6 g/dL (12.0-18.0) 03/15/17 11:08 Hct 41.3 % (35.0-51.0) 03/15/17 11:08 MCV 96.5 fL (80.0-94.0) H 03/15/17 11:08 MCH 31.9 pg (27.0-31.0) H 03/15/17 11:08 MCHC 33.1 g/dL (33.0-37.0) 03/15/17 11:08 RDW 15.0 % (11.5-14.5) H 03/15/17 11:08 Plt Count 324 K/uL (130-400) 03/15/17 11:08 MPV 7.8 fL (7.2-11.7) 03/15/17 11:08 Neut % (Auto) 65.4 % (50.0-75.0) 03/15/17 11:08 Lymph % (Auto) 18.3 % (20.0-40.0) L 03/15/17 11:08 [place] % (Auto) 13.6 % (0.0-10.0) H 03/15/17 11:08 Eos % (Auto) 2.0 % (0.0-4.0) 03/15/17 11:08 Baso % (Auto) 0.7 % (0.0-2.0) 03/15/17 11:08 Neut # 3.6 K/uL (1.8-7.0) 03/15/17 11:08 Lymph # 1.0 K/uL (1.0-4.3) 03/15/17 11:08 [place] # 0.8 K/uL (0.0-0.8) 03/15/17 11:08 Eos # 0.1 K/uL (0.0-0.7) 03/15/17 11:08 Baso # 0.0 K/uL (0.0-0.2) 03/15/17 11:08 PT 10.2 SECONDS (9.7-12.2) 03/09/17 03:34 INR 0.9 03/09/17 03:34 APTT 29 SECONDS (21-34) 03/09/17 03:34 pO2 29 mm/Hg (30-55) L 03/09/17 03:50 VBG pH 7.34 (7.32-7.43) 03/09/17 03:50 VBG pCO2 50 mmHg (40-60) 03/09/17 03:50 VBG HCO3 24.0 mmol/L 03/09/17 03:50 VBG Total CO2 28.5 mmol/L (22-28) H 03/09/17 03:50 VBG O2 Sat (Calc) 54.1 % (40-65) 03/09/17 03:50 VBG Base Excess 0.5 mmol/L (0.0-2.0) 03/09/17 03:50 VBG Potassium 3.9 mmol/L (3.6-5.2) 03/09/17 03:50 Sodium 142.0 mmol/l (132-148) 03/09/17 03:50 Chloride 111.0 mmol/L (98-107) H 03/09/17 03:50 Glucose 97 mg/dl (75-110) 03/09/17 03:50 Lactate 1.3 mmol/L (0.7-2.1) 03/09/17 03:50 Crit Value Called To Dr. bañuelos 03/09/17 03:50 Crit Value Called By Alyce platt rt 03/09/17 03:50 Crit Value Read Back Y 03/09/17 03:50 Blood Gas Notified Time 410 03/09/17 03:50 Sodium 140 mmol/L (132-148) 03/15/17 11:08 Potassium 3.9 mmol/L (3.6-5.2) 03/15/17 11:08 Chloride 102 mmol/L (98-107) 03/15/17 11:08 Carbon Dioxide 22 mmol/L (22-30) 03/15/17 11:08 Anion Gap 21 (10-20) H 03/15/17 11:08 BUN 13 mg/dL (9-20) 03/15/17 11:08 Creatinine 1.1 MG/DL (0.8-1.5) 03/15/17 11:08 Est GFR ( Amer) > 60 03/15/17 11:08 Est GFR (Non-Af Amer) > 60 03/15/17 11:08 POC Glucose (mg/dL) 96 mg/dL (65-110) 03/10/17 06:32 Random Glucose 89 mg/dL (75-110) 03/15/17 11:08 Calcium 8.3 mg/dl (8.6-10.4) L 03/15/17 11:08 Total Bilirubin 1.1 mg/dL (0.2-1.3) 03/15/17 11:08 AST 34 U/L (17-59) 03/15/17 11:08 ALT 34 U/L (21-72) 03/15/17 11:08 Alkaline Phosphatase 75 U/L (38-126) 03/15/17 11:08 Troponin I < 0.0120 ng/mL (0.00-0.120) 03/09/17 03:34 NT-Pro-B Natriuret Pep 887 pg/mL (0-900) 03/09/17 03:34 Total Protein 7.0 g/dL (6.3-8.3) 03/15/17 11:08 Albumin 3.9 g/dL (3.5-5.0) 03/15/17 11:08 Globulin 3.1 gm/dL (2.2-3.9) 03/15/17 11:08 Albumin/Globulin Ratio 1.3 (1.0-2.1) 03/15/17 11:08 Venous Blood Potassium 3.9 mmol/L (3.6-5.2) 03/09/17 03:50 Urine Color Yellow (YELLOW) 03/09/17 05:06 Urine Clarity Clear (Clear) 03/09/17 05:06 Urine pH 5.0 (5.0-8.0) 03/09/17 05:06 Ur Specific [place] 1.019 (1.003-1.030) 03/09/17 05:06 Urine Protein 2+ mg/dL (NEGATIVE) H 03/09/17 05:06 Urine Glucose (UA) Normal mg/dL (Normal) 03/09/17 05:06 Urine Ketones Negative mg/dL (NEGATIVE) 03/09/17 05:06 Urine Blood 1+ (NEGATIVE) H 03/09/17 05:06 Urine Nitrate Negative (NEGATIVE) 03/09/17 05:06 Urine Bilirubin Negative (NEGATIVE) 03/09/17 05:06 Urine Urobilinogen Normal mg/dL (0.2-1.0) 03/09/17 05:06 Ur Leukocyte Esterase Neg Nishant/uL (Negative) 03/09/17 05:06 Urine WBC (Auto) 1 /hpf (0-5) 03/09/17 05:06 Urine RBC (Auto) 7 /hpf (0-3) H 03/09/17 05:06 Ur Squamous Epith Cells < 1 /hpf (0-5) 03/09/17 05:06 - Hospital Course Hospital Course: admited esn by multiple dr including jamal jacquse for pneumonia sputum normal harinder will dischragedona ugemntin to come back to see md in next 48 hours wind followupwith urology for mass onkdiney pt been told multple times about mass on kdiney for which pt need to see dr. rossi Discharge Exam - Head Exam Head Exam: ATRAUMATIC, NORMAL INSPECTION, NORMOCEPHALIC - Eye Exam Eye Exam: EOMI, Normal appearance, PERRL Pupil Exam: NORMAL ACCOMODATION, PERRL - ENT Exam ENT Exam: Normal Exam - Neck Exam Neck exam: Full Rom - Respiratory Exam Respiratory Exam: Decreased Breath Sounds - Cardiovascular Exam Cardiovascular Exam: REGULAR RHYTHM, +S1, +S2 - GI/Abdominal Exam GI & Abdominal Exam: Diminished Bowel Sounds, Firm, Soft - Rectal Exam Rectal Exam: Deferred - Neurological Exam Neurological exam: Oriented x3 Discharge Plan - Follow Up Plan Condition: FAIR Disposition: HOME/ ROUTINE Instructions: Community Acquired Pneumonia (DC), Community Acquired Pneumonia ( GEN), Bacterial Pneumonia (DC), Bacterial Pneumonia (GEN), Acute Abdominal Pain (DC), Acute Abdominal Pain (GEN) Clinical Quality Measures - CQM - VTE Did patient receive overlap therapy during hosptialization?: Yes - Date & Time of Discharge Summary Date of Discharge Summary: 03/16/17 Time of Discharge Summary: 16:00
[2017-03-16 15:53] VITALS: BP 141/63; PULSE 62; TEMP 97.3
== END 2017-03-16 18:09 | disposition home or self-care (01) | DRG 195 ==
LOC: C.ER 03:07 → C.9E 04:56 → C.5T 14:25
PROVIDERS: ADMIT Internal Medicine Nephrology; ATTEND Internal Medicine Nephrology
DX: J18.9 Pneumonia, unspecified organism (principal); C61 Malignant neoplasm of prostate; E11.22 Type 2 diabetes mellitus with diabetic chronic kidney disease; R06.00 Dyspnea, unspecified; R31.29 Other microscopic hematuria; I12.9 Hypertensive chronic kidney disease with stage 1 through stage 4 chronic kidney disease, or unspecified chronic kidney disease; I25.10 Atherosclerotic heart disease of native coronary artery without angina pectoris; N18.9 Chronic kidney disease, unspecified; N40.0 Benign prostatic hyperplasia without lower urinary tract symptoms; E78.00 Pure hypercholesterolemia, unspecified; Z86.73 Personal history of transient ischemic attack (TIA), and cerebral infarction without residual deficits; Z95.5 Presence of coronary angioplasty implant and graft; Z87.442 Personal history of urinary calculi; Z79.84 Long term (current) use of oral hypoglycemic drugs; Z90.49 Acquired absence of other specified parts of digestive tract

== ENCOUNTER 2017-03-25 18:40 | Inpatient (IN) | payer OTHER ==
[2017-03-25 18:40] VITALS: BMI 37.8
[2017-03-25 18:57] VITALS: RESP 20
--- NOTE | 2017-03-25 19:17 | C.PDOC ---
History Of Present Illness A 81 y/o male with a Hx of pneumonia, presents to the ER c/o shortness of breath that began today. Pt notes associated whitish sputum. Pt reports taking antibiotics but stopped taking them a week ago because it was "bothering his stomach". Pt denies fever, chills, nausea, vomiting, chest pain, or any other complaints. Time Seen by Provider: 03/25/17 19:17 History Per: Patient History/Exam Limitations: no limitations Onset/Duration Of Symptoms: Hrs Current Symptoms Are (Timing): Still Present Severity: Mild Associated Symptoms: Other (Whitish sputum). denies: Fever, Chills, Chest Pain Recent travel outside of the [place]: No Additional History Per: Patient Past Medical History Reviewed: Historical Data, Nursing Documentation, Vital Signs Vital Signs: Last Vital Signs Temp 97.7 F 03/25/17 18:57 Pulse 91 H 03/25/17 19:34 Resp 20 03/25/17 19:34 BP 146/70 03/25/17 19:34 Pulse Ox 99 03/25/17 19:55 - Medical History PMH: Benign Prostatic Hyperplasia, CAD, Diabetes (Blood sugar 119), Diverticulitis, HTN, Hypercholesterolemia, Kidney Stones, Chronic Kidney Disease , TIA Surgical History: Cholecystectomy, Coronary Stent (2007) - [facility] Procedures CORONAR ARTERIOGR-2 CATH (05/06/14) ESOPHAGOGASTRODUODENOSCOPY [EGD] W/CLOSED BIOPSY (05/06/14) IRRIGATION OF EAR (02/13/14) LEFT HEART CARDIAC CATH (05/06/14) LT HEART ANGIOCARDIOGRAM (05/06/14) Family History: States: Unknown Family Hx - Social History Hx Tobacco Use: No Hx Alcohol Use: No Hx Substance Use: No - Immunization History Hx Tetanus Toxoid Vaccination: No Hx Influenza Vaccination: No Hx Pneumococcal Vaccination: No Review Of Systems Except As Marked, All Systems Reviewed And Found Negative. Constitutional: Negative for: Fever, Chills Cardiovascular: Negative for: Chest Pain Respiratory: Positive for: Shortness of Breath, Other (Producing whitish sputum) Gastrointestinal: Negative for: Nausea, Vomiting Physical Exam - Physical Exam Appears: Non-toxic, No Acute Distress Skin: Warm, Dry Head: Atraumatic, Normacephalic Eye(s): bilateral: Normal Inspection Oral Mucosa: Moist Throat: Normal, No Exudate Neck: Supple Chest: Symmetrical, Other (CABG scar left chest) Cardiovascular: Rhythm Regular, No Murmur Respiratory: No Rales, Rhonchi (Rhonchi at the bases), No Wheezing Neurological/Psych: Oriented x3, Normal Speech, Normal Cognition, Other (No focal deficit) Gait: Steady ED Course And Treatment - Laboratory Results Result Diagrams: 03/25/17 19:31 03/25/17 19:31 ECG: Interpreted By Me ECG Rhythm: Nonspecific Changes O2 Sat by Pulse Oximetry: 99 (RA) Pulse Ox Interpretation: Normal - Radiology CXR: Interpreted by Me, Viewed By Me CXR Interpretation: Yes: Other (r hilar prominence, unchanged from 03/09/17). No : Infiltrates, Fracture, Pnemothorax Disposition Discussed With Dr.: Juan Luis Hong Comment: accepted the pt on his service and took over the care at 8:46 PM Doctor Will See Patient In The: Hospital Counseled Patient/Family Regarding: Studies Performed, Diagnosis - Disposition Disposition: HOSPITALIZED Disposition Time: 19:17 Condition: FAIR - POA Present On Arrival: None - Clinical Impression Clinical Impression: Dyspnea, Bronchitis - Scribe Statement The provider has reviewed the documentation as recorded by the Scribe Funmilayo purdy All medical record entries made by the Scribe were at my direction and personally dictated by me. I have reviewed the chart and agree that the record accurately reflects my personal performance of the history, physical exam, medical decision making, and the department course for this patient. I have also personally directed, reviewed, and agree with the discharge instructions and disposition. Decision To Admit - Pt Status Changed To: Hospital Disposition Of: Inpatient - Admit Certification Admit to Inpatient:: After my assessment, the patient will require hospitalization for at least two midnights. This is because of the severity of symptoms shown, intensity of services needed, and/or the medical risk in this patient being treated as an outpatient. - InPatient: Physician Admission Certification: I certify that this patient requires 2 or more midnights of care for the following reason:: After my assessment, the patient will require hospitalization for at least two midnights. This is because of the severity of symptoms shown, intensity of services needed, and/or the medical risk in this patient being treated as an outpatient. - . Bed Request Type: Regular Admitting Physician: Juan Luis Hong Patient Diagnosis: Dyspnea, Bronchitis, Fever
[2017-03-25] MEDS: Albuterol-Ipratrop 3 mg / 0.5 (3 ml) UD IH SCH ×3 (19:30→20:00)
[2017-03-25 19:42] LABS: CHLORIDE 101 mmol/L (98-107); SODIUM 135 mmol/L (132-148)
[2017-03-25 19:43] LABS: POTASSIUM 4.7 mmol/L (3.6-5.2)
[2017-03-25 19:44] LABS: BILIRUBIN,TOTAL 1.7 mg/dL (0.2-1.3); CARBON DIOXIDE 23 mmol/L (22-30); GFR AFRICAN-AMERICAN > 60
[2017-03-25 19:45] LABS: ALB/GLOB RATIO 1.3 (1.0-2.1); ALKALINE PHOSPHATASE 73 U/L (38-126); ALT/SGPT 26 U/L (21-72); AST/SGOT 45 U/L (17-59); BLOOD UREA NITROGEN 16 mg/dL (9-20); CALCIUM 8.4 mg/dl (8.6-10.4); GLUCOSE,RANDOM 108 mg/dL (75-110); TOTAL PROTEIN 7.9 g/dL (6.3-8.3)
[2017-03-25 19:46] LABS: MAGNESIUM 2.2 mg/dL (1.6-2.3)
[2017-03-25 19:57] LABS: BASO % 0.6 % (0.0-2.0); EOS # 0.1 K/uL (0.0-0.7); EOS % 2.2 % (0.0-4.0); HEMATOCRIT 42.4 % (35.0-51.0); LYMPH # 1.3 K/uL (1.0-4.3); LYMPH % 28.5 % (20.0-40.0); MEAN CELL VOLUME 95.7 fL (80.0-94.0); MEAN CORPUSCULAR HEMOGLOBIN 31.8 pg (27.0-31.0); MEAN CORPUSCULAR HGB CONC 33.2 g/dL (33.0-37.0); MEAN PLATELET VOLUME 8.1 fL (7.2-11.7); MONO # 0.6 K/uL (0.0-0.8); MONO % 12.7 % (0.0-10.0); NRBC % 0.2 % (0.0-2.0); RED CELL DISTRIBUTION WIDTH 14.7 % (11.5-14.5); WHITE BLOOD COUNT 4.6 K/uL (4.8-10.8)
[2017-03-25 20:15] LABS: ABG ALLEN TEST POS; DRAW SITE RBA
[2017-03-25] MEDS ORDERED: Albuterol-Ipratrop 3 mg / 0.5 (3 ml) UD ONE (20:48)
[2017-03-25] MEDS ORDERED: cefTRIAXone IV 1 gm in Dextros 50 ML IVPB ONE ×2 (20:52→22:05)
[2017-03-25] MEDS ORDERED: Azithromycin 500mg/250ML NS 500 MG/250 ML BAG IVPB ONE ×2 (21:00→22:06)
--- NOTE | 2017-03-26 08:20 | RAD ---
PROCEDURE: CHEST RADIOGRAPH, 1 VIEW HISTORY: Shortness of breath COMPARISON: None available. FINDINGS: LUNGS: Mild venous congestion. Right hilar prominence. Patchy left basilar airspace opacity with trace left pleural effusion. PLEURA: As above. CARDIOVASCULAR: Status post median sternotomy and CABG. Tortuous aorta. OSSEOUS STRUCTURES: No significant abnormalities. VISUALIZED UPPER ABDOMEN: Normal. OTHER FINDINGS: None. IMPRESSION: Mild venous congestion. Right hilar prominence. Patchy left basilar airspace opacity with trace left pleural effusion.
--- NOTE | 2017-03-26 08:29 | CP.PCM.HP ---
History of Present Illness - History of Present Illness History of Present Illness: 81-year-old male patient with past medical history of pneumonia, diabetes, diverticulitis, hypertension, hypercholesterolemia, kidney stone, CKD, BPH, TIA , who presented to the ER with complaint of shortness of breath that began today. Patient notes associated whitish sputum. Patient reports taking up antibiotic but stopped taking them a week ago because it was bothering his stomach. Patient denies fever, chills, nausea, vomiting, chest pain or any other complaints. Present on Admission - Present on Admission Any Indicators Present on Admission: No Past Patient History - Infectious Disease Hx of Infectious Diseases: None - Past Medical History & Family History Past Medical History?: Yes - Past Social History Smoking Status: Former Smoker - CARDIAC Hx Hypercholesterolemia: Yes Hx Hypertension: Yes - PULMONARY Hx Respiratory Disorders: Yes Hx Respiratory Tract Infection: Yes (UPPER) - NEUROLOGICAL Hx Transient Ischemic Attacks (TIA): Yes - HEENT Hx HEENT Problems: Yes Other/Comment: impacted cerumen, otalgia - RENAL Hx Chronic Kidney Disease: Yes Hx Kidney Stones: Yes - ENDOCRINE/METABOLIC Hx Endocrine Disorders: Yes Hx Diabetes Mellitus Type 2: Yes - HEMATOLOGICAL/ONCOLOGICAL Hx Blood Disorders: No - INTEGUMENTARY Hx Dermatological Problems: No - MUSCULOSKELETAL/RHEUMATOLOGICAL Hx Falls: Yes - GASTROINTESTINAL Hx Diverticulitis: Yes - GENITOURINARY/GYNECOLOGICAL Hx Genitourinary Disorders: Yes Hx Prostate Problems: Yes - PSYCHIATRIC Hx Psychophysiologic Disorder: No Hx Substance Use: No - SURGICAL HISTORY Hx Surgeries: Yes Hx Cholecystectomy: Yes Hx Coronary Stent: Yes (2007) - ANESTHESIA Hx Anesthesia: Yes Hx Anesthesia Reactions: No Hx Malignant Hyperthermia: No Meds Allergies/Adverse Reactions: Allergies Allergy/AdvReac Type Severity Reaction Status Date / Time clopidogrel bisulfate Allergy Mild ITCHING Verified 06/12/17 10:06 [From Plavix] moxifloxacin HCl Allergy Mild ITCHING Verified 06/12/17 10:06 [From Avelox] Physical Exam - Constitutional Appears: Well - Head Exam Head Exam: ATRAUMATIC, NORMAL INSPECTION, NORMOCEPHALIC - Eye Exam Eye Exam: EOMI, Normal appearance, PERRL Pupil Exam: NORMAL ACCOMODATION, PERRL - ENT Exam ENT Exam: Mucous Membranes Moist, Normal Exam - Neck Exam Neck exam: Positive for: Normal Inspection - Respiratory Exam Respiratory Exam: Decreased Breath Sounds - Cardiovascular Exam Cardiovascular Exam: REGULAR RHYTHM, +S1, +S2 - GI/Abdominal Exam GI & Abdominal Exam: Diminished Bowel Sounds, Soft - Rectal Exam Rectal Exam: Deferred Results - Vital Signs Recent Vital Signs: Last Vital Signs Temp 97.5 F L 03/26/17 00:30 Pulse 101 H 03/26/17 00:30 Resp 20 03/26/17 00:30 BP 153/81 H 03/26/17 00:30 Pulse Ox 98 03/26/17 00:30 - Labs Result Diagrams: 03/25/17 19:31 03/25/17 19:31 Labs: Laboratory Results - last 24 hr 03/25/17 22:01 POC Glucose (mg/dL) 108 Assessment & Plan (1) Abdominal pain, acute, left lower quadrant Status: Acute (2) Acute upper respiratory infection Status: Acute (3) Bronchitis Status: Acute (4) COPD exacerbation Status: Acute (5) Cough Status: Acute (6) Drainage of external ear Status: Acute (7) Dysphagia Status: Acute (8) Dyspnea Status: Acute (9) Fever Status: Acute (10) H/O prostate biopsy Status: Acute (11) Headache Status: Acute (12) Impacted cerumen Status: Acute (13) Otalgia Status: Acute (14) Pneumonia Status: Acute - Assessment and Plan (Free Text) Plan: protnix/lovenox asp rocepine/zithromax utrology consult for renal mass pulm for bronchitis
[2017-03-26 08:47] VITALS: O2SAT 96
[2017-03-26] MEDS ORDERED: cefTRIAXone IV 1 gm in Dextros 1 GM in Dextrose 5% In Water 50 ML IVPB SCH (10:00)
[2017-03-26] MEDS ORDERED: Enoxaparin 40 mg Syringe SC SCH (10:00)
--- NOTE | 2017-03-26 10:28 | CP.PCM.PN ---
Subjective - Date & Time of Evaluation Date of Evaluation: 03/26/17 Time of Evaluation: 13:20 - Subjective Subjective: clinically same Objective - Vital Signs/Intake and Output Vital Signs (last 24 hours): Temp Pulse Resp BP Pulse Ox 97.8 F 83 20 133/72 96 03/26/17 08:46 03/26/17 08:46 03/26/17 08:46 03/26/17 08:46 03/26/17 08:46 - Medications Medications: Current Medications Aspirin (Ecotrin) 81 mg PO DAILY [facility] Last Admin: 03/26/17 10:06 Dose: 81 mg Enoxaparin Sodium (Lovenox) 40 mg SC DAILY [facility] Last Admin: 03/26/17 10:06 Dose: 40 mg Finasteride (Proscar) 5 mg PO DAILY [facility] Ceftriaxone Sodium (Rocephin Iv 1 Gm Duplex) 50 mls @ 100 mls/hr IVPB Q24H [facility] Azithromycin 500 mg/ Sodium (Chloride) 250 mls @ 167 mls/hr IVPB Q24H [facility] Metoprolol Tartrate (Lopressor) 50 mg PO BID [facility] Last Admin: 03/26/17 10:06 Dose: 50 mg Rosuvastatin Calcium (Crestor) 10 mg PO HS [facility] - Labs Labs: PT 10.6 SECONDS (9.7-12.2) 03/25/17 19:31 INR 1.0 03/25/17 19:31 APTT 26 SECONDS (21-34) 03/25/17 19:31 - Constitutional Appears: Well - Head Exam Head Exam: ATRAUMATIC, NORMAL INSPECTION, NORMOCEPHALIC - Eye Exam Eye Exam: EOMI, Normal appearance, PERRL Pupil Exam: NORMAL ACCOMODATION, PERRL - ENT Exam ENT Exam: Mucous Membranes Moist, Normal Exam - Neck Exam Neck Exam: Full ROM, Normal Inspection. absent: Lymphadenopathy - Respiratory Exam Respiratory Exam: Decreased Breath Sounds - Cardiovascular Exam Cardiovascular Exam: REGULAR RHYTHM, +S1, +S2 - GI/Abdominal Exam GI & Abdominal Exam: Soft, Diminished Bowel Sounds - Rectal Exam Rectal Exam: Deferred Assessment and Plan - Assessment and Plan (Free Text) Plan: Consult pulmonology Continue antibiotic as prescribed
--- NOTE | 2017-03-26 16:35 | CP.PCM.CON ---
History of Present Illness - History of Present Illness History of Present Illness: Reason for consultation: shortness of breath 81-year-old male who was recently treated for pneumonia and hemoptysis presented to emergency room, c/o shortness of breath that began. Pt noted associated whitish sputum. Pt reports taking antibiotics but stopped taking them a week ago because it was "bothering his stomach". Pt denies fever, chills , nausea, vomiting, chest pain, or any other complaints. Review of Systems - Review of Systems All systems: reviewed and no additional remarkable complaints except (shortness of breath and cough) Past Patient History - Infectious Disease Hx of Infectious Diseases: None - Past Medical History & Family History Past Medical History?: Yes - Past Social History Smoking Status: Former Smoker - CARDIAC Hx Hypercholesterolemia: Yes Hx Hypertension: Yes - PULMONARY Hx Respiratory Disorders: Yes Hx Respiratory Tract Infection: Yes (UPPER) - NEUROLOGICAL Hx Transient Ischemic Attacks (TIA): Yes - HEENT Hx HEENT Problems: Yes Other/Comment: impacted cerumen, otalgia - RENAL Hx Chronic Kidney Disease: Yes Hx Kidney Stones: Yes - ENDOCRINE/METABOLIC Hx Endocrine Disorders: Yes Hx Diabetes Mellitus Type 2: Yes - HEMATOLOGICAL/ONCOLOGICAL Hx Blood Disorders: No - INTEGUMENTARY Hx Dermatological Problems: No - MUSCULOSKELETAL/RHEUMATOLOGICAL Hx Falls: Yes - GASTROINTESTINAL Hx Diverticulitis: Yes - GENITOURINARY/GYNECOLOGICAL Hx Genitourinary Disorders: Yes Hx Prostate Problems: Yes - PSYCHIATRIC Hx Psychophysiologic Disorder: No Hx Substance Use: No - SURGICAL HISTORY Hx Surgeries: Yes Hx Cholecystectomy: Yes Hx Coronary Stent: Yes (2007) - ANESTHESIA Hx Anesthesia: Yes Hx Anesthesia Reactions: No Hx Malignant Hyperthermia: No Meds Allergies/Adverse Reactions: Allergies Allergy/AdvReac Type Severity Reaction Status Date / Time clopidogrel bisulfate Allergy Mild ITCHING Verified 02/26/17 07:54 [From Plavix] moxifloxacin HCl Allergy Mild ITCHING Verified 02/26/17 07:54 [From Avelox] - Medications Medications: Current Medications Aspirin (Ecotrin) 81 mg PO DAILY [facility] Last Admin: 03/26/17 10:06 Dose: 81 mg Enoxaparin Sodium (Lovenox) 40 mg SC DAILY [facility] Last Admin: 03/26/17 10:06 Dose: 40 mg Finasteride (Proscar) 5 mg PO DAILY [facility] Last Admin: 03/26/17 10:46 Dose: 5 mg Ceftriaxone Sodium (Rocephin Iv 1 Gm Duplex) 50 mls @ 100 mls/hr IVPB Q24H [facility] Azithromycin 500 mg/ Sodium (Chloride) 250 mls @ 167 mls/hr IVPB Q24H [facility] Metoprolol Tartrate (Lopressor) 50 mg PO BID [facility] Last Admin: 03/26/17 10:06 Dose: 50 mg Rosuvastatin Calcium (Crestor) 10 mg PO [facility] Physical Exam - Head Exam Head Exam: ATRAUMATIC, NORMOCEPHALIC - Eye Exam Eye Exam: Normal appearance - ENT Exam ENT Exam: Mucous Membranes Moist - Neck Exam Neck exam: Positive for: Normal Inspection - Respiratory Exam Respiratory Exam: Clear to Auscultation Bilateral - Cardiovascular Exam Cardiovascular Exam: REGULAR RHYTHM - GI/Abdominal Exam GI & Abdominal Exam: Normal Bowel Sounds, Soft - Extremities Exam Extremities exam: Positive for: normal inspection - Neurological Exam Neurological exam: Alert, Oriented x3 Results - Vital Signs Recent Vital Signs: Last Vital Signs Temp 97.8 F 03/26/17 08:46 Pulse 83 03/26/17 08:46 Resp 20 03/26/17 08:46 BP 133/72 03/26/17 08:46 Pulse Ox 96 03/26/17 08:46 - Labs Result Diagrams: 03/25/17 19:31 03/25/17 19:31 Labs: Laboratory Results - last 24 hr 03/25/17 22:01 POC Glucose (mg/dL) 108 Assessment & Plan (1) Pneumonia Status: Acute Comment: chest x-ray consistent with left basilar infiltrate. Continue antibiotics. Shortness of breath with history of smoking most likely secondary to COPD (2) COPD exacerbation Status: Acute
[2017-03-26 18:09] VITALS: BP 113/66; TEMP 97.5
[2017-03-26] MEDS: Albuterol-Ipratrop 3 mg / 0.5 (3 ml) UD INH SCH (20:01)
[2017-03-26 20:07] VITALS: PULSE 68
--- NOTE | 2017-03-26 20:19 | CON ---
DATE: 03/26/2017 REASON FOR CONSULTATION: BPH and prostate cancer. HISTORY OF PRESENT ILLNESS: The patient was recently admitted for acute onset of dyspnea and acute b ronchitis. The patient had difficulty breathing late yesterday afternoon, requiring him to eventuall y come to [facility] for treatment. The patient was admitted for treatment of ac catracho bronchitis and dyspnea. The patient was recently diagnosed with low risk prostate cancer [place] 6 (3+3) and is currently awaiting to discuss eventual treatment. The patient currently is voiding w ith his usual normal stream. He has no dysuria, gross hematuria, renal colic, or abdominal pain. Th e patient has had multiple admissions for pulmonary pathology. Status post his MRI/US TRUS-[id number] with [facility] done at the [facility] in [place] more than 1 month ago. The patient has neve r had a finding of urosepsis, although this was the initial presumptive diagnosis after his first adm ission post TRUS-Bx when he spiked a temperature to over 102. The patient's only symptoms are relate d to his pulmonary pathology. PHYSICAL EXAMINATION: VITAL SIGNS: His temperature today is 97.8. His pulse rate is 83. His blood pressure is 133/72. H is respiratory rate is 20 and his O2 sat on room air is 96%. ABDOMEN: Soft, not distended or tender. No CVA tenderness. No suprapubic tenderness. RECTAL: He has normal rectal tone without fluctuance or masses. Prostate is slightly enlarged, smoo th, symmetrical, nontender without nodules or indurations with a palpable median sulcus. LABORATORY DATA: Laboratory evaluation on 03/25/2017 shows a CBC with a WBC count of 4.6, hemoglobin of 14.1, hematocrit of 42.4, and a platelet count of 176,000. His coag profile: PT is 10.6, INR 1. 0 and PTT is 26. His chem profile shows a sodium of 135, potassium 4.7, chloride 101, CO2 of 23. BU N and creatinine of 16 and 1.0 respectively with a GFR of greater than 60. Random glucose is 108. C alcium is 8.4. The remainder of his comprehensive metabolic profile is normal. DIAGNOSTIC IMPRESSION: 1. Prostate cancer as his urologic diagnosis. 2. Pulmonary pathology. Efra Jha MD cc: [id number] TT: 03/26/2017 20:18:21 Confirmation # [id number] Dictation # [id number]
[2017-03-26] MEDS ORDERED: cefTRIAXone IV 1 gm in Dextros 50 ML IVPB SCH (22:00)
[2017-03-26] MEDS ORDERED: MethylPREDNISolone 40 mg Vial IVP SCH (22:00)
[2017-03-26] MEDS ORDERED: Azithromycin 500 MG in Sodium Chloride 0.9% 250 ML IVPB SCH (23:00)
--- NOTE | 2017-03-27 00:24 | CARD ---
APPROVED REPORT EKG Measurement Heart [id number] <Conclusion> Normal sinus rhythm Right bundle branch block Abnormal ECG
[2017-03-27] MEDS: Albuterol-Ipratrop 3 mg / 0.5 (3 ml) UD INH SCH (01:40)
== END 2017-03-27 18:00 | disposition home or self-care (01) | DRG 190 ==
LOC: C.ER 18:40 → C.9E 20:49 → C.5T 22:13
PROVIDERS: ADMIT Internal Medicine Nephrology; ATTEND Internal Medicine Nephrology
DX: J44.0 Chronic obstructive pulmonary disease with (acute) lower respiratory infection (principal); J18.9 Pneumonia, unspecified organism; E11.9 Type 2 diabetes mellitus without complications; C61 Malignant neoplasm of prostate; J44.1 Chronic obstructive pulmonary disease with (acute) exacerbation; I10 Essential (primary) hypertension; Z95.5 Presence of coronary angioplasty implant and graft; Z86.73 Personal history of transient ischemic attack (TIA), and cerebral infarction without residual deficits; Z87.891 Personal history of nicotine dependence

== ENCOUNTER 2017-06-12 08:44 | Emergency (ER) | payer OTHER ==
[2017-06-12 09:59] VITALS: BMI 21.9
--- NOTE | 2017-06-12 10:07 | C.PDOC ---
History Of Present Illness A 81 y/o M with a Hx of prostate cancer and is currently under radiation, c/o cough for 1 month. Patient was scheduled to visit his PMD for radiation today. While waiting at a bus stop today the patient began coughing, where a bystander passing by noticed he was coughing and suggested for him to visit the ER. Denies chest pain, sore throat, ear pain, fever, chills, SOB, or any other complaints. Currently patient is refusing XRAY and does not want treatment in the ER. Time Seen by Provider: 06/12/17 09:16 Chief Complaint (Nursing): ENT Problem History Per: Patient History/Exam Limitations: no limitations Onset/Duration Of Symptoms: Days Current Symptoms Are (Timing): Still Present Severity: Mild Reports Recently: Treated By A Physician Recent travel outside of the [place]: No Additional History Per: Patient Past Medical History Reviewed: Historical Data, Nursing Documentation, Vital Signs Vital Signs: Last Vital Signs Temp 98.0 F 06/12/17 10:19 Pulse 82 06/12/17 10:19 Resp 17 06/12/17 10:19 BP 143/71 06/12/17 10:19 Pulse Ox 95 06/12/17 10:38 - Medical History PMH: Benign Prostatic Hyperplasia, CAD, Diabetes (Blood sugar 119), Diverticulitis, HTN, Hypercholesterolemia, Kidney Stones, Chronic Kidney Disease , TIA Surgical History: Cholecystectomy, Coronary Stent (2007) - [employer] Procedures CORONAR ARTERIOGR-2 CATH (05/06/14) ESOPHAGOGASTRODUODENOSCOPY [EGD] W/CLOSED BIOPSY (05/06/14) IRRIGATION OF EAR (02/13/14) LEFT HEART CARDIAC CATH (05/06/14) LT HEART ANGIOCARDIOGRAM (05/06/14) Family History: States: Unknown Family Hx - Social History Hx Tobacco Use: No Hx Alcohol Use: No Hx Substance Use: No - Immunization History Hx Tetanus Toxoid Vaccination: No Hx Influenza Vaccination: No Hx Pneumococcal Vaccination: No Review Of Systems Except As Marked, All Systems Reviewed And Found Negative. Constitutional: Negative for: Fever, Chills ENT: Negative for: Ear Pain, Throat Pain, Throat Swelling Cardiovascular: Negative for: Chest Pain Respiratory: Positive for: Cough (x 1 month). Negative for: Shortness of Breath , SOB with Excertion, Pleuritic Pain, Sputum, Wheezing Gastrointestinal: Negative for: Nausea, Vomiting, Abdominal Pain, Diarrhea, Constipation Genitourinary: Negative for: Dysuria Musculoskeletal: Negative for: Neck Pain Skin: Negative for: Rash Neurological: Negative for: Weakness, Numbness, Altered Mental Status, Headache Physical Exam - Physical Exam Appears: Well, Non-toxic, No Acute Distress Skin: Warm, Dry Head: Atraumatic, Normacephalic Eye(s): bilateral: Normal Inspection, PERRL, EOMI Oral Mucosa: Moist Throat: Normal, No Erythema, No Exudate Neck: Normal, Supple Cardiovascular: Rhythm Regular Respiratory: Normal Breath Sounds, No Accessory Muscle Use, No Rales, No Rhonchi , No Wheezing Gastrointestinal/Abdominal: Soft, No Tenderness, No Mass, No Distention Back: Normal Inspection Extremity: Normal ROM (x4), No Pedal Edema, No Calf Tenderness, Capillary Refill (<2secs) Neurological/Psych: Oriented x3, Normal Speech, Normal Cognition Gait: Steady ED Course And Treatment O2 Sat by Pulse Oximetry: 95 (RA) Pulse Ox Interpretation: Normal Medical Decision Making Medical Decision Making: Impression: A 81 y/o M c/o cough for a month. Hx of prostate cancer. Currently on radiation. Currently refusing treatment in the ER. 10:02. Spoke to Dr. Gonzales who will evaluate patient in his office now. Dr. Gonzales reports that he will send patient back to ED if there is any need for emergent treatment. Patient instructed to go directly to his PMD for evaluation. Disposition - Disposition Disposition: HOME/ ROUTINE Disposition Time: 10:07 Condition: GOOD Additional Instructions: GO DIRECTLY TO DR. ARZOLA OFFICE. RETURN TO ED IF CONDITION WORSENS Forms: [facility] (Japanese) - Clinical Impression Clinical Impression: Cough - Scribe Statement The provider has reviewed the documentation as recorded by the Scribe Tata purdy All medical record entries made by the Brandiibchuck were at my direction and personally dictated by me. I have reviewed the chart and agree that the record accurately reflects my personal performance of the history, physical exam, medical decision making, and the department course for this patient. I have also personally directed, reviewed, and agree with the discharge instructions and disposition.
[2017-06-12 10:20] VITALS: BP 143/71; PULSE 82; RESP 17; TEMP 98
[2017-06-12 10:31] VITALS: O2SAT 95
== END 2017-06-12 10:39 | disposition home or self-care (01) ==
LOC: C.ER 08:44
DX: R05 Cough (principal)

== ENCOUNTER → 2017-08-18 | Day surgery (SDC) | payer OTHER | END | disposition home or self-care (01) | LOC: C.CATHLAB 11:51 | PROVIDERS: ATTEND Internal Medicine | DX: R42 Dizziness and giddiness (principal); R55 Syncope and collapse; Z53.9 Procedure and treatment not carried out, unspecified reason ==

== ENCOUNTER → 2017-08-20 | Day surgery (SDC) | payer OTHER ==
--- NOTE | 2017-08-21 06:56 | CARDCATH ---
DATE: 08/20/2017 INDICATIONS: Recurrent dizziness. PROCEDURE: Tilt table test. DESCRIPTION OF THE PROCEDURE: The patient was put on the table and tilted at 30 degrees for 5 minutes and 60 degrees for 15 minutes. Blood pressure and heart rate response were monitored every 2 minutes. The patient tolerated the procedure well. No symptoms were reported during the test. IMPRESSION: Appropriate blood pressure and heart rate response during the tilt table test. Asymptomatic throughout the test. Angelique Gonzales MD
== END | disposition home or self-care (01) ==
LOC: C.CATHLAB 08:23
PROVIDERS: ATTEND Internal Medicine
DX: R55 Syncope and collapse (principal); R42 Dizziness and giddiness

== ENCOUNTER 2018-11-21 12:05 | Emergency (ER) | payer MEDICARE, OTHER ==
[2018-11-21 12:06] VITALS: BMI 21.9
[2018-11-21] MEDS ORDERED: PROPARACAINE/FLUORESCEIN SOD 100 DROP/5 ML BOTTLE OS STA (12:28)
[2018-11-21] MEDS ORDERED: Tdap Vaccine 0.5 ml Vial (10-64 yrs) IM ONE ×2 (12:29→12:37)
[2018-11-21] MEDS ORDERED: Fluorescein 1 mg Ophthalmic Strip ONE (12:36)
--- NOTE | 2018-11-21 13:08 | C.PDOC ---
History Of Present Illness 83 y/o male pt presents to the ER c/o left eye pain. Pt reports he was rubbing his eye with his finger when he accidentally scratched his left eye. Patient denies blurry vision, headache and change in vision. +photophobia. Time Seen by Provider: 11/21/18 12:15 Chief Complaint (Nursing): Eye Problem History Per: Patient History/Exam Limitations: no limitations Onset/Duration Of Symptoms: Hrs Current Symptoms Are (Timing): Still Present Past Medical History Reviewed: Historical Data, Nursing Documentation, Vital Signs Vital Signs: Last Vital Signs Temp 97.5 F L 11/21/18 12:07 Pulse 80 11/21/18 12:07 Resp 20 11/21/18 12:07 BP 179/92 H 11/21/18 12:07 Pulse Ox 100 11/21/18 12:07 - Medical History PMH: Benign Prostatic Hyperplasia, CAD, Diabetes (Blood sugar 119), Diverticulitis, HTN, Hypercholesterolemia, Kidney Stones, Pneumonia, Chronic Kidney Disease, TIA Surgical History: Cholecystectomy, Coronary Stent (2007) - [employer] Procedures CORONAR ARTERIOGR-2 CATH (05/06/14) ESOPHAGOGASTRODUODENOSCOPY [EGD] W/CLOSED BIOPSY (05/06/14) IRRIGATION OF EAR (02/13/14) LEFT HEART CARDIAC CATH (05/06/14) LT HEART ANGIOCARDIOGRAM (05/06/14) Family History: States: Unknown Family Hx - Social History Hx Tobacco Use: No Hx Alcohol Use: No Hx Substance Use: No - Immunization History Hx Tetanus Toxoid Vaccination: No Hx Influenza Vaccination: No Hx Pneumococcal Vaccination: No Review Of Systems Eyes: Positive for: Pain, Redness, Other (photphobia). Negative for: Vision Change ENT: Negative for: Ear Pain, Mouth Pain, Throat Pain Cardiovascular: Negative for: Chest Pain Skin: Positive for: Other (left conjunctival erythema) Neurological: Negative for: Weakness, Numbness, Headache Physical Exam - Physical Exam Appears: Non-toxic, No Acute Distress, Other (anxious) Skin: Warm, Dry Head: Atraumatic, Normacephalic Eye(s): bilateral: PERRL, EOMI, left: Photophobia, Other (erythematous medial aspect of conjunctiva; subconjunctival hemorrhage) Neurological/Psych: Oriented x3, Normal Speech ED Course And Treatment O2 Sat by Pulse Oximetry: 100 (RA) Pulse Ox Interpretation: Normal Medical Decision Making Medical Decision Making: Impression: corneal abrasion Plans: -- Tylenol -- Flucaine eye drops -- tetanus shot -- treated for corneal abrasion Pt had slight uptake of fluorescein at 9 o'clock position. Patient tolerated procedure. Reassess: On reassessment, patient is resting comfortably, and is in no acute distress. Patient was instructed the use of prescribed eye drops given and to follow up with Dr. Gavin in 1-2 days for further evaluation. Disposition Counseled Patient/Family Regarding: Studies Performed, Diagnosis, Need For Followup, Rx Given - Disposition Referrals: Darryn Gavin MD [Staff Provider] - Disposition: HOME/ ROUTINE Disposition Time: 13:08 Condition: GOOD Additional Instructions: Use one drop in left eye every 6 hours. Follow up with Dr Gavin (eye doctor) in 1-2 days. Take Tylenol if needed for pain. The redness in the medial part of left eye may take a few weeks to go away. Return to ER for any worse pain, change in vision or any other concerns. Antibiotic eye drop sent to your pharmacy. Prescriptions: Polymyxin/Trimethoprim Sulfate [Polytrim Ophth Soln] 1 drop OS QID #1 bottle Instructions: Corneal Abrasion (DC), Subconjunctival Hemorrhage Forms: [facility] (Lao), General Discharge Instructions - Clinical Impression Clinical Impression: Corneal abrasion, Subconjunctival hemorrhage of left eye - PA / CHEMISTRY INTERN / Resident Statement / has reviewed & agrees with the documentation as recorded. - Scribe Statement The provider has reviewed the documentation as recorded by the Odell Barron Do All medical record entries made by the Scribe were at my direction and personally dictated by me. I have reviewed the chart and agree that the record accurately reflects my personal performance of the history, physical exam, medical decision making, and the department course for this patient. I have also personally directed, reviewed, and agree with the discharge instructions and disposition.
[2018-11-21 13:25] VITALS: BP 159/67; PULSE 70; RESP 18; TEMP 98.4
[2018-11-21 13:49] VITALS: O2SAT 100
== END 2018-11-21 13:25 | disposition home or self-care (01) ==
LOC: C.ER 12:05
DX: S05.02XA Injury of conjunctiva and corneal abrasion without foreign body, left eye, initial encounter (principal); X58.XXXA Exposure to other specified factors, initial encounter; H11.32 Conjunctival hemorrhage, left eye

== ENCOUNTER 2019-03-25 15:43 | Emergency (ER) | payer MEDICARE, OTHER ==
[2019-03-25 15:43] VITALS: BMI 21.9
[2019-03-25 16:05] VITALS: RESP 18
--- NOTE | 2019-03-25 16:18 | C.PDOC ---
History Of Present Illness 83 year old male presents to ED after accidentally hitting his head on the handle of his freezer today at approximately 1530. Patient hit the top while standing up to get fruit. He states that he felt dizzy and localized tenderness. He states the dizziness has since resolved and he only feels minor tenderness. He denies fall, loss of consciousness, headache, and dizziness. - HPI Time Seen by Provider: 03/25/19 16:15 Chief Complaint (Nursing): Trauma History Per: Patient History/Exam Limitations: no limitations Onset/Duration Of Symptoms: Hrs (3) Injury Occurred (Timing): Hours Ago: (3) Location Of Injury: Anterior: Head (top of head) Past Medical History Reviewed: Historical Data, Nursing Documentation, Vital Signs Vital Signs: Last Vital Signs Temp 97.9 F 03/25/19 15:58 Pulse 87 03/25/19 15:58 Resp 18 03/25/19 15:58 BP 152/74 H 03/25/19 15:58 Pulse Ox 96 03/25/19 15:58 Primary Care Provider: Angelique Gonzales - Medical History PMH: Benign Prostatic Hyperplasia, CAD, Diabetes (Blood sugar 119), Diverticulitis, HTN, Hypercholesterolemia, Kidney Stones, Pneumonia, Chronic Kidney Disease, TIA Surgical History: Cholecystectomy, Coronary Stent (2007) - [facility] Procedures CORONAR ARTERIOGR-2 CATH (05/06/14) ESOPHAGOGASTRODUODENOSCOPY [EGD] W/CLOSED BIOPSY (05/06/14) IRRIGATION OF EAR (02/13/14) LEFT HEART CARDIAC CATH (05/06/14) LT HEART ANGIOCARDIOGRAM (05/06/14) Family History: States: Unknown Family Hx - Social History Hx Tobacco Use: No Hx Alcohol Use: No Hx Substance Use: No - Immunization History Hx Tetanus Toxoid Vaccination: No Hx Influenza Vaccination: No Hx Pneumococcal Vaccination: No Review Of Systems Eyes: Negative for: Vision Change Gastrointestinal: Negative for: Nausea, Vomiting Neurological: Negative for: Headache, Dizziness, Other (tenderness to the top of head) Physical Exam - Physical Exam Appears: Non-toxic, No Acute Distress, Other (elderly male, younger appearing that stated age) Skin: Normal Color, Warm, Dry Head: Atraumatic, Normacephalic, No Other (- contusion or abrasion noted at vertex) Eye(s): bilateral: Normal Inspection, PERRL, EOMI Ear(s): Bilateral: Normal Neck: Normal ROM, Supple Chest: Symmetrical, No Deformity Cardiovascular: Rhythm Regular, No Murmur Respiratory: No Accessory Muscle Use, No Rales, No Rhonchi, No Wheezing Gastrointestinal/Abdominal: Soft, No Tenderness Extremity: Capillary Refill (<2 seconds) Extremity: Bilateral: Atraumatic, Normal Color And Temperature, Normal ROM Pulses: Left Radial: Normal, Right Radial: Normal Neurological/Psych: Oriented x3, Normal Speech, Normal Cognition ED Course And Treatment O2 Sat by Pulse Oximetry: 96 (in RA) Pulse Ox Interpretation: Normal - CT Scan/US head CT Other Rad Studies (CT/US): Interpreted By Me, Read By Radiologist, Radiology Report Reviewed (no acute issues) Progress Note: Head CT and glucose POC ordered for patient. Patient given tyl enol PO and ice pack to be applied to the top of the head. Medical Decision Making Medical Decision Making: accidental vertex contusion, standing in front of refrigerator striking top of head on top freezer handle no contusion/lac/abrasion/hematoma normal head CT normal gait, not dizzy no prodrome stable for d/c home. Disposition Doctor Will See Patient In The: Office Counseled Patient/Family Regarding: Studies Performed, Diagnosis - Disposition Referrals: Angelique Gonzales MD [Staff Provider] - Disposition: HOME/ ROUTINE Disposition Time: 17:41 Condition: GOOD Additional Instructions: normal Head CT tylenol as needed ice packs 1/2 hour per hour as needed. Instructions: Minor Head Injury Forms: [facility] (Hungarian) - Clinical Impression Clinical Impression: Minor closed head injury - Scribe Statement The provider has reviewed the documentation as recorded by the Scribe (Kathleen Ruff) All medical record entries made by the Scribe were at my direction and personally dictated by me. I have reviewed the chart and agree that the record accurately reflects my personal performance of the history, physical exam, medical decision making, and the department course for this patient. I have also personally directed, reviewed, and agree with the discharge instructions and disposition.
[2019-03-25 17:48] VITALS: BP 151/72; PULSE 74; TEMP 97.8
--- NOTE | 2019-03-25 17:51 | CT ---
Date of service: 03/25/2019 PROCEDURE: CT HEAD WITHOUT CONTRAST. HISTORY: vertex contusion, standing from fridge hit handle COMPARISON: Noncontrast head CT performed 09/16/16 TECHNIQUE: Axial computed tomography images were obtained through the head/brain without intravenous contrast. Radiation dose: Total exam DLP = 1085.77 mGy-cm. This CT exam was performed using one or more of the following dose reduction techniques: Automated exposure control, adjustment of the mA and/or kV according to patient size, and/or use of iterative reconstruction technique. FINDINGS: HEMORRHAGE: No intracranial hemorrhage. BRAIN: Diffuse atrophy with prominence of the ventricles and sulci noted. No mass effect or edema. Intracranial atherosclerosis. Scattered periventricular and subcortical white matter hypodensities, which are nonspecific, but often seen with chronic microvascular ischemic disease. Please note that MRI with diffusion imaging is more sensitive in the detection of acute ischemic event. VENTRICLES: No hydrocephalus. CALVARIUM: Unremarkable. PARANASAL SINUSES: Unremarkable as visualized. No significant inflammatory changes. MASTOID AIR CELLS: Unremarkable as visualized. No inflammatory changes. OTHER FINDINGS: None. IMPRESSION: Generalized atrophy. Nonspecific white matter changes.
[2019-03-25 18:22] VITALS: O2SAT 96
== END 2019-03-25 17:53 | disposition home or self-care (01) ==
LOC: C.ER 15:43
DX: S09.90XA Unspecified injury of head, initial encounter (principal); W22.8XXA Striking against or struck by other objects, initial encounter